=== PATIENT | male | born 1945 | race Two or more races ===

== ENCOUNTER 2016-06-13 15:01 | Inpatient (IN) | payer OTHER, MEDICAID ==
[2016-06-13] MEDS ORDERED: LIDO/EPI 1% **Not for Epidural 20 ML MDV IF ONE (18:00)
[2016-06-13] MEDS ORDERED: LIDO/EPI 1% **for epidural** 30 ML SDV IF ONE (18:00)
[2016-06-13] MEDS ORDERED: ACETAMINOPHEN 325 MG TAB PO PRN (18:14)
[2016-06-13] MEDS ORDERED: DIAZEPAM 5 MG TAB PO PRN (18:25)
[2016-06-13 20:12] LABS: ALANINE AMINOTRANSFERASE 35 IU/L (21-72); ALBUMIN 3.3 g/dL (3.5-5.0); ALKALINE PHOSPHATASE 72 IU/L (38-126); ANION GAP 7 mEq/L (8-16); ASPARTATE AMINOTRANSFERASE 36 IU/L (17-59); CALCIUM 9.1 mg/dL (8.5-10.4); CARBON DIOXIDE 21 mEq/l (22-31); CHLORIDE 111 mEq/L (97-110); CREATININE 1.2 mg/dL (0.7-1.3); GLOMERULAR FILTRATION RATE 60; GLUCOSE 99 mg/dL (70-100); POTASSIUM 3.5 mEq/L (3.5-5.2); SODIUM 139 mEq/L (134-144)
[2016-06-13] MEDS ORDERED: PNEUMOC 13-VAL CONJ-DIP CRM/PF 0.5 ML SYR IM ONE (20:38)
[2016-06-13] MEDS: FAMOTIDINE 20 MG TAB PO SCH (20:41)
[2016-06-14] MEDS ORDERED: DIAZEPAM 10 MG/2 ML SYR ONE (07:34)
[2016-06-14] MEDS: DIAZEPAM 10 MG/2 ML SYR IVP SCH ×5 (07:37→22:00)
[2016-06-14] MEDS: DEXMEDETOMIDINE HCL 400 MCG in NS 100 ML IV SCH (08:29)
[2016-06-14] MEDS ORDERED: NS 1,000 ML IV SCH (08:30)
[2016-06-14] MEDS ORDERED: HYDROCODONE/APAP 5/325 TAB PO PRN (08:30)
--- NOTE | 2016-06-14 08:43 | GHP ---
[f rep st] HISTORY AND PHYSICAL DATE OF ADMISSION: 06/13/2016 REASON FOR ADMISSION: Severe spinal cord stenosis with bilateral upper extremity weakness. HOSPITAL COURSE AND HISTORY OF MAJOR MEDICAL FINDINGS: The patient is a 70-year -old gentleman who presented to Dr. Reeves's outpatient clinic yesterday with complaints of bilateral feet and leg pain, back pain, and progressive weakness in his arms. He has perpherial vascular surgery in December 2015. Following that procedure, he developed pain in his right leg despite the surgery. He complained of continued pain into his right leg. He underwent ultrasound, which was found to have some continued stenosis, and was scheduled for another stent into that area in the upcoming future. Then in May of 2016, he started to have some back pain, but it was not a huge issue. He had pain going to his bilateral feet and his legs below his knees. He has been using a four- wheel walker since May of 2016, but used walking sticks for years prior to that time. He has had progressive weakness in his hands and his arms, is no longer able to feed himself, and that has been going on since April of 2016. He has been having neck pain, which has been stable for years. He has a history of rheumatoid arthritis, for which he takes daily pain medication for. The patient underwent a cervical MRI at [facility] on 06/11/2016, which demonstrated markedly anterior wedging of the C3 vertebral body with endplate irregularity and disc space narrowing at the C2-3 level, as well as the C5-6 level due to degenerative changes. 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 There is moderate central canal stenosis at C1 and C2-3 with cord signal changes. There is also evidence of mild encephalomalacia in the inferior left cerebellum. REVIEW OF SYSTEMS: Negative other than what is stated in the HPI. Please see for pertinent negatives, pertinent positives. PAST MEDICAL HISTORY: History of rheumatoid arthritis, history of peripheral vascular disease, history of chronic pain, history of hypercholesteremia. FAMILY HISTORY: His son is at his bedside helping him. He is alive and well without any significant past medical history. SOCIAL HISTORY: The patient is a former smoker. He quit 36 years ago. He does not use any alcohol. His and son are present in the exam room. ALLERGIES: No known drug allergies. HOME MEDICATIONS: Amitriptyline 20 mg 1 p.o. at bedtime. Atorvastatin 40 mg 1 p.o. daily. Plavix 75 mg 1 p.o. daily. Gabapentin 300 mg 1 p.o. every midday and every evening, with 600 mg q.a.m. [place] 5/325, 1-2 tabs q.4-6 hours p.r.n. pain. Leflunomide 20 mg 1 p.o. daily. Naproxen 500 mg 1 p.o. twice daily. Pantoprazole 40 mg 1 p.o. daily and prednisone 5 mg 1 p.o. daily at bedtime. PHYSICAL EXAM: VITALS: BP 159/69, heart rate is 71, he is 97% on room air, temp is 36.7. GENERAL: The patient is in no acute distress. He is alert and oriented. His son does translate for him. NEURO: He moves all extremities x4. In his bilateral upper extremities, in his deltoids, biceps, and triceps are 4-/5. His interossei are 2/5. He is 5/5 in his bilateral lower extremities , including his iliopsoas, quadriceps, plantar flexion, dorsiflexion and EHL. He has Jean's signs bilaterally. Absent patellar reflexes. DIAGNOSTIC REVIEW: The patient underwent MRI at [facility], which demonstrated basilar invagination of C2 into the foramen magnum with 1.5 cm severe cord compression and cord signal changes. There is severe spinal stenosis at the foramen magnum, down to C3. There is moderate stenosis from the occipital junction down to C7-T1 with advanced degenerative changes. At C2- 3 and C5-6 as well. ASSESSMENT/PLAN: The patient is a 70-year-old gentleman with a history of rheumatoid arthritis, who presented to the outpatient clinic with evidence of severe spinal canal stenosis, as well as basilar invagination, and cord compression with signal changes, who was admitted directly to [facility] Emergency Room for placement of tongs and tractions given his rapid progressive hand and leg weakness and myelopathy. This morning he was placed in tongs by Dr. Reeves and myself. Please see Dr. Reeves's procedure note for further details of this. The patient did tolerate this procedure well, and his exam was stable afterwards. He does have some residual pain in his thigh, but was denying any numbness or tingling in his hands post procedure. We will plan for the OR later possibly this weekend, depending on progress with reduction. Optimize pain management, morphine and Valium ordered. Precedex will be available as well for pain management. Consult medicine for medical clearance. Q.1 hour neuro checks ordered If the patient has any change in neurologic or motor exam, please notify Neurosurgery. /[id number]/MODL MTDD
--- NOTE | 2016-06-14 09:18 | CPEKG ---
Heart Rate: 110 RR Interval: 545 P-R Interval: 324 QRSD Interval: 78 QT Interval: 344 QTC Interval: 466 P Ivins: 0 QRS Ivins: 69 T Wave Ivins: -90 EKG Severity - ABNORMAL ECG - EKG Impression: SUPRAVENTRICULAR TACHYCARDIA (THERE WAS A "P" WAVE NOTED POST PVC, BUT THIS EKG Impression: WOULD BE A LENGTHY TN DURATION (324 ms)) EKG Impression: VENTRICULAR PREMATURE COMPLEX EKG Impression: LVH WITH SECONDARY REPOLARIZATION ABNORMALITY EKG Impression: ST DEPRESSION, CONSIDER ISCHEMIA, ANT-LAT LDS Electronically Signed By: Gustavo Lawson 15-Jun-2016 09:04:32
--- NOTE | 2016-06-14 09:23 | GCON ---
[f rep st] CONSULTATION DATE OF CONSULTATION: 06/14/2016 REASON FOR CONSULTATION: I was asked by Dr. Reeves to see the patient in regard to his medical prob lems, including rheumatoid arthritis and peripheral vascular disease. HISTORY OF PRESENT ILLNESS: This is a 70-year-old man who was admitted yesterday to the neurosurger y service for cervical stenosis. Apparently, he has had a few months of numbness in his bilateral h ands with decreased motor sensation. This was initially attributed to his rheumatoid arthritis. He proceeded to have an MRI, which showed severe cervical stenosis. He met with Dr. Reeves yesterday, who admitted him to the ICU for traction with plans for likely cervical fusion. In terms of his functional status, I do not think that he is able to attain 4 METS. He gets very sh ort of breath walking with a walker about 10-15 feet. He does not have coronary artery disease, though he does have peripheral vascular disease. He has b een on Plavix, but has been 2 days now without Plavix. He also has rheumatoid arthritis, which I presume led to his cervical issues. He takes leflunomide, as well as prednisone. PAST MEDICAL HISTORY: 1. Rheumatoid arthritis. 2. Peripheral vascular disease, status post what I understand to be a percutaneous stent placed in one of the arteries of his right leg. 3. History of a right TKA. MEDICATIONS: Please see medication reconciliation. ALLERGIES: None. FAMILY HISTORY: There is no heart disease in his family. SOCIAL HISTORY: He lives with his son. He quit smoking tobacco in 1980. He has never drank alcoho l. REVIEW OF SYSTEMS: A 10-point review of systems is conducted and is negative except per HPI. PHYSICAL EXAM: VITAL SIGNS: Blood pressure 159/69, heart rate 71, respiration rate 16, saturating 97% on room air, temperature is 36.7. GENERAL: The patient is a pleasant man who is lying flat on his back in traction, appears somewhat uncomfortable. HEENT: In traction. CARDIOVASCULAR: Some p remature beats. I think that his underlying rhythm is regular. He does not have any murmurs, rubs, or gallops. PULMONARY: From the anterior aspect shows him to be clear bilaterally. He is not in any respiratory distress. ABDOMEN: Soft, nontender, nondistended. SKIN: No rash. : He does have a Lawrence catheter in place. NEUROLOGIC: Alert and oriented x3. He is moving all extre mities. I did not perform a full neurologic exam. PSYCHIATRIC: Normal mood and affect. LABS: Basic metabolic panel shows him to have a potassium of 3.5, creatinine of 1.2, bicarb is 21. IMAGING: I reviewed his cervical spine x-ray. This shows basilar invagination with posterior sublu xation of the dens, in addition to other degenerative disease. IMPRESSION AND PLAN: This is a 70-year-old man with cervical spine impingement, currently in tracti on, awaiting surgery likely in a few days. 1. Cervical spine pathology: Defer to Neurosurgery on management. He is currently getting tractio n. He is quite uncomfortable with this. He does have multiple sedatives ordered, including Precede x. I think Precedex will be quite helpful for him, though this has yet to be started. I have yanelis nued his outpatient pain medications. 2. Perioperative evaluation: Does not have any history of heart disease, though he does have perip heral vascular disease with an intervention. I do not think he can attain 4 METS. It seems as real gh this surgery is going to be necessary no matter what though. I will get a preoperative EKG, as w ell as echocardiogram to help assess his cardiac function and manage fluids perioperatively. 3. Rheumatoid arthritis: He is currently on prednisone and leflunomide. We will continue those at present doses. Given his chronic steroid use, would give him stress dose steroids perioperatively. 4. Peripheral vascular disease: We will hold his Plavix in anticipation for cervical spinal surger y. Otherwise, difficult to assess whether or not he has symptoms. Thank you for involving Hospital Medicine in the care of the patient. We will continue to follow or [place]. /[id number]/MODL
[2016-06-14] MEDS: hydrALAZINE 20 MG/ML VIAL IVP PRN (10:13)
[2016-06-14] MEDS: GABAPENTIN 300 MG CAP PO SCH ×3 (11:03→20:31)
[2016-06-14] MEDS: SENNOSIDES/DOCUSATE SODIUM TAB PO SCH ×2 (11:03→20:32)
[2016-06-14] MEDS: ATORVASTATIN CALCIUM 40 MG TAB PO SCH (11:03)
[2016-06-14] MEDS: LEFLUNOMIDE 20 MG TAB PO SCH (11:04)
[2016-06-14] MEDS: PANTOPRAZOLE SODIUM 40 MG TAB PO SCH (11:04)
[2016-06-14] MEDS: ENOXAPARIN 40 MG/0.4 ML SYR SC SCH (11:04)
[2016-06-14] MEDS: FAMOTIDINE 20 MG TAB PO SCH ×2 (11:18→20:31)
[2016-06-14] MEDS: niCARdipine/NACL 200 ML IV SCH (13:11)
--- NOTE | 2016-06-14 13:27 | ECHO ---
[id number] + + [address] : : [place] [address] : : [phone] + + Adult Echocardiographic Report + ------+ :Name: ANNA COLEMANsuzie Date: 06/14/2016 10:14 AM : : Hospital Admission Number: [id number] Locatio n: 250: :: 1945 Gender: Male Height: 62 in : :Age: 70 yrs Race: [facility] Weight: 102 lb : :Reason For Study: Eval LV Fx, Pt is on roto-bed in traction : : BSA: 1.4 meters 2 : :History: Pre Op Clearance, 1st degree block : + ------+ MMode/2D Measurements \T\ Calculations IVSd: 0.84 cm LVIDd: 4.5 cm FS: 28.9 % MV Diam: 3.0 cm LVPWd: 1.1 cm LVIDs: 3.2 cm EDV(Teich): 93.1 ml ESV(Teich): 41.3 ml EF(Teich): 55.7 % Ao root diam: 2.8 cm LVOT diam: 2.0 cm ACS: 1.7 cm LVOT area: 3.1 cm2 Normal Measurement Values: + + :LVIDd (3.5-5.7cm) IVSd (0.6-1.1cm) LVPWd (0.6-1.1cm) Aortic Root (2.0-3.7cm)Left Atrium (1.5-4.0cm): :LV Vol(d) (76-115ml) LV Vol(s) (29-48ml) Ejec Fraction (50-65%)PV Yordan (0.6- 1.2m/s) TV Yordan (0.4-1.0m/s) : :MV E Yordan (0.8-1.0m/s)MV A Yordna (0.3-1.0m/s)LVOT Yordan (0.7-1.2m/s) Asc Ao Yordan ( 0.9-1.8m/s) : + + Doppler Measurements \T\ Calculations MV E max yoradn: MV V2 mean: Ao mean PG: AI max yordan: 122.4 cm/sec 71.1 cm/sec 5.0 mmHg 370.6 cm/sec MV mean P.5 mmHgAo V2 mean: AI max PG: MV V2 VTI: 17.8 cm 101.1 cm/sec 54.9 mmHg MV area (1 diam): Ao V2 VTI: 26.7 cm 7.1 cm2 ANDER(I,D): 1.6 cm2 MVA(VTI): 2.4 cm2 MV Flow area(1diam): 7.1 cm2 LV V1 max: MR max yordan: MR(RF 1 diam): SV(MV 1 diam): 82.4 cm/sec 476.3 cm/sec 19.1 % 125.7 ml LV V1 max PG: MR max P.4 mmHg SI(MV 1 diam): 2.7 mmHg LV V1 mean P.5 ml/m2 1.1 mmHg SV(LVOT): 42.2 ml LV V1 mean: 44.9 cm/sec LV V1 VTI: 13.4 cm PA V2 max: RF(MV,Ao)(1 diam): - 92.3 cm/sec 0.29 PA max P.4 mmHgRF(MV,LVOT)(1diam): 0.66 Left Ventricle The left ventricle is normal in size. There is normal left ventricular wall thickness. Left ventricular systolic function is low normal. Ejection Fraction = 55%. There is Doppler evidence for diastolic dysfunction. There is mid inferolateral hypokinesis. Right Ventricle The right ventricle is normal in size and function. Atria The left atrial size is normal. Right atrial size is normal. Mitral Valve There is no mitral valve stenosis. There is mild to moderate mitral regurgitation. Tricuspid Valve Normal tricuspid valve. There is trace tricuspid regurgitation. Right ventricular systolic pressure is normal. Aortic Valve The aortic valve is normal in structure and function. There is no aortic stenosis. Mild aortic regurgitation. Pulmonic Valve The pulmonic valve is normal in structure and function. There is no pulmonic valvular regurgitation. Great Vessels The aortic root is normal size. Pericardium/Pleural There is no pericardial effusion. Conclusion A complete two-dimensional transthoracic echocardiogram was performed (2D, M-mode, Doppler and color flow Doppler). Left ventricular systolic function is low normal. Ejection Fraction = 55%. There is Doppler evidence for diastolic dysfunction. There is mid inferolateral hypokinesis. The right ventricle is normal in size and function. The left atrial size is normal. There is mild to moderate mitral regurgitation. There is trace tricuspid regurgitation. Right ventricular systolic pressure is normal. The aortic valve is normal in structure and function. Mild aortic regurgitation. There is no pericardial effusion. Final Reading Physician: Juan C Card signed on 06/14/2016 01:26 PM Ordering Physician: Darshan Hernandez Performed By: Erick Dumont, TIMOTHYCS
--- NOTE | 2016-06-14 13:54 | GCON ---
[f rep st] CONSULTATION ARCHITECTURE PROFESSOR CONSULTATION The patient is a 70-year-old [place] gentleman with a past medical history including rheumatoid arth ritis, peripheral vascular disease and hypercholesterolemia. He was admitted under Dr. Reeves for n tyshawn pain. He has had problems with this for years. Recent MRI demonstrated anterior wedging of the C3 vertebrae with endplate irregularity, disk space narrowing at C2-C3 as well as C5-C6. He was ad mitted with severe spinal canal stenosis. He has been placed on cervical traction as well as rotati onal bed. Currently, he is on Precedex. He does not speak Belgian. All history is gleaned from [facility] medical record. PAST MEDICAL HISTORY: Significant for rheumatoid arthritis, peripheral vascular disease, chronic pa in, hypercholesterolemia. ALLERGIES: No known allergies to medications. SOCIAL HISTORY: Previous heavy smoker, none for 36 years. No significant alcohol use. He is retir ed. He has excellent family support. MEDICATIONS: At home include amitriptyline, atorvastatin, Plavix, gabapentin, [place], leflunomide, n aproxen, pantoprazole, prednisone. PHYSICAL EXAM: VITAL SIGNS: Blood pressure is 152/69, pulse is 90, respirations 16. He is afebril e. Oxygen saturation 100% on 2 L. GENERAL: He is a well-developed, elderly male who is resting co mfortably on Precedex drip and rotational bed and cervical traction. HEENT: Eyes are PADMINI, EOMI. Throat shows no erythema or tonsillar hypertrophy. NECK: Deferred. HEART: Regular rate and rhyth m with a 2/6 systolic murmur at the left sternal border without radiation. LUNGS: Diminished breat h sounds. Mild prolongation of expiratory phase but there is no wheeze. ABDOMEN: Soft, nontender. Bowel sounds present in all 4 quadrants. EXTREMITIES: No clubbing, cyanosis or edema. LABORATORIES: Sodium 139, potassium 3.5, chloride 111, CO2 21, BUN 31, creatinine 1.2, glucose is 9 9. IMPRESSION: 1. Chronic neck pain. 2. Severe spinal canal stenosis as well as basilar invagination and cord compression. 3. Rheumatoid arthritis. 4. Hypercholesterolemia. 5. Chronic pain. RECOMMENDATIONS: 1. Close cardiovascular monitoring. 2. Echocardiogram is currently pending. 3. Agree with cervical traction as well as rotational bed. 4. Continue Precedex as you were doing. 5. DVT and PE prophylaxis. 6. Stress ulcer prophylaxis. /[id number]/MODL
--- NOTE | 2016-06-14 16:17 | HOSPPROG ---
Hospitalist Progress Note Assessment/Plan: 70 yo M with hx of RA and severe cervical spinal stenosis with associated inability to ambulate # severe cervical spinal stensosi: with associated cord compression and now inability to ambulate, patient currently in cervical traction with plan for surgical intervention when better alignment obtained. # RA: has been severe, continued on leflunomide and prednisone # htn: not chronically on bp meds and bp elevatoin possibly related to pain, prn hydralazine for now, monitoring # diastolic heart failure: with relatively preserved EF at 55%, does not have e/ o decompensation, will be cautious with fluids perioperatively # IP status, high risk Objective: Vital Signs Temp Pulse Resp BP Pulse Ox 36.8 C 80 18 123/66 H 100 06/14/16 16:00 06/14/16 16:00 06/14/16 16:00 06/14/16 16:00 06/14/16 16:00 Laboratory Results 06/13/16 19:00 06/13/16 06/14/16 06/15/16 05:59 05:59 05:59 Intake Total 450 Balance 450 ICD10 Worksheet Patient Problems: Problems Problem Status Onset Spinal stenosis in cervical region Acute - ICD10 Problem Qualifiers (1) Spinal stenosis in cervical region
[2016-06-14] MEDS: predniSONE 5 MG TAB PO SCH (20:31)
[2016-06-14] MEDS: AMITRIPTYLINE HCL 10 MG TAB PO SCH (20:31)
[2016-06-15] MEDS: DIAZEPAM 10 MG/2 ML SYR IVP SCH ×6 (01:49→21:01)
[2016-06-15] MEDS: DEXMEDETOMIDINE HCL 400 MCG in NS 100 ML IV SCH ×2 (02:39→21:02)
[2016-06-15 04:32] LABS: ANION GAP 12 mEq/L (8-16); CALCIUM 8.4 mg/dL (8.5-10.4); CARBON DIOXIDE 15 mEq/l (22-31); CHLORIDE 113 mEq/L (97-110); CREATININE 1.2 mg/dL (0.7-1.3); GLOMERULAR FILTRATION RATE 60; GLUCOSE 57 mg/dL (70-100); POTASSIUM 4.5 mEq/L (3.5-5.2); SODIUM 140 mEq/L (134-144)
--- NOTE | 2016-06-15 07:56 | GPN ---
[f rep st] PROCEDURE NOTE DATE OF PROCEDURE: 06/14/2016 PREOP DIAGNOSES: 1. 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 2. Cervical stenosis 3. Rapid progressive myelopathy. PROCEDURE: Cranial Mcdermott-Wells tongs placement for cervical traction. POSTOP DIAGNOSES: 1. 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 2. Cervical stenosis. 3. Rapid progressive myelopathy. COMPLICATIONS: None. ANESTHESIA: Local anesthetic with Marcaine with epinephrine and IV pain medications. CERTIFIED BENCH JEWELER TECHNICIAN: None. SPECIMENS: None. INDICATIONS: The patient is a 70-year-old gentleman, who has presented with rapid onset of progressive myelopathy and weakness. Imaging demonstrated severe basilar invagination with spinal cord compression. He presents now to the hospital for admission for cervical traction. This dictation is for placement of the cranial Mcdermott-Wells tongs. DESCRIPTION OF PROCEDURE: The patient was laid flat on the RotoRest bed. After consent and a time-out was completed, we marked out 2 small incisions just 1 fingerbreadth above the bilateral pinna. These areas were then prepped sterilely. The sites were then infiltrated with Marcaine with epinephrine to the level of the pericranium. We then placed 2 Mcdermott-Wells tongs pins bilaterally 1 fingerbreadth above the pinna to the appropriate depth using the spring loaded pin mechanism. The patient tolerated the procedure well. There were no complications. /[id number]/MODL MTDD
[2016-06-15] MEDS ORDERED: GABAPENTIN 300 MG CAP PO SCH (08:00)
[2016-06-15] MEDS: LEFLUNOMIDE 20 MG TAB PO SCH (08:42)
[2016-06-15] MEDS: GABAPENTIN 300 MG CAP PO SCH ×3 (08:42→21:01)
[2016-06-15] MEDS: SENNOSIDES/DOCUSATE SODIUM TAB PO SCH ×2 (08:42→21:01)
[2016-06-15] MEDS: FAMOTIDINE 20 MG TAB PO SCH ×2 (08:43→21:01)
[2016-06-15] MEDS: ATORVASTATIN CALCIUM 40 MG TAB PO SCH (08:43)
[2016-06-15] MEDS: PANTOPRAZOLE SODIUM 40 MG TAB PO SCH (08:43)
[2016-06-15] MEDS: ENOXAPARIN 40 MG/0.4 ML SYR SC SCH (08:45)
[2016-06-15] MEDS ORDERED: CHLORHEXIDINE GLUC HIBICLENS 118 ML BTL TP SCH (09:00)
[2016-06-15] MEDS: NS W/ 20 KCl/L 1,000 ML IV SCH ×2 (09:15→21:07)
--- NOTE | 2016-06-15 09:28 | PDINTPN ---
Burr Sander Progress Note Assessment/Plan: Assessment: * Chronic Neck pain * Spinal stenosis with cord compression * RA * Chronic pain * Sedation-adequate Plan: Continue traction with rotational bed Surgery in few days Subjective: Resting comfortably Objective: Vital Signs Temp Pulse Resp BP Pulse Ox 36.8 C 68 20 124/53 H 100 06/15/16 08:00 06/15/16 09:00 06/15/16 09:00 06/15/16 09:00 06/15/16 09:00 Laboratory Results 06/15/16 04:10 06/14/16 06/15/16 06/16/16 05:59 05:59 05:59 Intake Total 450 2685 Output Total 945 Balance 450 1740 Physical Exam - Physical Exam General Appearance: other (sedated), No alert EENT: PERRL/EOMI, normal ENT inspection, pharynx normal, TMs normal Neck: other (c-collar) Respiratory: chest non-tender, lungs clear, normal breath sounds Cardiac/Chest: normal peripheral pulses, regular rate, rhythm, systolic murmur Peripheral Pulses: 2+: carotid (R), carotid (L), femoral (R), femoral (L), dorsalis-pedis (R), dorsalis-pedis (L) Abdomen: normal bowel sounds, non-tender, soft Male Genitalia: deferred Rectal: deferred Skin: normal color, warm/dry Extremities: normal range of motion, non-tender, normal inspection, normal capillary refill ICD10 Worksheet Patient Problems: Problems Problem Status Onset Spinal stenosis in cervical region Acute
--- NOTE | 2016-06-15 10:15 | NEUSURGPN ---
<Ebony Barboza - Last Filed: 06/15/16 10:15> Catheter Insertion Date: 06/14/16 Neurosurgery Physical Exam - Vitals, I&O, Labs I and O 06/14/16 06/15/16 06/16/16 05:59 05:59 05:59 Intake Total 450 2685 Output Total 945 Balance 450 1740 Weight 46.6 kg Intake: Oral (ml) 450 950 IV Infused (ml) 1735 Dexmedetomidine HCl 400 110 mcg In Ns 100 ml @ Titrate IV CONT ANH Rx#: [id number] Ns 1,000 ml @ 20 mls/hr 1625 IV CONT ANH Rx#: [id number] Output: Urine (ml) 945 Catheter 945 Other: Intake Quantity Yes Sufficient Number of Voids Toilet 2 Number of Stools Catheter 1 Vital Signs Temp Pulse Resp BP Pulse Ox 36.8 C 60 21 H 131/59 H 100 06/15/16 08:00 06/15/16 08:00 06/15/16 08:00 06/15/16 08:00 06/15/16 08:00 Laboratory Results 06/15/16 04:10 ICD10 Worksheet Patient Problems: Problems Problem Status Onset Spinal stenosis in cervical region Acute <Los Reeves - Last Filed: 06/15/16 16:45> Assessment/Plan: neurosurgery attending note i met with the patient and his family after reviewing his new CT C spine. He has a fused O-C1-C2 segment with posterior fusion C2/3. There is no migration of the odontoid process, but there is improvement in his overall alignement from C2 and below. he continues to have stenosis, but his strength is slightly improved in his hands from a few days ago. I discussed the options with the family and reviewed the films with them and their friend who is a neurointensivist in [place]. explained anterior versus posterior options, as well as short versus long segment fusion/decompression. i also offered them transfer to the [facility] if they desired. the understand all options and would like to proceed with surgery as planned: sub-occipital craniectomy with C1 -C3 laminectomy and posterior fusion Occiput-C4 (versus T1 if bone quality is poor). consents have been signed and surgery is scheduled for 06/17 given his recent use of plavix. Neurosurgery Physical Exam - Vitals, I&O, Labs I and O 06/14/16 06/15/16 06/16/16 05:59 05:59 05:59 Intake Total 450 2685 360 Output Total 945 275 Balance 450 1740 85 Weight 46.6 kg Intake: Oral (ml) 450 950 360 IV Infused (ml) 1735 Dexmedetomidine HCl 400 110 mcg In Ns 100 ml @ Titrate IV CONT ANH Rx#: [id number] Ns 1,000 ml @ 20 mls/hr 1625 IV CONT ANH Rx#: [id number] Output: Urine (ml) 945 275 Catheter 945 275 Other: Intake Quantity Yes Sufficient Number of Voids Toilet 2 Number of Stools Catheter 1 Vital Signs Temp Pulse Resp BP Pulse Ox 36.3 C 65 18 158/58 H 100 06/15/16 15:00 06/15/16 16:00 06/15/16 16:00 06/15/16 16:00 06/15/16 16:00 Laboratory Results 06/15/16 04:10
--- NOTE | 2016-06-15 16:39 | HOSPPROG ---
Hospitalist Progress Note Assessment/Plan: 70 yo M with hx of RA and severe cervical spinal stenosis with associated inability to ambulate # severe cervical spinal stensosi: with associated cord compression and now inability to ambulate, patient currently in cervical traction with plan for surgical intervention when better alignment obtained. Repeat c spine xray and CT showing that c2/c3 in alignment in traction # RA: has been severe, continued on leflunomide and prednisone # htn: not chronically on bp meds and bp elevatoin possibly related to pain, prn hydralazine for now, monitoring # diastolic heart failure: with relatively preserved EF at 55%, does not have e/ o decompensation, will be cautious with fluids perioperatively # IP status, high risk Care plan reviewed with Dr. Fenton and multidisciplinary care team on rounds Subjective: no signficant overnight events, patient remains in traction Objective: Vital Signs Temp Pulse Resp BP Pulse Ox 36.3 C 65 18 158/58 H 100 06/15/16 15:00 06/15/16 16:00 06/15/16 16:00 06/15/16 16:00 06/15/16 16:00 Laboratory Results 06/15/16 04:10 06/14/16 06/15/16 06/16/16 05:59 05:59 05:59 Intake Total 450 2685 360 Output Total 945 275 Balance 450 1740 85 somnolent, in roto bed in traction anicteric c collar on rrr cta b to ant exam soft nt nd ICD10 Worksheet Patient Problems: Problems Problem Status Onset Spinal stenosis in cervical region Acute - ICD10 Problem Qualifiers (1) Spinal stenosis in cervical region
[2016-06-15] MEDS: hydrALAZINE 20 MG/ML VIAL IVP PRN (20:12)
[2016-06-15] MEDS: AMITRIPTYLINE HCL 10 MG TAB PO SCH (21:00)
[2016-06-15] MEDS: predniSONE 5 MG TAB PO SCH (21:01)
[2016-06-15] MEDS: TEARS/DEXTRAN 70/HYPROMELLOSE 15 ML OPHT.BTL EACHEYE PRN (21:13)
--- NOTE | 2016-06-15 23:33 | CPEKG ---
Heart Rate: 99 RR Interval: 606 P-R Interval: 208 QRSD Interval: 76 QT Interval: 348 QTC Interval: 447 P [place]: 79 QRS [place]: 46 T Wave [place]: 223 EKG Severity - ABNORMAL ECG - EKG Impression: SINUS RHYTHM EKG Impression: PROBABLE LVH WITH SECONDARY REPOL ABNRM EKG Impression: BORDERLINE INFERIOR Q WAVES EKG Impression: REPOL ABNRM, PROBABLE ISCHEMIA, ANT-LAT LEADS Electronically Signed By: Gustavo Lawson 17-Jun-2016 18:26:01
[2016-06-15 23:58] LABS: ANION GAP 10 mEq/L (8-16); CALCIUM 8.6 mg/dL (8.5-10.4); CARBON DIOXIDE 15 mEq/l (22-31); CHLORIDE 112 mEq/L (97-110); CREATININE 0.9 mg/dL (0.7-1.3); GLOMERULAR FILTRATION RATE > 60; GLUCOSE 124 mg/dL (70-100); POTASSIUM 5.7 mEq/L (3.5-5.2); SODIUM 137 mEq/L (134-144); SPECIMEN HEMOLYSIS 142
[2016-06-16] MEDS: NS 1,000 ML IV SCH ×2 (00:30→14:40)
[2016-06-16] MEDS: DIAZEPAM 10 MG/2 ML SYR IVP SCH ×6 (01:55→21:49)
[2016-06-16 04:45] LABS: HEMATOCRIT 40.2 % (40.0-51.0); HEMOGLOBIN 12.3 g/dL (13.7-17.5); MEAN CELL HEMOGLOBIN 26.2 pg (27.9-34.1); MEAN CELL HEMOGLOBIN CONCENTR. 30.6 g/dL (32.4-36.7); MEAN CELL VOLUME 85.7 fL (81.5-99.8); RED BLOOD CELL COUNT 4.69 10^6/uL (4.40-6.38); RED CELL DISTRIBUTION WIDTH 15.9 % (11.5-15.2)
[2016-06-16 05:13] LABS: ANION GAP 6 mEq/L (8-16); CALCIUM 7.4 mg/dL (8.5-10.4); CARBON DIOXIDE 17 mEq/l (22-31); CHLORIDE 116 mEq/L (97-110); CREATININE 0.8 mg/dL (0.7-1.3); GLOMERULAR FILTRATION RATE > 60; GLUCOSE 109 mg/dL (70-100); POTASSIUM 4.8 mEq/L (3.5-5.2); SODIUM 139 mEq/L (134-144); SPECIMEN HEMOLYSIS 126
[2016-06-16] MEDS: hydrALAZINE 20 MG/ML VIAL IVP PRN (07:33)
[2016-06-16] MEDS: niCARdipine/NACL 200 ML IV SCH ×3 (07:45→23:42)
[2016-06-16] MEDS: FAMOTIDINE 20 MG TAB PO SCH ×2 (08:22→20:15)
[2016-06-16] MEDS: PANTOPRAZOLE SODIUM 40 MG TAB PO SCH (08:22)
[2016-06-16] MEDS: LEFLUNOMIDE 20 MG TAB PO SCH (08:22)
[2016-06-16] MEDS: GABAPENTIN 300 MG CAP PO SCH ×3 (08:22→20:15)
[2016-06-16] MEDS: ATORVASTATIN CALCIUM 40 MG TAB PO SCH (08:22)
[2016-06-16] MEDS: SENNOSIDES/DOCUSATE SODIUM TAB PO SCH ×2 (08:23→20:14)
[2016-06-16] MEDS: ENOXAPARIN 40 MG/0.4 ML SYR SC SCH (08:23)
[2016-06-16] MEDS: TEARS/DEXTRAN 70/HYPROMELLOSE 15 ML OPHT.BTL EACHEYE PRN (08:24)
--- NOTE | 2016-06-16 09:35 | PDINTPN ---
Publicity Manager Progress Note Assessment/Plan: Assessment: * Chronic Neck pain * Spinal stenosis with cord compression * RA * Chronic pain * Sedation-adequate Plan: Continue traction with rotational bed Surgery soon Subjective: comfortable. Objective: Vital Signs Temp Pulse Resp BP Pulse Ox 36.3 C 96 28 H 158/66 H 97 06/16/16 08:32 06/16/16 08:32 06/16/16 08:32 06/16/16 08:32 06/16/16 08:32 Laboratory Results 06/16/16 04:20 06/16/16 04:20 06/15/16 06/16/16 06/17/16 05:59 05:59 05:59 Intake Total 2685 2830 Output Total 945 1775 Balance 1740 1055 Physical Exam - Physical Exam General Appearance: other (sedated), No alert EENT: PERRL/EOMI, normal ENT inspection Neck: other (c-collar) Respiratory: chest non-tender, lungs clear, normal breath sounds Cardiac/Chest: normal peripheral pulses, regular rate, rhythm Peripheral Pulses: 2+: carotid (R), carotid (L), femoral (R), femoral (L), dorsalis-pedis (R), dorsalis-pedis (L) Abdomen: normal bowel sounds, non-tender, soft Male Genitalia: deferred Rectal: deferred Skin: normal color, warm/dry ICD10 Worksheet Patient Problems: Problems Problem Status Onset Spinal stenosis in cervical region Acute
--- NOTE | 2016-06-16 09:40 | NEUSURGPN ---
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 Reeves Subjective: family at bedside, patient speaks no jordanian, son translates. Son is very positive. Pt appears tired, follows commands but does not speak very much. Objective: NAD, in traction bed and ccollar in good position follows commands no facial droop MAEx4, antigravity, ekg monitor tech strength 3/5 today but appears effort dependent. Catheter Insertion Date: 06/14/16 - Physician Discussed Patient with Dr.: Reeves Neurosurgery Physical Exam - Vitals, I&O, Labs I and O 06/15/16 06/16/16 06/17/16 05:59 05:59 05:59 Intake Total 2685 2830 Output Total 945 1775 Balance 1740 1055 Intake: Oral (ml) 950 860 IV Infused (ml) 1735 1970 Dexmedetomidine HCl 400 110 120 mcg In Ns 100 ml @ Titrate IV CONT ANH Rx#: [id number] NS W/ 20 KCl/L 1,000 ml @ 900 75 mls/hr IV CONT ANH Rx #:[id number] Ns 1,000 ml @ 20 mls/hr 1625 IV CONT ANH Rx#: [id number] Ns 1,000 ml @ 75 mls/hr 950 IV CONT ANH Rx#: [id number] Output: Urine (ml) 945 1775 Catheter 945 1775 Other: Intake Quantity Yes Sufficient Number of Stools Catheter 1 Vital Signs Temp Pulse Resp BP Pulse Ox 36.3 C 96 28 H 158/66 H 97 06/16/16 08:32 06/16/16 08:32 06/16/16 08:32 06/16/16 08:32 06/16/16 08:32 Laboratory Results 06/16/16 04:20 06/16/16 04:20 ICD10 Worksheet Patient Problems: Problems Problem Status Onset Spinal stenosis in cervical region Acute
[2016-06-16] MEDS ORDERED: ceFAZolin 2 GM/DEXTROSE 100 ML IV ONE (09:43)
[2016-06-16] MEDS ORDERED: BISACODYL 10 MG SUPP PR PRN (12:05)
--- NOTE | 2016-06-16 12:41 | HOSPPROG ---
Hospitalist Progress Note Assessment/Plan: 70 yo M with hx of RA and severe cervical spinal stenosis with associated inability to ambulate # severe cervical spinal stenosis: with associated cord compression and now inability to ambulate, patient currently in cervical traction with plan for surgical intervention when better alignment obtained. Repeat c spine xray and CT showing that c2/c3 in alignment in traction # htn: not chronically on bp meds but has had intermittent htn since admission, echo performed without any significant issues as next, also tachycardic in last 2 days. Likely at least in part driven by pain/anxiety. Continue prn hydralazine , pain/anxiety meds. Does have pulm infiltrates so pna also a possibility though no elevated wbc or clear pulm sxs so holding off on abx for now # pulmonary infiltrates: personally reviewed cxr--with diffuse micronodular pulm infiltrates presumably related to RA, LLL infiltrate atelectasis versus LLL PNA as well, would be at risk for aspiration certainly given traction/lying flat/sedating meds. Holding off on abx but would have low threshold to start tx for aspiration pna if any s/s infection occur. Pulmonary toilet very challenging given begin in traction/sedated etc. Minimizing sedation as able, IS , deep breath/cough as able. # RA: has been severe, continued on leflunomide and prednisone, has diffuse pulmonary infiltrates likely chronic and related to RA # diastolic heart failure: with relatively preserved EF at 55%, does not have e/ o decompensation, will be cautious with fluids perioperatively # IP status, high risk Care plan reviewed with Dr. Fenton and multidisciplinary care team on rounds. Further hx obtained from patients son present at bedside Subjective: no significant overnight events, patient remains quite somnolent, in traction, states his bilateral hands hurt Objective: Vital Signs Temp Pulse Resp BP Pulse Ox 36.4 C 102 H 24 H 151/56 H 96 06/16/16 12:00 06/16/16 12:18 06/16/16 12:18 06/16/16 12:18 06/16/16 12:18 Laboratory Results 06/16/16 04:20 06/16/16 04:20 06/15/16 06/16/16 06/17/16 05:59 05:59 05:59 Intake Total 2685 2830 Output Total 945 1775 Balance 1740 1055 somnolent, arousable, in roto bed in traction anicteric c collar on rrr cta b to ant exam, normal wob soft nt nd no cce warm dry well perfused somnolent but arousable, bue weakness - Time Spent With Patient Time Spent with Patient: greater than 35 minutes Time Spent with Patient: Greater than 35 minutes spent on this patients care, greater than 50% of time spent counseling, educating, and coordinating care regarding the above mentioned plan. ICD10 Worksheet Patient Problems: Problems Problem Status Onset Spinal stenosis in cervical region Acute - ICD10 Problem Qualifiers (1) Spinal stenosis in cervical region
[2016-06-16] MEDS: predniSONE 5 MG TAB PO SCH (20:14)
[2016-06-16] MEDS: AMITRIPTYLINE HCL 10 MG TAB PO SCH (20:15)
[2016-06-16] MEDS ORDERED: NS 500 ML IV ONE (22:41)
--- NOTE | 2016-06-16 22:48 | HOSPPROG ---
Hospitalist Progress Note Assessment/Plan: x cover note called to bedside to eval tachycardia and increased oxygen requirements chart reviewed 70 y/o male immunosuppressed secondary to RA with severe cervical spinal stenosis cxr done 06/15 reviewed showing possible LLL infiltrate a/p #acute resp failure with tachycardia suspect aspiration pneumonia eval for severe sepsis (I considered PE but think this is less likely given that he has been on Lovenox for prophylaxis) Will consider CTA chest if worsening, but don' t want to start anticoagulation given planned upcoming surgery -blood cultures -venous lactate -NS Bolus -Erta 1gm IV Objective: Vital Signs Temp Pulse Resp BP Pulse Ox 36.7 C 117 H 24 H 176/85 H 96 06/16/16 18:00 06/16/16 19:00 06/16/16 19:00 06/16/16 19:00 06/16/16 19:00 Laboratory Results 06/16/16 04:20 06/16/16 04:20 06/15/16 06/16/16 06/17/16 05:59 05:59 05:59 Intake Total 2685 2830 875 Output Total 945 1775 450 Balance 1740 1055 425 ICD10 Worksheet Patient Problems: Problems Problem Status Onset Spinal stenosis in cervical region Acute
[2016-06-16] MEDS: ERTAPENEM 1 GM in NS 100 ML IV SCH (23:57)
[2016-06-17 00:28] LABS: % IMMATURE GRANULYOCYTES 0.2 % (0.0-1.1); ABSOLUTE IMMATURE GRANULOCYTES 0.02 10^3/uL (0.00-0.10); ADD DIFF? NO; ADD MORPH? NO; ADD SCAN? NO; ATYPICAL LYMPHOCYTE FLAG 0 (0-99); FRAGMENT RBC FLAG 0 (0-99); HEMATOCRIT 42.2 % (40.0-51.0); HEMOGLOBIN 13.4 g/dL (13.7-17.5); LEFT SHIFT FLG 60 (0-99); LIPEMIA HEMOLYSIS FLAG 80 (0-99); MEAN CELL HEMOGLOBIN 26.6 pg (27.9-34.1); MEAN CELL HEMOGLOBIN CONCENTR. 31.8 g/dL (32.4-36.7); MEAN CELL VOLUME 83.7 fL (81.5-99.8); MEAN PLATELET VOLUME 11.4 fL (8.7-11.7); PLATELET CLUMPS FLAG 0 (0-99); PLATELET COUNT 169 10^3/uL (150-400); RED BLOOD CELL COUNT 5.04 10^6/uL (4.40-6.38)
[2016-06-17 00:56] LABS: INR 1.13 (0.83-1.16); PROTIME(PATIENT) 14.4 SEC (12.0-15.0)
[2016-06-17 00:57] LABS: APTT 33.1 SEC (23.0-38.0)
[2016-06-17 01:04] LABS: LACGHOST ORDER
[2016-06-17] MEDS: DIAZEPAM 10 MG/2 ML SYR IVP SCH ×4 (02:58→15:43)
[2016-06-17 04:52] LABS: ANION GAP 10 mEq/L (8-16); CALCIUM 7.6 mg/dL (8.5-10.4); CARBON DIOXIDE 15 mEq/l (22-31); CHLORIDE 114 mEq/L (97-110); GLOMERULAR FILTRATION RATE > 60; GLUCOSE 170 mg/dL (70-100); SODIUM 139 mEq/L (134-144)
[2016-06-17] MEDS: niCARdipine/NACL 200 ML IV SCH (05:04)
[2016-06-17 05:05] LABS: BASE EXCESS -7.4 mEq/L (-2.5-2.5); BICARBONATE 17 mEq/L (22-26); MEASURED OXYGEN SATURATION 92 % (92-95); PCO2 31 mmHg (34-38); PO2 72 mmHg (65-75); TCO2 18 mEq/L (23-27)
[2016-06-17] MEDS ORDERED: ceFAZolin 2 GM/DEXTROSE 100 ML IV ONE (06:00)
[2016-06-17] MEDS ORDERED: SKIN ADHESIVE (DERMABOND) 1 EACH TP ONE (07:13)
[2016-06-17] MEDS ORDERED: THROMBIN (BOVINE) 20,000 UNIT VIAL TP ONE (07:14)
[2016-06-17] MEDS ORDERED: BUPIVACAINE/EPI 0.25% 30 ML SDV ONE (07:14)
[2016-06-17] MEDS ORDERED: BACITRACIN 50,000 UNITS/10 ML SYR IRR ONE (07:14)
[2016-06-17] MEDS ORDERED: BUPIVACAINE 0.25% 30 ML SDV ONE (07:14)
[2016-06-17] MEDS ORDERED: CEFAZOLIN 2 GM/DEXTROSE/100 ML BAG IV ONE (07:24)
[2016-06-17] MEDS ORDERED: DEXAMETHASONE 4 MG/ML VIAL ONE (07:40)
[2016-06-17] MEDS ORDERED: ROCURONIUM 50 MG/5 ML VIAL ONE (07:40)
[2016-06-17] MEDS ORDERED: SUCCINYLCHOLINE CHLORIDE*ANESTHESIA ONLY*200 MG/10 ML SYR IVP ONE (07:40)
[2016-06-17] MEDS ORDERED: fentaNYL 100 MCG/2 ML INJ ONE ×3 (07:40→11:59)
[2016-06-17] MEDS ORDERED: ONDANSETRON 4 MG/2 ML VIAL ONE (07:40)
[2016-06-17] MEDS ORDERED: LIDOCAINE 2% 5 ML SDV ONE (07:41)
[2016-06-17] MEDS ORDERED: PROPOFOL/EMULSION 500 MG/50 ML BOTTLE IV ONE (07:41)
[2016-06-17] MEDS ORDERED: PHENYLEPHRINE 10 MG/ML SDV ONE (07:47)
[2016-06-17] MEDS ORDERED: ACETAMINOPHEN 325 MG TAB PO PRN (07:51)
[2016-06-17] MEDS ORDERED: ONDANSETRON DISINTEGRATING 4 MG TAB PO PRN (07:51)
[2016-06-17] MEDS ORDERED: POLYETHYLENE GLYCOL 3350 17 GM PKT PO PRN (07:51)
[2016-06-17] MEDS ORDERED: diphenhydrAMINE 25 MG CAP PO PRN (07:51)
[2016-06-17] MEDS ORDERED: LACTULOSE 20 GM/30 ML UDCUP PO PRN (07:51)
[2016-06-17] MEDS ORDERED: HYDROCODONE/APAP 10/325 TAB PO PRN (07:51)
[2016-06-17] MEDS ORDERED: ONDANSETRON 4 MG/2 ML VIAL IVP PRN (07:51)
[2016-06-17] MEDS ORDERED: MAGNESIUM HYDROXIDE 30 ML UDCUP PO PRN (07:51)
--- NOTE | 2016-06-17 07:51 | NEUSURGPN ---
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 Reeves this am and taken out of traction prior to going to the OR. Patient's son at bedside as well Subjective: family at bedside, patient speaks no Albanian, son translates. Per RN patient has a lot of secretions but other than that no events overnight. Objective: NAD, in traction bed and collar in good position follows commands no facial droop MAEx4, antigravity Launch Manager 3/5 DF/PF 3/5 Sensation intact Catheter Insertion Date: 06/14/16 - Physician Discussed Patient with Dr.: Reeves Patient Seen by : Leandro Neurosurgery Physical Exam - Vitals, I&O, Labs I and O 06/16/16 06/17/16 06/18/16 05:59 05:59 05:59 Intake Total 2830 2395 Output Total 1775 950 Balance 1055 1445 Intake: Oral (ml) 860 100 IV Infused (ml) 1970 2295 Dexmedetomidine HCl 400 120 30 mcg In Ns 100 ml @ Titrate IV CONT ANH Rx#: [id number] NS W/ 20 KCl/L 1,000 ml @ 900 75 mls/hr IV CONT ANH Rx #:[id number] Ns 1,000 ml @ 75 mls/hr 950 1725 IV CONT ANH Rx#: [id number] niCARdipine/NACL 200 ml @ 540 Titrate IV CONT ANH Rx#: [id number] Output: Urine (ml) 1775 950 Catheter 1775 950 Other: Number of Stools Catheter 1 Vital Signs Temp Pulse Resp BP Pulse Ox 36.3 C 104 H 27 H 140/76 H 93 06/17/16 05:00 06/17/16 07:00 06/17/16 07:00 06/17/16 07:00 06/17/16 07:00 Laboratory Results 06/17/16 00:00 06/17/16 04:12 ICD10 Worksheet Patient Problems: Problems Problem Status Onset Spinal stenosis in cervical region Acute <Los Reeves - Last Filed: 06/20/16 20:18> Assessment/Plan: NEUROSURGERY ATTENDING NOTE Family and patient understand the very seriousness of the surgery and possible outcomes, which could include paralysis, stroke, , pneumonia, etc. They are willing to proceed given his worsening overall condition. Neurosurgery Physical Exam - Vitals, I&O, Labs I and O 06/19/16 06/20/16 06/21/16 05:59 05:59 05:59 Intake Total 2093 1337.8 714.5 Output Total 1802 2405 510 Balance 291 -1067.2 204.5 Weight 52.3 kg Intake: Oral (ml) 0 IV Intake (ml) 1100 160 398 IV Infused (ml) 993 1177.8 66.5 Dexmedetomidine HCl 400 40 127.7 43 mcg In Ns 100 ml @ Titrate IV CONT ANH Rx#: [id number] Diltiazem 125 mg In D5w 61.8 23 125 ml @ Per Protocol IV CONT ANH Rx#:[id number] NS W/ 20 KCl/L 1,000 ml @ 889 928 75 mls/hr IV CONT ANH Rx #:[id number] Propofol/Emulsion 100 ml 32 40 @ Per Protocol IV CONT ANH Rx#:[id number] fentaNYL/NACL 100 ml @ 32 20.3 0.5 Per Protocol IV CONT ANH Rx#:[id number] Tube Feeding (ml) 50 Tube Flush (ml) 200 Output: Urine (ml) 1800 2405 510 Catheter 1800 2405 510 Wound Drainage (ml) 2 Back Fabien Mason 2 Other: Number of Stools Catheter 0 1 1 Microbiology 06/17/16 15:00 - Final Sputum, Induced/Suctioned Sputum Culture - Final Staphylococcus Aureus Vital Signs Temp Pulse Resp BP Pulse Ox 36.9 C 83 20 158/62 H 100 06/20/16 16:00 06/20/16 18:00 06/20/16 18:00 06/20/16 18:00 06/20/16 18:00 Laboratory Results 06/20/16 04:35 06/20/16 04:35
[2016-06-17] MEDS ORDERED: oxyCODONE IR 5 MG TAB PO PRN (08:00)
[2016-06-17] MEDS ORDERED: NS W/ 20 KCl/L 1,000 ML IV SCH (08:00)
--- NOTE | 2016-06-17 08:09 | POSTOPPROG ---
Post Op Note Date of Operation: 06/17/16 Surgeon: Los Reeves Supervisor Education: Christie Castro PA-C Anesthesia: GET(General Endotracheal) Pre-op Diagnosis: Cervical myelopathy, stenosis Post-op Diagnosis: same Procedure: Sub-occipital craniectomy with C1-C4 lami and PSF Occiput to T1 Inf/Abcess present in the surg proc area at time of surgery?: No Depth: Organ Space Drains: Fabien Mason SOAP Progress Note Assessment/Plan: S: Patient waking up in PACU. Stable. O: NAD, VSS Intubated PERRL,sluggish No droop Hard Cervical Collar in place,neck is soft Incision c/d/i-dressed ELLIE X 1 A/P: 70 yo male sp sub-occipital craniectomy with C1-[id number] and posterior fusion Occiput- T1 -Admit back to ICU- patient extubated but unable to tolerate and was re- intubated -Neuro checks -Postop MRI today -Postop xrays tomorrow -Hard Cervical collar at all times -Advance diet as tolerated -Optimize pain control -Follow medicine recs for BP control and medical issues -DCT: TEDs, SCDs, Lovenox ok to resume on POD #3 -Please call neurosurgery with any changes in neuro or motor exam 06/17/16 15:20 Objective: Vital Signs Temp Pulse Resp BP Pulse Ox 36.3 C 104 H 27 H 140/76 H 93 06/17/16 05:00 06/17/16 07:00 06/17/16 07:00 06/17/16 07:00 06/17/16 07:00 Laboratory Results 06/17/16 00:00 06/17/16 04:12 06/16/16 06/17/16 06/18/16 05:59 05:59 05:59 Intake Total 2830 2395 Output Total 1775 950 Balance 1055 1445 PT 14.4 SEC (12.0-15.0) 06/17/16 00:00 INR 1.13 (0.83-1.16) 06/17/16 00:00
[2016-06-17] MEDS ORDERED: HYDROCORTISONE 100 MG/2 ML VIAL ONE (09:54)
[2016-06-17] MEDS ORDERED: ALBUMIN 5% 250 ML BOTTLE IV ONE (10:50)
[2016-06-17] MEDS ORDERED: PROPOFOL 200 MG/20 ML VIAL ONE (12:08)
--- NOTE | 2016-06-17 13:03 | HOSPPROG ---
Hospitalist Progress Note Assessment/Plan: 70 yo M with hx of RA and severe cervical spinal stenosis with associated inability to ambulate # severe cervical spinal stenosis: with associated cord compression and progressive weakness leading to inability to ambulate, s/p cervical traction and now s/p complicated surgical intervention with posterolateral c4-t1 fusion, lami c1-c4, crani and spinal cord decompression and ORIF c2 fracture (see surgical note for more details, personally reviewed). Post operatively patient remains heavily sedated and unresponsive. Plan per nsg is to remove sedation and eval for responsiveness, then for post op MRI this evening. # aspiration pna: worsening respiratory status overnight last night in setting of pulmonary infiltrates related to RA and more prominent LLL infiltrate thought initially to be atelectasis. Started on invanz. Remains on vent s/p surgery as next # acute hypoxic resp failure: increased o2 needs overnight last night in setting of chronic ILD 2/2 RA, atelectasis from days in traction and aspiration pna as above. Now post op still on vent 2/2 BRUSH WASHER depression in the setting of very diminished responsiveness so far. As above, minimizing sedation, monitoring # htn: intermittently more elevated bp since arrival, prn hydralazine and has required cardene gtt. Presumably related primarily to pain and anxiety while in traction, post op bp has been stable so far # RA: has been severe, continued on leflunomide and prednisone, has diffuse pulmonary infiltrates 2/2 RA associated ILD # diastolic heart failure: with relatively preserved EF at 55%, does not have e/ o decompensation, will be cautious with fluids perioperatively # IP status, high risk Care plan reviewed with Dr. Fenton and multidisciplinary care team on rounds. Further hx obtained from patients son and daughter present at bedside Subjective: patient to OR this morning for complicated cervical fusion/lami/ spinal decompression, since coming back from OR he is sedated but not responsive to pain and still on vent Objective: Vital Signs Temp Pulse Resp BP Pulse Ox 36.3 C 104 H 27 H 140/76 H 93 06/17/16 05:00 06/17/16 07:00 06/17/16 07:00 06/17/16 07:00 06/17/16 07:00 Laboratory Results 06/17/16 00:00 06/17/16 04:12 06/16/16 06/17/16 06/18/16 05:59 05:59 05:59 Intake Total 2830 2395 Output Total 1775 950 Balance 1055 1445 PT 14.4 SEC (12.0-15.0) 06/17/16 00:00 INR 1.13 (0.83-1.16) 06/17/16 00:00 sedated intubated anicteric ett tachy distant no mrg dec at bases to ant exam soft nt nd no cce warm dry well perfused not responding to pain, evidence of atrophy bue ICD10 Worksheet Patient Problems: Problems Problem Status Onset Spinal stenosis in cervical region Acute - ICD10 Problem Qualifiers (1) Spinal stenosis in cervical region
[2016-06-17] MEDS ORDERED: METOPROLOL TARTRATE 5 MG/5 ML INJ ONE (13:38)
[2016-06-17] MEDS: ATORVASTATIN CALCIUM 40 MG TAB PO SCH (13:47)
[2016-06-17] MEDS: LEFLUNOMIDE 20 MG TAB PO SCH (13:48)
[2016-06-17] MEDS: GABAPENTIN 300 MG CAP PO SCH ×2 (13:48)
[2016-06-17] MEDS: ERTAPENEM 1 GM in NS 100 ML IV SCH (13:48)
[2016-06-17] MEDS: FAMOTIDINE 20 MG TAB PO SCH (13:48)
[2016-06-17] MEDS: SENNOSIDES/DOCUSATE SODIUM TAB PO SCH (13:49)
[2016-06-17] MEDS: PANTOPRAZOLE SODIUM 40 MG TAB PO SCH (13:49)
[2016-06-17] MEDS ORDERED: fentaNYL/NACL 100 ML IV SCH (14:00)
[2016-06-17] MEDS ORDERED: PROPOFOL/EMULSION 100 ML IV SCH (14:00)
--- NOTE | 2016-06-17 14:57 | PDINTPN ---
Substance Abuse Services Director Progress Note Assessment/Plan: Assessment/Plan: * Chronic Neck pain * Spinal stenosis with cord compression * S/P Suboccipital craniectomy with C1-C3 lami and PSF * Resp failure-stable on vent . Possible Upper airway swelling per anesth. -assess for extubation in am -consider tube occlusion test * LLL Pna-on invanz * RA * Chronic pain * Sedation-adequate on propofol and fentanyl * VTE proph-hold anticoag for now * Stress ulcer proph 35 min of critical care time spent with patient Case discussed with surgeon, RT and nursing Subjective: Sedated Objective: Vital Signs Temp Pulse Resp BP Pulse Ox 36.3 C 104 H 27 H 140/76 H 93 06/17/16 05:00 06/17/16 07:00 06/17/16 07:00 06/17/16 07:00 06/17/16 07:00 Laboratory Results 06/17/16 00:00 06/17/16 04:12 06/16/16 06/17/16 06/18/16 05:59 05:59 05:59 Intake Total 2830 2395 Output Total 1775 950 Balance 1055 1445 PT 14.4 SEC (12.0-15.0) 06/17/16 00:00 INR 1.13 (0.83-1.16) 06/17/16 00:00 Laboratory Results 06/17/16 00:00 06/17/16 04:12 06/17/16 04:50 Patient Temperature 37.0 DEGREES DEGREES pCO2 31 mmHg L mmHg (34 - 38) pO2 72 mmHg mmHg (65 - 75) Total CO2 18 mEq/L L mEq/L (23 - 27) ABG pH 7.35 (7.35 - 7.45) ABG O2 Saturation 92 % % (92 - 95) ABG Base Excess -7.4 mEq/L L mEq/L (-2.5 - 2.5) ABG Lactic Acid 1.9 mmol/L H mmol/L (0.5 - 1.6) Total O2 Concentration 6.0 LITERS LITERS - Time Spent With Patient Time Spent With Patient: 35 Physical Exam - Physical Exam General Appearance: other (sedated), No alert EENT: PERRL/EOMI, normal ENT inspection, ET tube Neck: other (c-collar) Respiratory: crackles (few), No respiratory distress, No wheezing, No prolonged expiration Cardiac/Chest: normal peripheral pulses, regular rate, rhythm, systolic murmur Abdomen: normal bowel sounds, non-tender, soft Male Genitalia: deferred Rectal: deferred Skin: normal color, warm/dry Neuro/Psych: other (sedated) ICD10 Worksheet Patient Problems: Problems Problem Status Onset Spinal stenosis in cervical region Acute
--- NOTE | 2016-06-17 15:26 | GOP ---
[f rep st] OPERATIVE REPORT DATE OF OPERATION: 06/17/2016 SURGEON: Los Reeves MD LOST AND FOUND CLERK: Christie Castro, PAC (first leveler). ANESTHESIA: General. PREOPERATIVE DIAGNOSIS: 1. 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 2. Rapid progressive myelopathy and paraparesis. 3. Rheumatoid Arthritis and chronic steroids use POSTOPERATIVE DIAGNOSIS: 1. 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 2. Rapid progressive myelopathy and paraparesis. 3. Rheumatoid Arthritis and chronic steroids use PROCEDURE PERFORMED: 1. Posterior arthrodesis with approach to the occiput C1, C2, C3, C4, C5, C6, C7, T1. 2. Posterolateral fusion with pedicle screw placement into the right C4, bilateral C5, C6, C7, and T1 levels from Sush.io system with right- sided lateral mass placement into C2, left pars pedicle screw placement into C2 , and occipital plate with 3 screws. 3. Decompressive laminectomy with bilateral mesial facetectomies, C1, C2, C3, C4. 4. Suboccipital craniectomy with spinal cord decompression. 5. Posterolateral fusion bilaterally from occiput C1, C2, C3, C4, C5, C6, C7, T1. 6. Open reduction and internal fixation of C2 fracture. 7. Use of intraoperative 3D Stealth navigation. 8. Use of intraoperative fluoroscopy, less than 1 hour physician time. 9. Use of neuromonitoring. FINDINGS: per imaging SPECIMENS: None. ESTIMATED BLOOD LOSS: 250 mL. INDICATIONS: Mr. Figueroa is a 70-year-old gentleman with multiple medical comorbidities, including rheumatoid arthritis, for which he takes prednisone. The patient apparently had a previous cervical fracture for which he was treated with a cervical collar and was doing otherwise quite well, but noted rapid onset of myelopathy with weakness of the bilateral upper and lower extremities. Imaging demonstrated basilar invagination with an odontoid within the foramen magnum as well as C2 pars fractures bilaterally and severe stenosis occiput to C4 with moderate stenosis C5 through C7. After discussion of the risks, benefits, and alternatives, we decided to proceed forth with surgery as described above. The patient underwent cervical traction for a few days, however, a CT scan demonstrated that his occiput C1-C2 and C2-C3 levels were actually fused. At this point, we decided to reduce his C2-C3 stenosis. He presents now for surgical intervention. He and his family understand the very serious nature of the surgery and risks and wish to proceed. DESCRIPTION OF PROCEDURE: The patient was brought to the operating theater in a cervical collar. He underwent intubation with cervical spine precautions and placement of the appropriate lines by Anesthesia. Baseline neuromonitoring was obtained. He was then placed in the [place] headholder device and turned very carefully prone onto the standard table at which point his head was affixed to the table. Using lateral fluoroscopy, we then completed a reduction of his C2- C3 fracture as best we could and secured him to the table in that manner. Neuromonitoring was not changed at that point. At this point, the posterior occipital-cervical area was prepped and draped in the usual sterile surgical fashion. A time-out was completed per protocol, and the patient received antibiotics within 1 hour of incision. He also received a stress dose of steroids. We maintained his MAPS above 85 the entire case for spinal cord perfusion. The occipital cervical midline incision was infiltrated with Marcaine with epinephrine and taken down with the scalpel blade. Using the monopolar, the incision was then taken down the midline through the avascular plane, and we exposed the occiput C1, C2, C3, C4, C5, C6, C7, T1 levels. We carried the subperiosteal dissection out to the edges of the lateral masses bilaterally. He was noted to have a loose C2-C3 level, which was consistent with his bilateral pars defect. THe anatomy was very aberrant at the C1-C2-C3 levels as expected on his CT scans. At this point, using a combination of the bur tip on the drill bit, Leksell rongeur, and Kerrison punches, we completed a decompressive laminectomy at C1, C2, C3, C4, and passed this bone off the field. We then completed a suboccipital craniectomy, and passed this bone off the field. He had a tethering lesion within this area at the occipitocervical junction, which we then removed as best we could with pickups and a knife. There was still evidence of some indentation of the dura, however, no obvious bone fragments that were causing any further stenosis. At this point, we attached the 3D Stealth navigation clamp and completed 3D Stealth navigation spin with the O-arm. Using 3D Stealth navigation, we placed the sdv pilot/navigator/dds operator holes for the bilateral pedicle screws into T1, C7, C6, C5, and right- sided C4. We were not able to place a sdv pilot/navigator/dds operator hole in the left C4 or C3 or C1 secondary to the patient's abnormal anatomy and location of his vertebral arteries and nerves. At this point, I then placed a right-sided C2 lateral mass screw and a left-sided C2 pars pedicle screw after drilling the sdv pilot/navigator/dds operator holes. All holes were manually palpated with no evidence of any cortical breaches. We then placed 3.5 mm x 26 mm screw on the left at C2, 3.5 x 12 mm screw on the right at C2, a 3.5 x 20 mm screw on the right at C4, 3.5 x 24 mm screws bilaterally at C5, C6, and left C7, and a 3.5 x 20 mm screw on the right at C7 and bilaterally at T1. Another 3D [employer] Radioalth navigation spin demonstrated excellent placement of the hardware. At this point, we secured a small occipital plate from the [employer] system with two 8 mm bicortical screws and one 6 mm bicortical screw after drilling and tapping the holes. We then bent the rods and decorticated the bone bilaterally between the occiput and T1. We irrigated copiously with bacitracin irrigation. We placed the rods into the heads of screws bilaterally between the occiput and T1 and secured them down with cap screws which were then tightened according to the rag shredder's setting. We placed morselized autograft and allograft bilaterally between the occiput and T1 for the posterolateral fusion. AP and lateral x-rays demonstrated good placement of the hardware. A drain was left in the subfascial space, and 1 cross connector was then placed as well. The wound was then closed in multiple layers using Vicryl sutures to the deep layers and a running nylon stitch for the skin. The patient's wounds were dressed sterilely. He was flipped supine onto the transfer cart, and was still asleep at the time of this dictation. There were no complications and no noted changes on neuromonitoring throughout the procedure. COMPLICATIONS: None. /[id number]/MODL MTDD
[2016-06-17 15:53] LABS: BICARBONATE 18 mEq/L (22-26); MEASURED OXYGEN SATURATION 96 % (92-95); PCO2 38 mmHg (34-38); PO2 103 mmHg (65-75); TCO2 19 mEq/L (23-27)
[2016-06-17 15:56] LABS: END TIDAL CO2 32; P/F RATIO 172 RATIO; PATIENT RATE 12; PRESSURE SUPPORT 7; SIMV YES
[2016-06-17 15:57] LABS: O2 CONCENTRATIION 60 % (0-100)
[2016-06-17] MEDS ORDERED: methylPREDNISolone SOD SUCC 40 MG/ML VIAL IVP ONE (21:30)
[2016-06-17] MEDS: CHLORHEXIDINE GLUCONATE 15 ML UDL PO SCH (21:53)
[2016-06-17] MEDS: FAMOTIDINE 20 MG/NACL 50 ML IV SCH (21:53)
[2016-06-18 06:18] LABS: BICARBONATE 20 mEq/L (22-26); MEASURED OXYGEN SATURATION 97 % (92-95); PCO2 36 mmHg (34-38); PO2 111 mmHg (65-75); TCO2 21 mEq/L (23-27)
[2016-06-18 06:19] LABS: O2 CONCENTRATIION 40 % (0-100); P/F RATIO 278 RATIO; SIMV YES
[2016-06-18 06:20] LABS: PATIENT RATE 16; PIP 14; PRESSURE SUPPORT 7
--- NOTE | 2016-06-18 09:07 | NEUSURGPN ---
Assessment/Plan: A/P: 70 yo male sp sub-occipital craniectomy with C1-[id number] and posterior fusion Occiput- T1 POD1 -Admit back to ICU- patient extubated but unable to tolerate and was re- intubated. Extubate as tolerated. -Neuro checks -Postop MRI demonstrates postoperative changes with decompression of upper cervical cord, there is evidence of a prior cerebellar stroke noted. -Postop xrays once extubated -Hard Cervical collar at all times -Advance diet as tolerated -Optimize pain control -Follow medicine recs for BP control and medical issues -DCT: TEDs, SCDs, Lovenox ok to resume on POD #3 -Please call neurosurgery with any changes in neuro or motor exam Subjective: Unable to obtain Objective: NAD, Moves spontaneously. Incisional dressing c/d/i. Catheter Insertion Date: 06/14/16 - Physician Patient Seen by : Leandro Neurosurgery Physical Exam - Vitals, I&O, Labs I and O 06/17/16 06/18/16 06/19/16 05:59 05:59 05:59 Intake Total 2395 1108.8 Output Total 950 930 Balance 1445 178.8 Intake: Oral (ml) 100 IV Infused (ml) 2295 1108.8 Dexmedetomidine HCl 400 30 mcg In Ns 100 ml @ Titrate IV CONT ANH Rx#: [id number] Ns 1,000 ml @ 75 mls/hr 1725 1032 IV CONT ANH Rx#: [id number] Propofol/Emulsion 100 ml 47.9 @ Per Protocol IV CONT ANH Rx#:[id number] fentaNYL/NACL 100 ml @ 28.9 Per Protocol IV CONT ANH Rx#:[id number] niCARdipine/NACL 200 ml @ 540 Titrate IV CONT ANH Rx#: [id number] Output: Urine (ml) 950 900 Catheter 950 900 Wound Drainage (ml) 30 Back Fabien Mason 30 Other: Number of Stools Catheter 1 Microbiology 06/17/16 15:00 - Final Sputum, Induced/Suctioned Vital Signs Temp Pulse Resp BP Pulse Ox 36.6 C 113 H 14 140/58 H 100 06/18/16 08:00 06/18/16 09:00 06/18/16 09:00 06/18/16 09:00 06/18/16 09:00 Laboratory Results 06/17/16 00:00 06/17/16 04:12 ICD10 Worksheet Patient Problems: Problems Problem Status Onset Spinal stenosis in cervical region Acute
[2016-06-18] MEDS: ATORVASTATIN CALCIUM 40 MG TAB PO SCH (09:32)
[2016-06-18] MEDS: GABAPENTIN 300 MG CAP PO SCH ×2 (09:32)
[2016-06-18] MEDS: LEFLUNOMIDE 20 MG TAB PO SCH (09:33)
[2016-06-18] MEDS: CHLORHEXIDINE GLUCONATE 15 ML UDL PO SCH ×2 (09:37→22:57)
[2016-06-18] MEDS: FAMOTIDINE 20 MG/NACL 50 ML IV SCH ×2 (09:37→22:52)
[2016-06-18] MEDS: ERTAPENEM 1 GM in NS 100 ML IV SCH (09:37)
[2016-06-18] MEDS: METOPROLOL TARTRATE 5 MG/5 ML INJ IVP PRN ×2 (11:19→17:04)
--- NOTE | 2016-06-18 11:19 | CPEKG ---
Heart Rate: 138 RR Interval: 435 P-R Interval: 175 QRSD Interval: 74 QT Interval: 308 QTC Interval: 467 P [place]: 88 QRS [place]: 66 T Wave Rome: 255 EKG Severity - ABNORMAL ECG - EKG Impression: ATRIAL FIBRILLATION, V-RATE 0-0 EKG Impression: rapid Ventricular Response EKG Impression: NONSPECIFIC REPOL ABNORMALITY, DIFFUSE LEADS Electronically Signed By: Jackson Sanchez 18-Jun-2016 14:27:06
[2016-06-18] MEDS: SENNOSIDES/DOCUSATE SODIUM TAB PO SCH (12:31)
[2016-06-18] MEDS: DIAZEPAM 10 MG/2 ML SYR IVP PRN ×2 (13:32→19:58)
[2016-06-18] MEDS: HYDROCORTISONE 100 MG/2 ML VIAL IVP SCH ×2 (14:15→22:52)
--- NOTE | 2016-06-18 15:07 | PDINTPN ---
Service Writer Advisor Progress Note Assessment/Plan: Assessment/plan: 70 M with chronic TRA on chronic steroids admitted for cervical spine surgery with cord compression, left on vent after reported difficult intubation and significant edema requiring small ETT. He has been slow to wake, though support has been minimal. 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 He has also had issues with excess sedation. * s/p C1-4 laminectomy with PSF. Initially extubated but re-intubated. Weaning well on minimal support, but leak test today showed <50% return of TV (though some leaked audible). Given high risk for re-intubation with compromised neck, will hold on extubation today, but possible in AM. Cord decompressed and prior cerebellar stroke noted by neurosurgery. Moves upper extremities spontaneously, though not to command. * Altered mental status- likely related to medications. Holding most meds for now and use propofol overnight for sedation as needed, unless obvious pain requirement. try to hold narcotics. * PNA- LLL on Invanz at the moment and stable. * Respiratory failure with hypoxia 2/2 above; remains ventilator dependent * RA- on chronic steroids and BP high today. No need for stress dose steroids at this time * HTN- persistently high and not clearly responsive to pain meds. Trial low dose beta nicolas today. * Critical care time 45 minutes at bedside, discussing on rounds, and with RN, RT , and son Subjective: Somnolent. Not following commands Objective: Vital Signs Temp Pulse Resp BP Pulse Ox 37.4 C 125 H 24 H 146/106 H 98 06/18/16 13:00 06/18/16 14:00 06/18/16 14:00 06/18/16 14:00 06/18/16 14:00 Microbiology 06/17/16 15:00 - Final Sputum, Induced/Suctioned Laboratory Results 06/17/16 00:00 06/17/16 04:12 06/17/16 06/18/16 06/19/16 05:59 05:59 05:59 Intake Total 2395 1108.8 Output Total 950 930 Balance 1445 178.8 PT 14.4 SEC (12.0-15.0) 06/17/16 00:00 INR 1.13 (0.83-1.16) 06/17/16 00:00 Physical Exam - Physical Exam General Appearance: no apparent distress, obtunded EENT: PERRL/EOMI, other (hard C collar) Neck: limited range of motion Respiratory: lungs clear, normal breath sounds, other (on vent), No respiratory distress Cardiac/Chest: regular rate, rhythm, edema Abdomen: non-tender, soft, No distended Skin: normal color, warm/dry Neuro/Psych: other (somnolent on vent) ICD10 Worksheet Patient Problems: Problems Problem Status Onset Spinal stenosis in cervical region Acute
--- NOTE | 2016-06-18 19:20 | HOSPPROG ---
Hospitalist Progress Note Assessment/Plan: * Severe cervical stenosis with cord compression s/p C1-C4 laminectomy * Acute respiratory failure -remains on vent - possible wean/extubation soon * Metabolic encephalopathy * Tachycardia - looks like afib but when slow down more c/w sinus with PAC -add beta-nicolas * Aspiration PNA -Invanz * RA - chronic steroids -stress dose * RA associated ILD * Cerebellar CVA - "evolving" -restart Plavix when okay per neurosurgery -no definite evidence for afib -check lipids * PVD/stent Subjective: Intubated, mental status decreses dramatically after IV narcs Objective: Vital Signs Temp Pulse Resp BP Pulse Ox 37.2 C 88 14 159/89 H 99 06/18/16 17:00 06/18/16 18:00 06/18/16 18:00 06/18/16 18:00 06/18/16 18:00 Microbiology 06/17/16 15:00 - Final Sputum, Induced/Suctioned Laboratory Results 06/17/16 00:00 06/17/16 04:12 06/17/16 06/18/16 06/19/16 05:59 05:59 05:59 Intake Total 2395 1108.8 1119 Output Total 040 102 3753 Balance 1445 178.8 -183 PT 14.4 SEC (12.0-15.0) 06/17/16 00:00 INR 1.13 (0.83-1.16) 06/17/16 00:00 EKG viewed, my personal interpretation is: possible afib tele strips after 5mg IV metoprolol - sinus with PAC d[facility] "[facility]" cerebellar stroke - Physical Exam Constitutional: appears nourished, uncomfortable, No chronically ill appearing, No obese Cardiovascular: no murmur, rub, or gallop, irregularly irregular, tachycardia, edema Respiratory: no respiratory distress, no rales or rhonchi, clear to auscultation Gastrointestinal: normoactive bowel sounds, soft, non-tender abdomen, no palpable masses Skin: no rashes or abrasions, no fluctuance, no induration Neurologic: No AAOx3 Psychiatric: encephalopathic, anxious, agitated, No interacting appropriately ICD10 Worksheet Patient Problems: Problems Problem Status Onset Spinal stenosis in cervical region Acute
[2016-06-18] MEDS ORDERED: methylPREDNISolone SOD SUCC 40 MG/ML VIAL IVP ONE (21:30)
[2016-06-18] MEDS: DEXMEDETOMIDINE HCL 400 MCG in NS 100 ML IV SCH ×2 (22:30→22:53)
[2016-06-19 05:29] LABS: BASE EXCESS -3.6 mEq/L (-2.5-2.5); BICARBONATE 21 mEq/L (22-26); MEASURED OXYGEN SATURATION 98 % (92-95); PCO2 35 mmHg (34-38); PO2 129 mmHg (65-75); TCO2 22 mEq/L (23-27)
[2016-06-19 05:30] LABS: CPAP YES; END TIDAL CO2 28; O2 CONCENTRATIION 40 % (0-100); P/F RATIO 323 RATIO; PATIENT RATE 20; PRESSURE SUPPORT 10
[2016-06-19] MEDS: HYDROCORTISONE 100 MG/2 ML VIAL IVP SCH ×3 (05:40→23:43)
[2016-06-19 06:11] LABS: ANION GAP 9 mEq/L (8-16); CALCIUM 7.6 mg/dL (8.5-10.4); CARBON DIOXIDE 20 mEq/l (22-31); CHLORIDE 116 mEq/L (97-110); CHOLESTEROL 64 mg/dL (140-220); CHOLESTEROL/HDL RATIO 3.76 RATIO (1.00-4.97); GLOMERULAR FILTRATION RATE > 60; GLUCOSE 100 mg/dL (70-100); HIGH DENSITY LIPOPROTEIN 17 mg/dL (40-65); LDL/HDL RATIO 0.76 RATIO (1.00-3.64); LOW DENSITY LIPOPROTEIN 13 mg/dL (80-100); NON-HIGH DENSITY LIPOPROTEIN 47 mg/dL (90-129); POTASSIUM 4.2 mEq/L (3.5-5.2); SODIUM 145 mEq/L (134-144); TRIGLYCERIDE 172 mg/dL (40-150); VERY LOW DENSITY LIPOPROTEINS 34 mg/dL (8-25)
[2016-06-19 06:34] LABS: % IMMATURE GRANULYOCYTES 0.4 % (0.0-1.1); ABSOLUTE IMMATURE GRANULOCYTES 0.01 10^3/uL (0.00-0.10); ADD DIFF? NO; ADD MORPH? YES; ADD SCAN? NO; ATYPICAL LYMPHOCYTE FLAG 10 (0-99); FRAGMENT RBC FLAG 0 (0-99); HEMATOCRIT 21.2 % (40.0-51.0); LEFT SHIFT FLG 50 (0-99); LIPEMIA HEMOLYSIS FLAG 80 (0-99); MEAN CELL HEMOGLOBIN 26.5 pg (27.9-34.1); MEAN CELL HEMOGLOBIN CONCENTR. 32.1 g/dL (32.4-36.7); MEAN CELL VOLUME 82.5 fL (81.5-99.8); MEAN PLATELET VOLUME 10.9 fL (8.7-11.7); PLATELET CLUMPS FLAG 0 (0-99); PLATELET COUNT 74 10^3/uL (150-400); RED BLOOD CELL COUNT 2.57 10^6/uL (4.40-6.38); RED CELL DISTRIBUTION WIDTH 16.3 % (11.5-15.2)
[2016-06-19 06:37] LABS: HEMOGLOBIN 6.8 g/dL (13.7-17.5)
[2016-06-19 07:29] LABS: ELLIPTOCYTES 1+; PLATELET ESTIMATE DECREASED (ADEQ); POLYCHROMASIA 1+
--- NOTE | 2016-06-19 07:34 | NEUSURGPN ---
Assessment/Plan: A/P: 70 yo male sp sub-occipital craniectomy with C1-[id number] and posterior fusion Occiput- T1 POD2 -Admit back to ICU- patient extubated but unable to tolerate and was re- intubated. Extubate as tolerated. Likely today per notes. -Neuro checks -Postop MRI demonstrates postoperative changes with decompression of upper cervical cord, there is evidence of a prior cerebellar stroke noted. -Postop xrays once extubated -DC ELLIE drain -Hard Cervical collar at all times -Advance diet as tolerated once extubated -Optimize pain control - minimize narcotics -Follow medicine recs for BP control and medical issues -DCT: TEDs, SCDs, Lovenox ok to resume on POD #3, ASA to resume POD#7 -Please call neurosurgery with any changes in neuro or motor exam -Pt seen with Dr Reeves this AM Subjective: Intubated and sedated, no events overnight per RN. Family at bedside. Objective: Intubated and sedated C collar on MAEx4 - not to command ELLIE in place Dressing cdi Urinary Catheter in Place: Yes Urinary Catheter Indication: Other (Use Comment) (intubated and sedated) Catheter Insertion Date: 06/14/16 - Physician Discussed Patient with : Leandro Patient Seen by : Leandro Neurosurgery Physical Exam - Vitals, I&O, Labs I and O 06/18/16 06/19/16 06/20/16 05:59 05:59 05:59 Intake Total 1108.8 2093 Output Total 930 1802 Balance 178.8 291 Intake: IV Intake (ml) 1100 IV Infused (ml) 1108.8 993 Dexmedetomidine HCl 400 40 mcg In Ns 100 ml @ Titrate IV CONT ANH Rx#: [id number] NS W/ 20 KCl/L 1,000 ml @ 889 75 mls/hr IV CONT ANH Rx #:[id number] Ns 1,000 ml @ 75 mls/hr 1032 IV CONT ANH Rx#: [id number] Propofol/Emulsion 100 ml 47.9 32 @ Per Protocol IV CONT ANH Rx#:[id number] fentaNYL/NACL 100 ml @ 28.9 32 Per Protocol IV CONT ANH Rx#:[id number] Output: Urine (ml) 900 1800 Catheter 900 1800 Wound Drainage (ml) 30 2 Back Fabien Mason 30 2 Other: Number of Stools Catheter 0 Microbiology 06/17/16 15:00 - Final Sputum, Induced/Suctioned Vital Signs Temp Pulse Resp BP Pulse Ox 36.7 C 64 15 112/56 L 100 06/19/16 04:00 06/19/16 06:00 06/19/16 06:00 06/19/16 06:00 06/19/16 06:00 Laboratory Results 06/19/16 06:26 06/19/16 05:30 ICD10 Worksheet Patient Problems: Problems Problem Status Onset Spinal stenosis in cervical region Acute
[2016-06-19] MEDS: CHLORHEXIDINE GLUCONATE 15 ML UDL PO SCH ×2 (08:12→23:57)
[2016-06-19] MEDS: ERTAPENEM 1 GM in NS 100 ML IV SCH (08:13)
[2016-06-19] MEDS: FAMOTIDINE 20 MG/NACL 50 ML IV SCH ×2 (08:13→23:57)
[2016-06-19] MEDS: GABAPENTIN 300 MG CAP PO SCH ×3 (08:13→23:34)
[2016-06-19 08:15] LABS: HEMATOCRIT 27.9 % (40.0-51.0); HEMOGLOBIN 8.8 g/dL (13.7-17.5); MEAN CELL HEMOGLOBIN 26.3 pg (27.9-34.1); MEAN CELL HEMOGLOBIN CONCENTR. 31.5 g/dL (32.4-36.7); MEAN CELL VOLUME 83.5 fL (81.5-99.8); RED BLOOD CELL COUNT 3.34 10^6/uL (4.40-6.38); RED CELL DISTRIBUTION WIDTH 16.2 % (11.5-15.2)
[2016-06-19] MEDS: METOPROLOL TARTRATE 5 MG/5 ML INJ IVP PRN (09:14)
--- NOTE | 2016-06-19 09:42 | PDINTPN ---
Telephone Operator Progress Note Assessment/Plan: Assessment/plan: 70 M with chronic TRA on chronic steroids admitted for cervical spine surgery with cord compression, left on vent after reported difficult intubation and significant edema requiring small ETT. He has been slow to wake, though support has been minimal. 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 He has also had issues with excess sedation. * s/p C1-4 laminectomy with PSF. Initially extubated but re-intubated. Given high risk for re-intubation with compromised neck, extubation held 06/18. Looks much better today with excellent leak test. Planning extubation with glide scope nearby * Altered mental status- likely related to medications. Holding most meds for now and use propofol overnight for sedation as needed, unless obvious pain requirement. try to hold narcotics. Less sedated on Precedex * PNA- LLL on Invanz at the moment with decreased wbc today. * Respiratory failure with hypoxia 2/2 above; remains ventilator dependent and high risk, but should extubate. Can consider bipap if necessary post extubation. * RA- on chronic steroids and BP high today. Startewd on hydrocortisone overnight since unable to take po and no OG/NGT. hopefully will extubate and resume prednisone. No adverse events reported. * HTN- persistently high and not clearly responsive to pain meds. Improved with metoprolol. * Afib- on yesterday's EKG- rate dropped to 60's with normal BP and appears to be in NSR now. Continue with beta-nicolas as tolerated. * Critical care time 35 minutes at bedside, discussing on rounds, and with RN, RT , and son 06/19/16 09:34 Subjective: much more awake today and follows simple commands for his son at bedside Objective: Vital Signs Temp Pulse Resp BP Pulse Ox 36.7 C 92 16 172/80 H 100 06/19/16 08:00 06/19/16 09:14 06/19/16 09:00 06/19/16 09:14 06/19/16 09:00 Microbiology 06/17/16 15:00 - Final Sputum, Induced/Suctioned Laboratory Results 06/19/16 08:00 06/19/16 05:30 06/18/16 06/19/16 06/20/16 05:59 05:59 05:59 Intake Total 1108.8 2093 Output Total 930 1802 Balance 178.8 291 PT 14.4 SEC (12.0-15.0) 06/17/16 00:00 INR 1.13 (0.83-1.16) 06/17/16 00:00 Physical Exam - Physical Exam General Appearance: other (awake, eyes open and follows simple commands for son) EENT: PERRL/EOMI, other (hard C-collar in place) Neck: limited range of motion Respiratory: lungs clear, normal breath sounds, No respiratory distress Cardiac/Chest: normal peripheral pulses, regular rate, rhythm, No edema Abdomen: normal bowel sounds, non-tender, soft Skin: normal color, warm/dry Lymphatic: no adenopathy Extremities: swelling (left>right wrist), No pedal edema Neuro/Psych: no motor/sensory deficits, alert ICD10 Worksheet Patient Problems: Problems Problem Status Onset Spinal stenosis in cervical region Acute
[2016-06-19] MEDS: hydrALAZINE 20 MG/ML VIAL IVP PRN (10:14)
[2016-06-19] MEDS: DIAZEPAM 10 MG/2 ML SYR IVP PRN (10:49)
[2016-06-19] MEDS ORDERED: LABETALOL HCL 50 MG/10 ML SYR IVP PRN (10:57)
[2016-06-19] MEDS: ATORVASTATIN CALCIUM 40 MG TAB PO SCH (12:11)
[2016-06-19] MEDS: SENNOSIDES/DOCUSATE SODIUM TAB PO SCH ×2 (12:11→23:34)
[2016-06-19] MEDS: fentaNYL 100 MCG/2 ML INJ IVP PRN ×2 (12:34→19:20)
[2016-06-19] MEDS: LEFLUNOMIDE 20 MG TAB PO SCH (13:28)
[2016-06-19] MEDS ORDERED: ENALAPRILAT DIHYDRATE 1.25 MG/ML VIAL IVP PRN (14:32)
[2016-06-19] MEDS: ENOXAPARIN 40 MG/0.4 ML SYR SC SCH (14:54)
[2016-06-19] MEDS: DILTIAZEM 125 MG in D5W 125 ML IV SCH (16:02)
--- NOTE | 2016-06-19 18:45 | HOSPPROG ---
Hospitalist Progress Note Assessment/Plan: * Severe cervical stenosis with cord compression s/p C1-C4 laminectomy * Acute respiratory failure -extubated this am * Metabolic encephalopathy -severe - suspect medication induced -will check MRI brain given cerebellar stroke evident in cerebellum * PAF - now NSR -continue beta-nicolas -consider anti-coagulation when more stable * Aspiration PNA -Invanz * RA - chronic steroids -stress dose * RA associated ILD * Cerebellar CVA -restart Plavix when okay per neurosurgery -consider change to warfarin given probable afib * PVD/stent -Plavix/statin * Uncontrolled HTN -check MRI rule out CVA -IV labetalol Subjective: Not following commands, very somnolent. Objective: Vital Signs Temp Pulse Resp BP Pulse Ox 37.1 C 92 18 150/61 H 99 06/19/16 16:00 06/19/16 17:00 06/19/16 17:00 06/19/16 17:00 06/19/16 17:00 Microbiology 06/17/16 15:00 - Final Sputum, Induced/Suctioned Sputum Culture - Final Staphylococcus Aureus Laboratory Results 06/19/16 08:00 06/19/16 05:30 06/18/16 06/19/16 06/20/16 05:59 05:59 05:59 Intake Total 1108.8 2093 1036 Output Total 930 1802 730 Balance 178.8 291 306 PT 14.4 SEC (12.0-15.0) 06/17/16 00:00 INR 1.13 (0.83-1.16) 06/17/16 00:00 d/w Dr. Sexton ICU rounds - severe HTN management discussed tele reviewed - NSR - Physical Exam Constitutional: no apparent distress, appears nourished, not in pain Cardiovascular: regular rate and rhythym, no murmur, rub, or gallop Respiratory: no respiratory distress, no rales or rhonchi, clear to auscultation Gastrointestinal: normoactive bowel sounds, soft, non-tender abdomen, no palpable masses Skin: no rashes or abrasions, no fluctuance, no induration Neurologic: No AAOx3 Psychiatric: encephalopathic, flat affect, poor insight, poor judgement, poor memory, No interacting appropriately, No agitated ICD10 Worksheet Patient Problems: Problems Problem Status Onset Spinal stenosis in cervical region Acute
[2016-06-19] MEDS ORDERED: FUROSEMIDE 40 MG/4 ML VIAL IVP ONE (20:14)
[2016-06-19] MEDS ORDERED: FUROSEMIDE 40 MG/4 ML VIAL ONE (20:14)
[2016-06-19] MEDS ORDERED: ETOMIDATE 20 MG/10 ML VIAL IV ONE (21:00)
[2016-06-19] MEDS ORDERED: MIDAZOLAM 2 MG/2 ML VIAL IVP ONE (21:00)
[2016-06-19] MEDS ORDERED: fentanYL/NACL/100 ML BAG IV ONE (21:14)
--- NOTE | 2016-06-19 21:22 | PDINTPN ---
Aggregate Conveyor Operator Progress Note Assessment/Plan: Assessment/plan: 70 M with chronic TRA on chronic steroids admitted for cervical spine surgery with cord compression, left on vent after reported difficult intubation and significant edema requiring small ETT. He has been slow to wake, though support has been minimal. 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 He has also had issues with excess sedation. * Respiratory failure with hypoxia 2/2 above. He was extubated postop but required re-intubation due to edema. Today he weaned well and had an excellent leak test so was extubated about 0900 without difficulty. He remained on 2 lpm NC until after his MRI (no changes there) but developed incfreasing O2 requirements and work of breathing. Aggressive NT suctioning was unsuccessful by RT and oral suctioning appeared ineffective at reducing his WOB. I aggressively suctioned with a Yankauer and cleared copious amounts of secretions with improvement in his saturation, but he continued to have a RR > 30 so was re-intubated on the first attempt with a 7.5 ETT using a glidescope. workforce staffing advisor assisted with stabilization of his neck during intubation and no flexion was applied. There was posterior pharyngeal edema, but not excessively. I suspect he will require vent support for the next day or two while we work out an appropriate level of pain control without excess sedation so he can clear secretions. He also was treated with lasix 40 mg to circumvent any pulmonary edema that may have been contributing. Bipap was considered, but ruled out since his MS was marginal and his ability to protect his airway remained compromised. * * s/p C1-4 laminectomy with PSF. Stable from this perspective. * Altered mental status- likely related to medications. Will continue with precedex and fentanyl prn. Consider trying zyprexa and/or haldol for agitation if necessary. * PNA- LLL on Invanz at the moment with decreased wbc earlier today. * RA- on chronic steroids and BP high today. Started on hydrocortisone overnight 06/18-06/19, since unable to take po and no OG/NGT. * HTN- persistently high and not clearly responsive to pain meds. Improved with labetolol but unable to maintain. Started dilt drip for BP and afib/rate control. * Afib- on yesterday's EKG- rate dropped to 60's with normal BP and appears to be in NSR now. As above. * Critical care time 45 minutes at bedside, discussed with family at bedside. Remains critically ill. 06/19/16 09:34 06/19/16 21:14 Subjective: CTSP 2/2 respiiratory distress and increasing O2 requirements, increased WOB Objective: Vital Signs Temp Pulse Resp BP Pulse Ox 37.1 C 88 25 H 148/65 H 95 06/19/16 16:00 06/19/16 19:00 06/19/16 19:00 06/19/16 19:00 06/19/16 19:00 Microbiology 06/17/16 15:00 - Final Sputum, Induced/Suctioned Sputum Culture - Final Staphylococcus Aureus Laboratory Results 06/19/16 08:00 06/19/16 05:30 06/18/16 06/19/16 06/20/16 05:59 05:59 05:59 Intake Total 1108.8 2093 1036 Output Total 930 1802 730 Balance 178.8 291 306 PT 14.4 SEC (12.0-15.0) 06/17/16 00:00 INR 1.13 (0.83-1.16) 06/17/16 00:00 Physical Exam - Physical Exam General Appearance: moderate distress, obtunded EENT: PERRL/EOMI Neck: other (C-collar) Respiratory: accessory muscle use, rhonchi (mild but diffuse), retractions Cardiac/Chest: regular rate, rhythm, edema Abdomen: non-tender, soft, No distended Skin: normal color, warm/dry Extremities: normal range of motion Neuro/Psych: cognition abnormalities ICD10 Worksheet Patient Problems: Problems Problem Status Onset Spinal stenosis in cervical region Acute
[2016-06-19] MEDS ORDERED: ETOMIDATE 40 MG/20 ML INJ ONE (21:31)
[2016-06-19] MEDS: predniSONE 5 MG TAB PO SCH (23:34)
[2016-06-19] MEDS: AMITRIPTYLINE HCL 10 MG TAB PO SCH (23:34)
[2016-06-19] MEDS: METHOCARBAMOL 500 MG in NS 50 ML IV SCH (23:42)
[2016-06-19] MEDS ORDERED: FAMOTIDINE 20 MG/NACL/50 ML BAG IV ONE (23:55)
[2016-06-20 04:45] LABS: % IMMATURE GRANULYOCYTES 0.6 % (0.0-1.1); ABSOLUTE IMMATURE GRANULOCYTES 0.03 10^3/uL (0.00-0.10); ADD DIFF? NO; ADD MORPH? NO; ADD SCAN? NO; ATYPICAL LYMPHOCYTE FLAG 0 (0-99); FRAGMENT RBC FLAG 20 (0-99); HEMATOCRIT 23.3 % (40.0-51.0); HEMOGLOBIN 7.5 g/dL (13.7-17.5); LEFT SHIFT FLG 10 (0-99); LIPEMIA HEMOLYSIS FLAG 80 (0-99); MEAN CELL HEMOGLOBIN 26.3 pg (27.9-34.1); MEAN CELL HEMOGLOBIN CONCENTR. 32.2 g/dL (32.4-36.7); MEAN CELL VOLUME 81.8 fL (81.5-99.8); MEAN PLATELET VOLUME 11.3 fL (8.7-11.7); PLATELET CLUMPS FLAG 0 (0-99); PLATELET COUNT 129 10^3/uL (150-400); RED BLOOD CELL COUNT 2.85 10^6/uL (4.40-6.38); RED CELL DISTRIBUTION WIDTH 16.3 % (11.5-15.2)
[2016-06-20 05:00] LABS: ANION GAP 8 mEq/L (8-16); CALCIUM 8.1 mg/dL (8.5-10.4); CARBON DIOXIDE 23 mEq/l (22-31); CHLORIDE 115 mEq/L (97-110); CREATININE 1.2 mg/dL (0.7-1.3); GLOMERULAR FILTRATION RATE 60; GLUCOSE 122 mg/dL (70-100); POTASSIUM 3.6 mEq/L (3.5-5.2); SODIUM 146 mEq/L (134-144)
[2016-06-20] MEDS: HYDROCORTISONE 100 MG/2 ML VIAL IVP SCH ×2 (06:39→14:26)
[2016-06-20] MEDS: METHOCARBAMOL 500 MG in NS 50 ML IV SCH ×2 (06:41→14:13)
[2016-06-20] MEDS: SENNOSIDES/DOCUSATE SODIUM TAB PO SCH (08:10)
[2016-06-20] MEDS: LEFLUNOMIDE 20 MG TAB PO SCH (08:10)
[2016-06-20] MEDS: ATORVASTATIN CALCIUM 40 MG TAB PO SCH (08:10)
[2016-06-20] MEDS: GABAPENTIN 300 MG CAP PO SCH (08:10)
--- NOTE | 2016-06-20 08:11 | NEUSURGPN ---
<Lilo Zamora - Last Filed: 06/20/16 08:11> Date of Surgery: 06/18/16 Post Op Day: 2 Assessment/Plan: A/P: 70 yo male sp sub-occipital craniectomy with C1-[id number] and posterior fusion Occiput- T1 POD2 -re-intubated yesterday afternoon, will defer to critical care -ok to remove collar while intubated -Neuro checks -Postop MRI C-spine demonstrates postoperative changes with decompression of upper cervical cord, there is evidence of a prior cerebellar stroke noted. -MRI brain- small cortical cerebellar infarct of uncertain age -Postop xrays completed, hardware looks good -Optimize pain control - minimize narcotics -DCT: TEDs, SCDs, Lovenox ok to resume on POD #3, ASA to resume POD#7 -Please call neurosurgery with any changes in neuro or motor exam Subjective: Intubated. No overnight issues per RN. Objective: No spontaneous eye opening Not following commands Moving bilateral UE spontaneously Incision c/d/i Catheter Insertion Date: 06/14/16 - Physician Discussed Patient with : Leandro Neurosurgery Physical Exam - Vitals, I&O, Labs I and O 06/19/16 06/20/16 06/21/16 05:59 05:59 05:59 Intake Total 2093 1337.8 Output Total 1802 2405 Balance 291 -1067.2 Weight 52.3 kg Intake: Oral (ml) 0 IV Intake (ml) 1100 160 IV Infused (ml) 993 1177.8 Dexmedetomidine HCl 400 40 127.7 mcg In Ns 100 ml @ Titrate IV CONT ANH Rx#: [id number] Diltiazem 125 mg In D5w 61.8 125 ml @ Per Protocol IV CONT ANH Rx#:[id number] NS W/ 20 KCl/L 1,000 ml @ 889 928 75 mls/hr IV CONT ANH Rx #:[id number] Propofol/Emulsion 100 ml 32 40 @ Per Protocol IV CONT ANH Rx#:[id number] fentaNYL/NACL 100 ml @ 32 20.3 Per Protocol IV CONT ANH Rx#:[id number] Output: Urine (ml) 1800 2405 Catheter 1800 2405 Wound Drainage (ml) 2 Back Fabien Mason 2 Other: Number of Stools Catheter 0 1 Microbiology 06/17/16 15:00 - Final Sputum, Induced/Suctioned Sputum Culture - Final Staphylococcus Aureus Vital Signs Temp Pulse Resp BP Pulse Ox 36.7 C 50 L 16 116/50 L 100 06/19/16 20:00 06/20/16 08:00 06/20/16 08:00 06/20/16 07:00 06/20/16 08:00 Laboratory Results 06/20/16 04:35 06/20/16 04:35 ICD10 Worksheet Patient Problems: Problems Problem Status Onset Spinal stenosis in cervical region Acute <Los Reeves - Last Filed: 06/20/16 14:28> - Physician Patient Seen by : Leandro (I saw the patient and met with his family. Waiting for patient to be extubated again. Discussed plan with nursing for no more pain mediations or sedation once he is extubated as he is very sensitive to anything. Will defer to critical care and appreciate their management of the patient.) Neurosurgery Physical Exam - Vitals, I&O, Labs I and O 06/19/16 06/20/16 06/21/16 05:59 05:59 05:59 Intake Total 2093 1337.8 Output Total 1802 2405 Balance 291 -1067.2 Weight 52.3 kg Intake: Oral (ml) 0 IV Intake (ml) 1100 160 IV Infused (ml) 993 1177.8 Dexmedetomidine HCl 400 40 127.7 mcg In Ns 100 ml @ Titrate IV CONT ANH Rx#: [id number] Diltiazem 125 mg In D5w 61.8 125 ml @ Per Protocol IV CONT ANH Rx#:[id number] NS W/ 20 KCl/L 1,000 ml @ 889 928 75 mls/hr IV CONT ANH Rx #:[id number] Propofol/Emulsion 100 ml 32 40 @ Per Protocol IV CONT ANH Rx#:[id number] fentaNYL/NACL 100 ml @ 32 20.3 Per Protocol IV CONT ANH Rx#:[id number] Output: Urine (ml) 1800 2405 Catheter 1800 2405 Wound Drainage (ml) 2 Back Fabien Mason 2 Other: Number of Stools Catheter 0 1 Microbiology 06/17/16 15:00 - Final Sputum, Induced/Suctioned Sputum Culture - Final Staphylococcus Aureus Vital Signs Temp Pulse Resp BP Pulse Ox 36.8 C 96 18 155/80 H 100 06/20/16 12:00 06/20/16 13:00 06/20/16 13:00 06/20/16 13:00 06/20/16 13:00 Laboratory Results 06/20/16 04:35 06/20/16 04:35
[2016-06-20] MEDS: CHLORHEXIDINE GLUCONATE 15 ML UDL PO SCH ×2 (08:46→20:30)
[2016-06-20] MEDS: ERTAPENEM 1 GM in NS 100 ML IV SCH (08:47)
[2016-06-20] MEDS: ENOXAPARIN 40 MG/0.4 ML SYR SC SCH (08:47)
[2016-06-20] MEDS ORDERED: FAMOTIDINE 20 MG/NACL 50 ML IV SCH (09:00)
[2016-06-20 09:04] LABS: BASE EXCESS -1.8 mEq/L (-2.5-2.5); BICARBONATE 22 mEq/L (22-26); MEASURED OXYGEN SATURATION 98 % (92-95); PCO2 36 mmHg (34-38); PO2 123 mmHg (65-75); TCO2 23 mEq/L (23-27)
[2016-06-20 09:06] LABS: END TIDAL CO2 28; O2 CONCENTRATIION 40 % (0-100); P/F RATIO 308 RATIO
[2016-06-20] MEDS ORDERED: DIAZEPAM 5 MG TAB TUBE PRN (09:35)
[2016-06-20] MEDS ORDERED: diphenhydrAMINE 12.5 MG/5 ML UDCUP TUBE PRN (09:36)
[2016-06-20] MEDS ORDERED: LACTULOSE 20 GM/30 ML UDCUP TUBE PRN (09:44)
[2016-06-20] MEDS ORDERED: MAGNESIUM HYDROXIDE 30 ML UDCUP TUBE PRN (09:45)
[2016-06-20] MEDS ORDERED: ONDANSETRON DISINTEGRATING 4 MG TAB TUBE PRN (09:50)
[2016-06-20] MEDS ORDERED: GABAPENTIN 250 MG/5 ML 30 ML BOTTLE TUBE SCH ×2 (10:00→12:00)
[2016-06-20] MEDS: SENNOSIDES 17.6 MG/10 ML UDL TUBE SCH ×2 (10:35→20:34)
[2016-06-20] MEDS: GABAPENTIN 250 MG/5 ML 30 ML BOTTLE TUBE SCH ×4 (12:49→20:30)
[2016-06-20] MEDS: DEXMEDETOMIDINE HCL 400 MCG in NS 100 ML IV SCH (12:55)
--- NOTE | 2016-06-20 13:21 | PDINTPN ---
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 He has been slow to wake, though support has been minimal. 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 He has also had issues with excess sedation. * Respiratory failure with hypoxia 2/2 above. He was extubated postop but required re-intubation due to edema. Extubated in AM 06/19 but required re- intubation about 1999. Today, his son reported loud chronic snoring with excess daytime somnolence, consistent with JUAN JOSE, which may have contributed to his repeat intubations. I suspect he will require vent support for the next day or two while we work out an appropriate level of pain control without excess sedation so he can clear secretions. If his awareness can be elevated, he could be a bipap candidate once re-extubated. His PNA has not been a major contributor now. * * s/p C1-4 laminectomy with PSF. Stable from this perspective. C-collar off while on vent. * Altered mental status- likely related to medications. Will aggressively titrate back on all sedation for now. * PNA- LLL . Remains stable and will continue Invanz for now. * RA- on chronic steroids and BP high today. Started on hydrocortisone overnight 06/18-06/19, since unable to take po * HTN- much better on dilt drip. Keep this for now, but mayneed to start po calcium channel nicolas once extubated. * Afib- Remains in NSR on dilt drip * Critical care time 30 minutes at bedside, in addition to discussing with family , RN, RT, rounding team Subjective: Re-intubated evening of 06/19 2/2 poor mental status, work of breathing, and increased oxygen requirement. Objective: Vital Signs Temp Pulse Resp BP Pulse Ox 36.8 C 96 18 155/80 H 100 06/20/16 12:00 06/20/16 13:00 06/20/16 13:00 06/20/16 13:00 06/20/16 13:00 Microbiology 06/17/16 15:00 - Final Sputum, Induced/Suctioned Sputum Culture - Final Staphylococcus Aureus Laboratory Results 06/20/16 04:35 06/20/16 04:35 06/19/16 06/20/16 06/21/16 05:59 05:59 05:59 Intake Total 2093 1337.8 Output Total 1338 2405 Balance 291 -1067.2 PT 14.4 SEC (12.0-15.0) 06/17/16 00:00 INR 1.13 (0.83-1.16) 06/17/16 00:00 Physical Exam - Physical Exam General Appearance: no apparent distress, other (calm on vent) EENT: PERRL/EOMI Neck: other (C-collar off) Respiratory: lungs clear, normal breath sounds, No respiratory distress, No accessory muscle use, No rales, No rhonchi Cardiac/Chest: normal peripheral pulses, regular rate, rhythm, No edema Abdomen: normal bowel sounds, non-tender, soft, No distended Skin: normal color, warm/dry Lymphatic: no adenopathy Extremities: normal inspection, No pedal edema Neuro/Psych: other (sedated on vent) ICD10 Worksheet Patient Problems: Problems Problem Status Onset Spinal stenosis in cervical region Acute
--- NOTE | 2016-06-20 14:43 | HOSPPROG ---
Hospitalist Progress Note Assessment/Plan: * Severe cervical stenosis with cord compression s/p C1-C4 laminectomy * Acute respiratory failure -re-intubated twice - poor mental status is cause (over-sedation) * Metabolic encephalopathy -severe - suspect medication induced * PAF - now NSR -diltiazem drip -consider anti-coagulation when more stable and okay with neurosurgery * Aspiration PNA -Invanz day #5 * RA - chronic steroids -prednisone * RA associated ILD * Cerebellar CVA -restart Plavix when okay per neurosurgery -consider change to warfarin given probable afib -unclear age of stroke by MRI - but reportedly "evolving" -will initiate stroke protocol including neurology consult -consider CTA head/neck * PVD/stent -Plavix/statin * Uncontrolled HTN -improved Subjective: Re-intubated last night Objective: Vital Signs Temp Pulse Resp BP Pulse Ox 36.8 C 61 17 118/44 L 100 06/20/16 12:00 06/20/16 14:00 06/20/16 14:00 06/20/16 14:00 06/20/16 14:00 Microbiology 06/17/16 15:00 - Final Sputum, Induced/Suctioned Sputum Culture - Final Staphylococcus Aureus Laboratory Results 06/20/16 04:35 06/20/16 04:35 06/19/16 06/20/16 06/21/16 05:59 05:59 05:59 Intake Total 2093 1337.8 Output Total 1802 2405 Balance 291 -1067.2 PT 14.4 SEC (12.0-15.0) 06/17/16 00:00 INR 1.13 (0.83-1.16) 06/17/16 00:00 d/w Dr. Sexton ICU rounds - need to hold sedation as much as possible CXR: hazy basilar infiltrate - Physical Exam Constitutional: no apparent distress, appears nourished, not in pain Cardiovascular: regular rate and rhythym, no murmur, rub, or gallop Respiratory: no respiratory distress, no rales or rhonchi, clear to auscultation Gastrointestinal: normoactive bowel sounds, soft, non-tender abdomen, no palpable masses Skin: no rashes or abrasions, no fluctuance, no induration Neurologic: No AAOx3 Psychiatric: encephalopathic, flat affect, poor insight, poor judgement, poor memory, other (a little more awake today, eyes open but minimally responsive), No agitated ICD10 Worksheet Patient Problems: Problems Problem Status Onset Spinal stenosis in cervical region Acute
[2016-06-20] MEDS ORDERED: 1/2 NS 1,000 ML IV SCH (15:00)
[2016-06-20] MEDS ORDERED: IOPAMIDOL (ISOVUE 370) 100 ML BTL IV ONE (16:36)
--- NOTE | 2016-06-20 17:36 | GCON ---
[f rep st] CONSULTATION NEUROLOGY CONSULT DATE OF CONSULTATION: 06/20/2016 REFERRING PHYSICIAN: Dr. Segundo CHIEF COMPLAINT: Question left cerebellar stroke. HISTORY OF PRESENT ILLNESS: The patient is a very pleasant 70-year-old gentleman who was admitted o n 14 of June by Neurosurgery for severe spinal cord cervical stenosis and bilateral upper extremi ty weakness and numbness for surgery. He had a preoperative medical evaluation including echocardio gram on 06/14/16 which revealed a normal left atria size, ejection fraction of 55%. There was no se ptal defect noted. No intracardiac thrombus noted. Initial ECG showed some supraventricular tachyc ardia with P waves. He had a subsequent EKG on the which showed sinus rhythm. Finally on the , he did have what again look like an SVT and the ECG showed a question of atrial fibrillation. I did talk to his hospitalist here, Dr. Segundo, who felt this may not have been entirely accurate, t hat there likely was P-waves and this was more of a supraventricular tachycardia. In any case, he h as not had any other definitive runs of atrial fibrillation in the past in terms of his past medical history or in the hospital in terms of his telemetry. The patient is very sensitive to medicines and he was given copious amounts of pain medicine apparen tly prior to his surgery and then went under general anesthesia and has been slow to recover postope ratively. In this setting, he had an MRI brain which is reporting a T2 hyperintensity in the left c erebellar hemisphere which is fairly small without any significant mass effect, etc. The diffusion- weighted images are completely absent in this area due to metal artifact from his recent surgery. T herefore the age is indeterminate of the T2 imaging, i.e., it is unclear if this is a chronic infarc t versus acute or subacute. There are certainly no symptoms to correlate with these findings to sug gest an acute infarct. REVIEW OF SYSTEMS: A 10-point review of systems with his family, was only pertinent to the HPI. PAST MEDICAL HISTORY: Per the History of Present Illness. FAMILY HISTORY: Per the History of Present Illness. SOCIAL HISTORY: Per the History of Present Illness. MEDICATIONS: Per the History of Present Illness. ALLERGIES: Per the History of Present Illness. PHYSICAL EXAMINATION: VITAL SIGNS: Blood pressure 118/44, heart rate 87, O2 sat 99%. Patient is a febrile at 36.7. GENERAL: The patient was drowsy and encephalopathic, not following commands. Mov ing all 4 extremities equally. No myoclonus or subclinical seizure activity in my presence. IMPRESSION/PLAN: 1. Recent cervical spine surgery. 2. Query left cerebellar infarct. Total floor time was 70 minutes today; over 50% in direct counseling with the patient and primarily with his son and [id number], and coordination with care with other providers of the medical tea m including Hospital Medicine and nursing. The patient's left cerebellar T2 hyperintensity may represent an old chronic infarct. A more recent subacute infarct is certainly not entirely ruled out. There are no symptoms to definitively sugges t an acute or subacute event. In terms of mechanism, his preoperative echocardiogram does not show any abnormalities to strongly i mplicate a cardioembolic source. After reviewing his ECG findings with Dr. Segundo, it does not appea r that the patient has any definitive underlying atrial fibrillation. We certainly will continue mo nitoring on ECG telemetry to screen for any paroxysmal atrial fibrillation. If he does have any par oxysmal atrial fibrillation, then the recommendation would be oral anticoagulation when cleared by N eurosurgery. Outside of this, I recommend a CT angiography with contrast of the head and neck to evaluate his ves sels to exclude any significant thrombus or dissection. If these studies are unremarkable, then the treatment recommended would be anti-platelet therapy when cleared by Neurosurgery, which I understa nd would be postoperative day 7. I will follow up on the above. Thank you for this consultation. /[id number]/MODL
--- NOTE | 2016-06-20 19:14 | PDCONSULT ---
Offset Press Operator Note: TEST / RADIOLOGY NOTE: I was called by Dr. 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 He reported no visible intraluminal clot or thrombus in the vertebral arteries. He reported no dissection. He reported no visible surgical hardware making direct contact with the vertebral arteries. Essentially, there was no clear cause for the atypical finding. We also reviewed the MRI brain recently done - which on the visible DWI images showed no acute infarct. I called the patient's neurosurgeon, Dr. Reeves, immediately after this call at 6:46 pm and discussed the above findings. Dr. Reeves reviewed the procedure and intraoperative findings with me. Essentially, that there was no evidence of vascular compromise intraoperatively ; and, most importantly, that the vertebral artery findings very well maybe chronic from his subluxation (secondary to his rheumatoid arthritis) (see preop MRI) - and that he has compensated with good collateral flow through the [place]. The patient certainly did not have features of [id number] when I saw him earlier today - he was moving all four extremities briskly. The plan we agreed upon would be for Dr. Reeves to review the films, (and if available) his colleague Dr. Delgado (vascular neurosurgery), and call me back if they have any other recommendations. I offered to help in anyway, including collaborating with [facility] ([phone]), if indicated.
--- NOTE | 2016-06-20 19:44 | NEUROPROG ---
Assessment: Addendum: I received a follow-up call from Dr Reeves at 7:26 pm 06/20/16. He and Dr. Delgado were able to review all CT-angiography images and both agree that vertebral artery findings are likely chronic. They felt no indication for transfemoral angiography now. These impressions along with patient's clinical status (delirium + briskly moving all 4 extremities) is consistent with this impression. Thus, I agree, continue supportive care, minimize sedating medications and start anti-platelet therapy as soon as cleared by neurosurgery. Objective: Vital Signs Temp Pulse Resp BP Pulse Ox 36.9 C 83 20 158/62 H 100 06/20/16 16:00 06/20/16 18:00 06/20/16 18:00 06/20/16 18:00 06/20/16 18:00 Microbiology 06/17/16 15:00 - Final Sputum, Induced/Suctioned Sputum Culture - Final Staphylococcus Aureus Laboratory Results 06/20/16 04:35 06/20/16 04:35 06/19/16 06/20/16 06/21/16 05:59 05:59 05:59 Intake Total 2093 1337.8 714.5 Output Total 1802 2405 510 Balance 291 -1067.2 204.5 PT 14.4 SEC (12.0-15.0) 06/17/16 00:00 INR 1.13 (0.83-1.16) 06/17/16 00:00 Allergies/Adverse Reactions: No Allergies Allergy (Verified 06/13/16 17:56)
[2016-06-20] MEDS: FAMOTIDINE 20 MG TAB TUBE SCH (20:29)
[2016-06-20] MEDS: AMITRIPTYLINE HCL 10 MG TAB TUBE SCH (20:29)
[2016-06-20] MEDS: predniSONE 5 MG TAB TUBE SCH (20:29)
[2016-06-21 03:28] LABS: % IMMATURE GRANULYOCYTES 0.6 % (0.0-1.1); ABSOLUTE IMMATURE GRANULOCYTES 0.03 10^3/uL (0.00-0.10); ADD DIFF? NO; ADD MORPH? NO; ADD SCAN? NO; ATYPICAL LYMPHOCYTE FLAG 0 (0-99); FRAGMENT RBC FLAG 0 (0-99); HEMATOCRIT 23.9 % (40.0-51.0); HEMOGLOBIN 7.6 g/dL (13.7-17.5); LEFT SHIFT FLG 0 (0-99); LIPEMIA HEMOLYSIS FLAG 80 (0-99); MEAN CELL HEMOGLOBIN 26.5 pg (27.9-34.1); MEAN CELL HEMOGLOBIN CONCENTR. 31.8 g/dL (32.4-36.7); MEAN CELL VOLUME 83.3 fL (81.5-99.8); MEAN PLATELET VOLUME 10.7 fL (8.7-11.7); PLATELET CLUMPS FLAG 0 (0-99); PLATELET COUNT 153 10^3/uL (150-400); RED BLOOD CELL COUNT 2.87 10^6/uL (4.40-6.38); RED CELL DISTRIBUTION WIDTH 15.9 % (11.5-15.2)
[2016-06-21 03:53] LABS: ANION GAP 8 mEq/L (8-16); CALCIUM 8.3 mg/dL (8.5-10.4); CARBON DIOXIDE 26 mEq/l (22-31); CHLORIDE 115 mEq/L (97-110); CREATININE 1.1 mg/dL (0.7-1.3); GLOMERULAR FILTRATION RATE > 60; GLUCOSE 228 mg/dL (70-100); SODIUM 149 mEq/L (134-144)
[2016-06-21] MEDS ORDERED: MAGNESIUM SULF 1 GM/DEXTROSE 100 ML IV ONE (04:15)
[2016-06-21] MEDS: POTASSIUM Cl (KCl) 100 ML IV SCH ×4 (04:24→06:35)
[2016-06-21] MEDS: SENNOSIDES 17.6 MG/10 ML UDL TUBE SCH ×2 (07:24→21:16)
--- NOTE | 2016-06-21 07:29 | NEUSURGPN ---
Assessment/Plan: A/P: 70 yo male sp sub-occipital craniectomy with C1-[id number] and posterior fusion Occiput- T1 POD4 -Intubated-extubated as tolerated, will defer to critical care -No collar need today, will start soft collar tomorrow -Neuro checks -Postop MRI C-spine demonstrates postoperative changes with decompression of upper cervical cord, there is evidence of a prior cerebellar stroke noted. CT with occluded bilateral vertebral arteries, but with evidence of collateral posterior flow. Okay to start ASA today per neurology. Appreciate there consultation and recommendations -MRI brain- small cortical cerebellar infarct of uncertain age -Postop xrays completed, hardware looks good -Optimize pain control - minimize narcotics -DCT: TEDs, SCDs, Lovenox -Please call neurosurgery with any changes in neuro or motor exam Subjective: Intubated Objective: NAD alert, follows simple commands bilaterally. Incision c/d/i Catheter Insertion Date: 06/14/16 - Physician Patient Seen by : Leandro Neurosurgery Physical Exam - Vitals, I&O, Labs I and O 06/20/16 06/21/16 06/22/16 05:59 05:59 05:59 Intake Total 1337.8 1519.5 Output Total 2405 1210 Balance -1067.2 309.5 Weight 52.3 kg Intake: Oral (ml) 0 IV Intake (ml) 160 636 IV Infused (ml) 1177.8 139.5 Dexmedetomidine HCl 400 127.7 77 mcg In Ns 100 ml @ Titrate IV CONT ANH Rx#: [id number] Diltiazem 125 mg In D5w 61.8 62 125 ml @ Per Protocol IV CONT ANH Rx#:[id number] NS W/ 20 KCl/L 1,000 ml @ 928 75 mls/hr IV CONT ANH Rx #:[id number] Propofol/Emulsion 100 ml 40 @ Per Protocol IV CONT ANH Rx#:[id number] fentaNYL/NACL 100 ml @ 20.3 0.5 Per Protocol IV CONT ANH Rx#:[id number] Tube Feeding (ml) 344 Tube Flush (ml) 400 Output: Urine (ml) 2405 1210 Catheter 2405 1210 Other: Number of Stools Catheter 1 1 Vital Signs Temp Pulse Resp BP Pulse Ox 37.0 C 93 24 H 140/58 H 100 06/21/16 04:00 06/21/16 07:00 06/21/16 07:00 06/21/16 07:00 06/21/16 07:00 Laboratory Results 06/21/16 03:15 06/21/16 03:15 ICD10 Worksheet Patient Problems: Problems Problem Status Onset Spinal stenosis in cervical region Acute
[2016-06-21] MEDS: ERTAPENEM 1 GM in NS 100 ML IV SCH (08:15)
[2016-06-21] MEDS: ENOXAPARIN 40 MG/0.4 ML SYR SC SCH (08:15)
[2016-06-21] MEDS: CHLORHEXIDINE GLUCONATE 15 ML UDL PO SCH ×2 (08:15→21:15)
[2016-06-21] MEDS ORDERED: PROTOCOL POTASSIUM 1 DOSE MISC PRN (08:23)
[2016-06-21] MEDS ORDERED: ASPIRIN EC 81 MG TAB PO SCH (09:00)
[2016-06-21] MEDS: FAMOTIDINE 20 MG TAB TUBE SCH ×2 (09:11→21:15)
[2016-06-21] MEDS: LEFLUNOMIDE 20 MG TAB TUBE SCH (09:11)
[2016-06-21] MEDS: ATORVASTATIN CALCIUM 40 MG TAB TUBE SCH (09:11)
[2016-06-21] MEDS: ASPIRIN 81 MG CHEWABLE TAB TUBE SCH (09:21)
[2016-06-21] MEDS: GABAPENTIN 250 MG/5 ML 30 ML BOTTLE TUBE SCH ×3 (09:37→21:15)
--- NOTE | 2016-06-21 11:11 | PDINTPN ---
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 He has been slow to wake, though support has been minimal. 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 He has also had issues with excess sedation. * Respiratory failure with hypoxia 2/2 above. Remains ventilator dependent. He was extubated postop but required re-intubation due to edema. Extubated in AM but required re-intubation about 1999. After holding all meds, his awareness is substantially improved and he is following simple commands for family. Tpiece wean today and likely extubation. May use nasal bipap prn post- extubation. * s/p C1-4 laminectomy with PSF. Stable from this perspective. C-collar off while on vent. * Altered mental status- likely related to medications. Will aggressively titrate back on all sedation for now. * PNA- LLL . Remains stable and will continue Invanz for now. WBC remains normal * RA- on chronic steroids. Started on hydrocortisone overnight 06/18-06/19, since unable to take po * HTN- controlled with dilt drip, and will likely require oral meds once appropriate. * Afib- Remains in NSR on dilt drip. This may have been episodic * Critical care time 30 minutes at bedside, in addition to discussing with family , RN, RT, rounding team 06/21/16 11:09 Subjective: No events overnight; more awake today Objective: Vital Signs Temp Pulse Resp BP Pulse Ox 37.1 C 101 H 30 H 168/51 H 99 06/21/16 08:00 06/21/16 11:00 06/21/16 11:00 06/21/16 11:00 06/21/16 11:00 Laboratory Results 06/21/16 03:15 06/21/16 03:15 06/20/16 06/21/16 06/22/16 05:59 05:59 05:59 Intake Total 1337.8 1519.5 Output Total 2405 1210 Balance -1067.2 309.5 PT 14.4 SEC (12.0-15.0) 06/17/16 00:00 INR 1.13 (0.83-1.16) 06/17/16 00:00 Physical Exam - Physical Exam General Appearance: alert, no apparent distress EENT: PERRL/EOMI Neck: normal inspection Respiratory: lungs clear, normal breath sounds, No respiratory distress, No rales, No rhonchi Cardiac/Chest: normal peripheral pulses, regular rate, rhythm, edema (trace) Abdomen: non-tender, soft, No distended Skin: normal color, warm/dry, No cyanosis Lymphatic: no adenopathy Extremities: non-tender, No pedal edema Neuro/Psych: other (more alert and grossly non focal) ICD10 Worksheet Patient Problems: Problems Problem Status Onset Spinal stenosis in cervical region Acute
--- NOTE | 2016-06-21 13:43 | HOSPPROG ---
Hospitalist Progress Note Assessment/Plan: * Severe cervical stenosis with cord compression s/p C1-C4 laminectomy * Acute respiratory failure -re-intubated twice - poor mental status is cause (over-sedation) * Metabolic encephalopathy -severe - suspect medication induced * Aspiration PNA -Invanz day #6 * RA - chronic steroids -prednisone * RA associated ILD * Cerebellar CVA - ? 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 Sexton ICU rounds - weaning well tele reviewed - NSR, no afib CTA neck - bilateral vertebral artery occlusion - Physical Exam Constitutional: no apparent distress, appears nourished, not in pain Eyes: PERRL Cardiovascular: regular rate and rhythym, no murmur, rub, or gallop Respiratory: no respiratory distress, no rales or rhonchi, clear to auscultation Gastrointestinal: normoactive bowel sounds, soft, non-tender abdomen, no palpable masses Skin: no rashes or abrasions, no fluctuance, no induration Neurologic: No AAOx3 Psychiatric: encephalopathic, other (awakens, still somnolent but better), No agitated ICD10 Worksheet Patient Problems: Problems Problem Status Onset Spinal stenosis in cervical region Acute
[2016-06-21 15:00] LABS: BASE EXCESS 2.6 mEq/L (-2.5-2.5); BICARBONATE 27 mEq/L (22-26); MEASURED OXYGEN SATURATION 71 % (92-95); PCO2 41 mmHg (34-38); PO2 42 mmHg (65-75); TCO2 28 mEq/L (23-27)
[2016-06-21 15:03] LABS: BIPAP YES; EXP PRESSURE 5; INSP PRESSURE 15; O2 CONCENTRATIION 100 % (0-100); P/F RATIO 42 RATIO
--- NOTE | 2016-06-21 15:35 | NEUROPROG ---
Assessment: 35 total minutes floor time; over 50% in counseling the patient and family regarding imaging results and coordination of care. Please see last nights multiple notes for details. Essentially, CTA of the head and neck show was likely chronic occlusion of bilateral vertebral arteries at the ostia with reconstitution distally with normal intracranial circulation from anterior circulation from good collaterals. the patient has improved overnight and today with decreased sedation. He is moving all 4 extremities and follows commands. His MRI findings did not show any definitive acute abnormalities on diffusion-weighted imaging. The T2 signal in his left cerebellum is unclear whether it is chronic versus more recent. Going forward, he can start anti-platelet therapy when cleared by Neurosurgery. No further recommendations. We will continue to follow as needed. Subjective: Improved overnight Objective: Vital Signs Temp Pulse Resp BP Pulse Ox 37.0 C 91 24 H 178/99 H 100 06/21/16 12:00 06/21/16 15:00 06/21/16 15:00 06/21/16 15:00 06/21/16 15:00 Laboratory Results 06/21/16 03:15 06/21/16 03:15 06/20/16 06/21/16 06/22/16 05:59 05:59 05:59 Intake Total 1337.8 1519.5 Output Total 2405 1210 Balance -1067.2 309.5 PT 14.4 SEC (12.0-15.0) 06/17/16 00:00 INR 1.13 (0.83-1.16) 06/17/16 00:00 patient is awake moving all 4 extremities to command Allergies/Adverse Reactions: No Allergies Allergy (Verified 06/13/16 17:56)
[2016-06-21 18:25] LABS: POTASSIUM 3.3 mEq/L (3.5-5.2)
[2016-06-21] MEDS: POTASSIUM Cl (KCl) 50 ML IV SCH ×3 (19:30→20:13)
[2016-06-21] MEDS: DILTIAZEM 125 MG in D5W 125 ML IV SCH (20:13)
[2016-06-21] MEDS: AMITRIPTYLINE HCL 10 MG TAB TUBE SCH (21:15)
[2016-06-21] MEDS: predniSONE 5 MG TAB TUBE SCH (21:16)
[2016-06-22 04:33] LABS: BASE EXCESS 2.1 mEq/L (-2.5-2.5); BICARBONATE 25 mEq/L (22-26); MEASURED OXYGEN SATURATION 93 % (92-95); PCO2 36 mmHg (34-38); PO2 70 mmHg (65-75); TCO2 27 mEq/L (23-27)
[2016-06-22 04:36] LABS: BIPAP YES
[2016-06-22 04:37] LABS: EXP PRESSURE 5; INSP PRESSURE 15; O2 CONCENTRATIION 40 % (0-100); P/F RATIO 175 RATIO
[2016-06-22 05:21] LABS: % IMMATURE GRANULYOCYTES 1.5 % (0.0-1.1); ABSOLUTE IMMATURE GRANULOCYTES 0.12 10^3/uL (0.00-0.10); ABSOLUTE NRBC COUNT 0.02 10^3/uL (0-0.01); ADD DIFF? NO; ADD MORPH? NO; ADD SCAN? NO; ATYPICAL LYMPHOCYTE FLAG 0 (0-99); FRAGMENT RBC FLAG 0 (0-99); HEMATOCRIT 24.1 % (40.0-51.0); HEMOGLOBIN 7.6 g/dL (13.7-17.5); LEFT SHIFT FLG 10 (0-99); LIPEMIA HEMOLYSIS FLAG 80 (0-99); MEAN CELL HEMOGLOBIN 26.8 pg (27.9-34.1); MEAN CELL HEMOGLOBIN CONCENTR. 31.5 g/dL (32.4-36.7); MEAN CELL VOLUME 84.9 fL (81.5-99.8); MEAN PLATELET VOLUME 10.3 fL (8.7-11.7); NRBC-AUTO% 0.2 % (0.0-0.2); PLATELET CLUMPS FLAG 10 (0-99); PLATELET COUNT 172 10^3/uL (150-400); RED BLOOD CELL COUNT 2.84 10^6/uL (4.40-6.38); RED CELL DISTRIBUTION WIDTH 16.2 % (11.5-15.2)
[2016-06-22 05:38] LABS: ANION GAP 6 mEq/L (8-16); CALCIUM 8.4 mg/dL (8.5-10.4); CARBON DIOXIDE 26 mEq/l (22-31); CHLORIDE 117 mEq/L (97-110); GLOMERULAR FILTRATION RATE > 60; GLUCOSE 81 mg/dL (70-100); POTASSIUM 3.6 mEq/L (3.5-5.2); SODIUM 149 mEq/L (134-144)
[2016-06-22] MEDS: CHLORHEXIDINE GLUCONATE 15 ML UDL PO SCH (06:58)
[2016-06-22] MEDS: GABAPENTIN 250 MG/5 ML 30 ML BOTTLE TUBE SCH ×3 (06:59→21:12)
--- NOTE | 2016-06-22 07:54 | NEUSURGPN ---
Assessment/Plan: A/P: 70 yo male sp sub-occipital craniectomy with C1-[id number] and posterior fusion Occiput- T1 POD5 -Extubated on BIPAP- will defer to critical care -Soft collar today -Neuro checks -Postop MRI C-spine demonstrates postoperative changes with decompression of upper cervical cord, there is evidence of a prior cerebellar stroke noted. CT with occluded bilateral vertebral arteries, but with evidence of collateral posterior flow. Okay to start ASA today. Switch to plavix once more stable. Appreciate neurology consultation and recommendations -MRI brain- small cortical cerebellar infarct of uncertain age -Postop xrays completed, hardware looks good -Optimize pain control - minimize narcotics. Tylenol. -PT/OT/DESK EDITOR -DCT: TEDs, SCDs, Lovenox -Please call neurosurgery with any changes in neuro or motor exam -D/w Dr Reeves Subjective: Pt on BIPAP. Family at bedside. Family states he is in pain. Objective: Awake and alert Following commands BIPAP on VSS MAEx4 L handgrip 4-/5, did not squeeze on R Wiggles toes bilaterally Incision dressed cdi Urinary Catheter in Place: Yes Urinary Catheter Indication: Surgical Requirement Catheter Insertion Date: 06/14/16 - Physician Discussed Patient with Dr.: Reeves Neurosurgery Physical Exam - Vitals, I&O, Labs I and O 06/21/16 06/22/16 06/23/16 05:59 05:59 05:59 Intake Total 1519.5 1270 Output Total 1210 1290 Balance 309.5 -20 Intake: IV Intake (ml) 636 778 IV Infused (ml) 139.5 132 Dexmedetomidine HCl 400 77 mcg In Ns 100 ml @ Titrate IV CONT ANH Rx#: [id number] Diltiazem 125 mg In D5w 62 132 125 ml @ Per Protocol IV CONT ANH Rx#:[id number] fentaNYL/NACL 100 ml @ 0.5 Per Protocol IV CONT ANH Rx#:[id number] Tube Feeding (ml) 344 160 Tube Flush (ml) 400 200 Output: Urine (ml) 1210 1290 Catheter 1210 1290 Other: Number of Stools Catheter 1 Microbiology 06/16/16 23:50 Blood Culture - Final Blood 06/16/16 23:59 Blood Culture - Final Blood Vital Signs Temp Pulse Resp BP Pulse Ox 37.1 C 86 22 H 156/84 H 94 06/22/16 00:00 06/22/16 06:00 06/22/16 06:00 06/22/16 06:00 06/22/16 06:00 Laboratory Results 06/22/16 05:00 06/22/16 05:00 ICD10 Worksheet Patient Problems: Problems Problem Status Onset Spinal stenosis in cervical region Acute
[2016-06-22] MEDS: ENOXAPARIN 40 MG/0.4 ML SYR SC SCH (08:01)
[2016-06-22] MEDS: POTASSIUM Cl (KCl) 50 ML IV SCH ×3 (08:01→09:34)
[2016-06-22] MEDS: FAMOTIDINE 20 MG TAB TUBE SCH ×2 (08:04→21:11)
[2016-06-22] MEDS: SENNOSIDES 17.6 MG/10 ML UDL TUBE SCH ×2 (08:05→20:48)
[2016-06-22] MEDS: ERTAPENEM 1 GM in NS 100 ML IV SCH (09:34)
--- NOTE | 2016-06-22 13:13 | PDINTPN ---
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 He has been slow to wake, though support has been minimal. 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 He has also had issues with excess sedation. * Respiratory failure with hypoxia 2/2 above. Successful extubation 06/21. Stable off bipap this ma. Would continue with qhs bipap and prn. * s/p C1-4 laminectomy with PSF. Stable from this perspective. Now on soft C- collar * Altered mental status- likely related to medications. 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 Follows commands. * PNA- LLL . Remains stable on Invanz for now. Continue for course of 10 days total. * RA- on chronic steroids. Started on hydrocortisone overnight 06/18-06/19, then changed to PT while intubated. Now failing swallow eval so will resume Solumedrol. * HTN- controlled with dilt drip, but still not able to take PO * Afib- Remains in NSR on dilt drip. This may have been episodic * Critical care time 35 minutes at bedside, in addition to discussing with family , RN, RT, rounding team 06/21/16 11:09 06/22/16 13:13 Subjective: Extubated 06/21, but needed bipap overnight. Much better this AM and advanced to 6 lpm NC Objective: Vital Signs Temp Pulse Resp BP Pulse Ox 36.7 C 94 30 H 160/69 H 94 06/22/16 08:00 06/22/16 12:00 06/22/16 12:00 06/22/16 12:00 06/22/16 12:00 Microbiology 06/16/16 23:50 Blood Culture - Final Blood 06/16/16 23:59 Blood Culture - Final Blood Laboratory Results 06/22/16 05:00 06/22/16 05:00 06/21/16 06/22/16 06/23/16 05:59 05:59 05:59 Intake Total 1519.5 1270 Output Total 1210 1290 Balance 309.5 -20 PT 14.4 SEC (12.0-15.0) 06/17/16 00:00 INR 1.13 (0.83-1.16) 06/17/16 00:00 Physical Exam - Physical Exam General Appearance: alert, no apparent distress EENT: PERRL/EOMI Neck: non-tender Respiratory: lungs clear, normal breath sounds, No respiratory distress, No rales Cardiac/Chest: normal peripheral pulses, regular rate, rhythm, No edema Abdomen: non-tender, soft, No distended Skin: normal color, warm/dry, No cyanosis Lymphatic: no adenopathy Extremities: No pedal edema Neuro/Psych: normal mood/affect ICD10 Worksheet Patient Problems: Problems Problem Status Onset Spinal stenosis in cervical region Acute
[2016-06-22] MEDS: ASPIRIN 81 MG CHEWABLE TAB TUBE SCH ×2 (13:15→16:20)
[2016-06-22] MEDS: ATORVASTATIN CALCIUM 40 MG TAB TUBE SCH (13:15)
[2016-06-22] MEDS: LEFLUNOMIDE 20 MG TAB TUBE SCH ×2 (13:16→21:11)
[2016-06-22] MEDS: DILTIAZEM 125 MG in D5W 125 ML IV SCH (14:02)
[2016-06-22] MEDS ORDERED: ETOMIDATE 40 MG/20 ML INJ IV ONE (15:40)
[2016-06-22] MEDS ORDERED: MIDAZOLAM 2 MG/2 ML VIAL IVP ONE (15:40)
--- NOTE | 2016-06-22 15:50 | HOSPPROG ---
Hospitalist Progress Note Assessment/Plan: * Severe cervical stenosis with cord compression s/p C1-C4 laminectomy * Acute respiratory failure -re-intubated three times - oversedation, mucus plug * Metabolic encephalopathy -severe - suspect medication induced * Aspiration PNA -Invanz day #7 - DC soon * RA - chronic steroids -prednisone * RA associated ILD * Cerebellar CVA - ? 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 * PVD/stent -Plavix/statin * Uncontrolled HTN -diltiazem gtt - eventual change to oral agent * Hypernatremia - free H2O down NGT Subjective: Extubated, starting to wake up Objective: Vital Signs Temp Pulse Resp BP Pulse Ox 36.7 C 89 26 H 167/79 H 95 06/22/16 08:00 06/22/16 14:00 06/22/16 14:00 06/22/16 14:00 06/22/16 14:00 Microbiology 06/16/16 23:50 Blood Culture - Final Blood 06/16/16 23:59 Blood Culture - Final Blood Laboratory Results 06/22/16 05:00 06/22/16 05:00 06/21/16 06/22/16 06/23/16 05:59 05:59 05:59 Intake Total 1519.5 1270 Output Total 1210 1290 Balance 309.5 -20 PT 14.4 SEC (12.0-15.0) 06/17/16 00:00 INR 1.13 (0.83-1.16) 06/17/16 00:00 AXR viewed - complete collapse right lung d/w Dr Sexton ICU rounds - improving as of this am - Physical Exam Constitutional: no apparent distress, appears nourished, not in pain Cardiovascular: regular rate and rhythym, no murmur, rub, or gallop Respiratory: no respiratory distress, no rales or rhonchi, clear to auscultation Gastrointestinal: normoactive bowel sounds, soft, non-tender abdomen, no palpable masses Skin: no rashes or abrasions, no fluctuance, no induration Neurologic: No AAOx3, No weakness, No facial droop Psychiatric: encephalopathic, flat affect, poor insight, poor judgement, poor memory, No interacting appropriately, No agitated ICD10 Worksheet Patient Problems: Problems Problem Status Onset Spinal stenosis in cervical region Acute
[2016-06-22] MEDS ORDERED: DILTIAZEM 125 MG in D5W 125 ML IV SCH (16:00)
[2016-06-22] MEDS ORDERED: DILTIAZEM 30 MG TAB PO SCH (18:00)
[2016-06-22] MEDS: methylPREDNISolone SOD SUCC 40 MG/ML VIAL IVP SCH (18:01)
[2016-06-22 18:39] LABS: POTASSIUM 4.1 mEq/L (3.5-5.2)
[2016-06-22] MEDS: DEXMEDETOMIDINE HCL 400 MCG in NS 100 ML IV SCH (19:13)
--- NOTE | 2016-06-22 19:44 | GPN ---
[f rep st] PROCEDURE NOTE PROCEDURE: Emergent intubation. INDICATION: Worsening hypoxemia and complete white out on chest x-ray. DESCRIPTION OF PROCEDURE: Conscious sedation was achieved using a total of 1 mg IV Versed and 20 mg IV etomidate. The patient tolerated these well. A 7.5 endotracheal tube was placed on the 1st att empt using a GlideScope without difficulty. There was no excess edema, as noted on previous intubat ion attempts, and there were no obvious complications. A postprocedure chest x-ray showed the ET tu be to be in satisfactory position. /[id number]/MODL
--- NOTE | 2016-06-22 19:44 | GPN ---
[f rep st] PROCEDURE NOTE DATE OF PROCEDURE: 06/22/2016 PROCEDURE: Bronchoscopy. CONSENT: Consent was waived due to the emergent nature of the procedure, although it was discussed with the son at the bedside. INDICATION: Respiratory failure and recent re-intubation, with complete white out on his chest x-ra y. ANESTHESIA: Conscious sedation was achieved using a milligram of Versed and etomidate that had been given to his recently placed endotracheal tube. TECHNIQUE: The bronchoscope was advanced through the recently placed endotracheal tube, which revea led copious white thick secretions at the right mainstem bronchus. These were easily washed and lav aged out down to the right lower lobe sub segments. There were copious amounts of secretions down t o that level. There was no hemoptysis, no mass, no obvious aspiration that occurred. Examination o n the left side revealed no significant pathology. Overall, the patient tolerated the procedure yovani wheat /[id number]/MODL
[2016-06-22] MEDS: AMITRIPTYLINE HCL 10 MG TAB TUBE SCH (21:11)
[2016-06-22] MEDS: HYDROCODONE/APAP 10/325 TAB TUBE PRN (21:19)
[2016-06-22 21:26] LABS: BASE EXCESS 1.5 mEq/L (-2.5-2.5); BICARBONATE 24 mEq/L (22-26); MEASURED OXYGEN SATURATION 95 % (92-95); PCO2 34 mmHg (34-38); PO2 85 mmHg (65-75); TCO2 26 mEq/L (23-27)
[2016-06-22 21:27] LABS: ASSIST CONTROL YES; END TIDAL CO2 24; P/F RATIO 213 RATIO; TOTAL RATE 22
[2016-06-22 21:28] LABS: O2 CONCENTRATIION 40 % (0-100)
[2016-06-23 04:33] LABS: BASE EXCESS 2.3 mEq/L (-2.5-2.5); BICARBONATE 25 mEq/L (22-26); MEASURED OXYGEN SATURATION 97 % (92-95); PCO2 32 mmHg (34-38); PO2 106 mmHg (65-75); TCO2 26 mEq/L (23-27)
[2016-06-23 04:44] LABS: ASSIST CONTROL YES; END TIDAL CO2 24; O2 CONCENTRATIION 40 % (0-100); P/F RATIO 265 RATIO; TOTAL RATE 22
[2016-06-23 05:15] LABS: % IMMATURE GRANULYOCYTES 0.9 % (0.0-1.1); ABSOLUTE IMMATURE GRANULOCYTES 0.05 10^3/uL (0.00-0.10); ADD DIFF? NO; ADD MORPH? YES; ADD SCAN? NO; ATYPICAL LYMPHOCYTE FLAG 10 (0-99); FRAGMENT RBC FLAG 0 (0-99); HEMATOCRIT 22.1 % (40.0-51.0); LEFT SHIFT FLG 10 (0-99); LIPEMIA HEMOLYSIS FLAG 80 (0-99); MEAN CELL HEMOGLOBIN 26.4 pg (27.9-34.1); MEAN CELL HEMOGLOBIN CONCENTR. 30.8 g/dL (32.4-36.7); MEAN CELL VOLUME 85.7 fL (81.5-99.8); MEAN PLATELET VOLUME 10.4 fL (8.7-11.7); PLATELET CLUMPS FLAG 10 (0-99); PLATELET COUNT 141 10^3/uL (150-400); RED BLOOD CELL COUNT 2.58 10^6/uL (4.40-6.38); RED CELL DISTRIBUTION WIDTH 16.6 % (11.5-15.2)
[2016-06-23 05:40] LABS: HEMOGLOBIN 6.8 g/dL (13.7-17.5)
[2016-06-23 05:44] LABS: ANION GAP 7 mEq/L (8-16); CALCIUM 8.2 mg/dL (8.5-10.4); CARBON DIOXIDE 25 mEq/l (22-31); CHLORIDE 115 mEq/L (97-110); GLOMERULAR FILTRATION RATE > 60; GLUCOSE 179 mg/dL (70-100); MAGNESIUM 2.3 mg/dL (1.6-2.3); POTASSIUM 4.4 mEq/L (3.5-5.2); SODIUM 147 mEq/L (134-144)
[2016-06-23 07:20] LABS: HYPOCHROMIA 1+; MICROCYTES 1+; PLATELET ESTIMATE ADEQUATE (ADEQ); POLYCHROMASIA 1+
[2016-06-23 07:21] LABS: ELLIPTOCYTES 1+; KERATOCYTES 1+
--- NOTE | 2016-06-23 08:15 | NEUSURGPN ---
Assessment/Plan: A/P: 70 yo male sp sub-occipital craniectomy with C1-S2chhbdduckxl and posterior fusion Occiput- T1 POD6 -Intubated d/t pulmonary issues, will defer to Critical on extubation -Soft collar once extubated -Neuro checks -Postop MRI C-spine demonstrates postoperative changes with decompression of upper cervical cord, there is evidence of a prior cerebellar stroke noted. CT with occluded bilateral vertebral arteries, but with evidence of collateral posterior flow. On ASA Switch to plavix once more stable. Appreciate neurology consultation and recommendations -MRI brain- small cortical cerebellar infarct of uncertain age -Postop xrays completed, hardware looks good -Optimize pain control -Okay for light Precedex at this time Tylenol. 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 MAEx4. Not following commands for me this morning on exam. Incision c/d/i Catheter Insertion Date: 06/14/16 - Physician Discussed Patient with : Le[facility] Neurosurgery Physical Exam - Vitals, I&O, Labs I and O 06/22/16 06/23/16 06/24/16 05:59 05:59 05:59 Intake Total 1270 1472 Output Total 1290 1560 Balance -20 -88 Weight 56.7 kg Intake: IV Intake (ml) 778 705 IV Infused (ml) 132 212 Dexmedetomidine HCl 400 30 mcg In Ns 100 ml @ Per Protocol IV CONT ANH Rx#: [id number] Diltiazem 125 mg In D5w 132 182 125 ml @ Per Protocol IV CONT ANH Rx#:[id number] Tube Feeding (ml) 160 320 Tube Flush (ml) 200 235 Output: Urine (ml) 1290 1560 Catheter 1290 1560 Other: Number of Stools Catheter 2 Microbiology 06/16/16 23:50 Blood Culture - Final Blood 06/16/16 23:59 Blood Culture - Final Blood Vital Signs Temp Pulse Resp BP Pulse Ox 37.2 C 94 20 109/58 L 99 06/23/16 04:00 06/23/16 06:00 06/23/16 06:00 06/23/16 06:00 06/23/16 06:00 Laboratory Results 06/23/16 05:10 06/23/16 05:10 ICD10 Worksheet Patient Problems: Problems Problem Status Onset Spinal stenosis in cervical region Acute
[2016-06-23] MEDS: LEFLUNOMIDE 20 MG TAB TUBE SCH (08:25)
[2016-06-23] MEDS: ATORVASTATIN CALCIUM 40 MG TAB TUBE SCH (08:25)
[2016-06-23] MEDS: ENOXAPARIN 40 MG/0.4 ML SYR SC SCH (08:25)
[2016-06-23] MEDS: FAMOTIDINE 20 MG TAB TUBE SCH ×2 (08:25→21:19)
[2016-06-23] MEDS: ASPIRIN 81 MG CHEWABLE TAB TUBE SCH (08:25)
[2016-06-23] MEDS: methylPREDNISolone SOD SUCC 40 MG/ML VIAL IVP SCH (08:26)
[2016-06-23] MEDS: SENNOSIDES 17.6 MG/10 ML UDL TUBE SCH ×2 (08:26→21:22)
[2016-06-23] MEDS: ERTAPENEM 1 GM in NS 100 ML IV SCH (08:27)
[2016-06-23] MEDS: GABAPENTIN 250 MG/5 ML 30 ML BOTTLE TUBE SCH ×3 (08:28→21:22)
[2016-06-23] MEDS ORDERED: D5W IV SCH (09:00)
[2016-06-23] MEDS ORDERED: METHYLPREDNISOLONE SOD SUCC IV SCH (09:00)
[2016-06-23] MEDS ORDERED: PROPOFOL/EMULSION 500 MG/50 ML BOTTLE IV ONE (13:56)
--- NOTE | 2016-06-23 15:19 | POSTOPPROG ---
Post Op Note Date of Operation: 06/23/16 Surgeon: Manish Monroy Molding Associate: Dr Robert Sexton Anesthesiologist: none Anesthesia: GET(General Endotracheal), IV Sedation Pre-op Diagnosis: Respiratory failure Post-op Diagnosis: same Procedure: percutaneous tracheotomy placement/Broncoscopy Findings: 4-5 cm above deo Inf/Abcess present in the surg proc area at time of surgery?: No Complications: none Specimen(s): none
[2016-06-23] MEDS ORDERED: fentaNYL 100 MCG/2 ML INJ IVP ONE (15:30)
[2016-06-23] MEDS ORDERED: ROCURONIUM 100 MG/10 ML VIAL IVP ONE (15:30)
[2016-06-23] MEDS: DEXMEDETOMIDINE HCL 400 MCG in NS 100 ML IV SCH (15:37)
--- NOTE | 2016-06-23 15:45 | HOSPPROG ---
Hospitalist Progress Note Assessment/Plan: Assessment: 70-year-old male presents with acute cerebellar CVA and stenosis with cord compression complicated by aspiration pneumonia acute pulmonary insufficiency Plan: 1. Severe cervical stenosis with cord compression s/p C1-C4 laminectomy - appreciate ongoing NSGY consultation 2. Acute pulmonary insufficiency. Evidenced by failure to wean from vent, likely multifactoral including aspiration pneumonia, suspected JUAN JOSE, airway edema , and mucus plugging - d/w Dr. Sexton, s/p suctioning and trach placement today 3. Acute toxic encephalopathy. Evidenced by global brain dysfunction characterized as somnolence and poor responsiveness, acute change from baseline , likely 2/2 combination of sedating Rx and infxn - now that he has trach, can lighten sedation 4. Aspiration PNA. Evidenced by RLL air space disease (personally interpreted) - s/p 8 days invanz, DC today 5. Chronic RA. Cont chronic steroids - cont prednisone 6. Cerebellar CVA. Acute vs. subacute - started on low dose ASA, consider change to home Plavix when okay with neurosurg - no definitive evidence for afib 7. 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 PVD. S/p stent, cont plavix/statin 9. Uncontrolled HTN. Cont on dilt 10. Atrial fibrillation. Paroxysmal, RVR, cont on dilt gtt and transition to TF if tolerates 11. Acute Hypernatremia. 2/2 free water deficit, cont TF water 12. Acute metabolic acidosis. 2/2 lactic acid in setting of above, resolved Diet. TF PPx. High risk, SCDs Code. Full Dispo. ADD uncertain pending stabilization of above Subjective: Counseled the family regarding patient's individual medical issues as well as his anticipated improvement in level of functioning an interaction status post trach placement Objective: Vital Signs Temp Pulse Resp BP Pulse Ox 36.3 C 69 17 136/54 H 97 06/23/16 12:00 06/23/16 15:34 06/23/16 15:34 06/23/16 15:34 06/23/16 15:34 Laboratory Results 06/23/16 05:10 06/23/16 05:10 06/22/16 06/23/16 06/24/16 05:59 05:59 05:59 Intake Total 1270 1472 Output Total 1290 1560 Balance -20 -88 PT 14.4 SEC (12.0-15.0) 06/17/16 00:00 INR 1.13 (0.83-1.16) 06/17/16 00:00 - Time Spent With Patient Time Spent with Patient: greater than 35 minutes Time Spent with Patient: Greater than 35 minutes spent on this patients care, greater than 50% of time spent counseling, educating, and coordinating care regarding the above mentioned plan. - Physical Exam Constitutional: not in pain, chronically ill appearing, obese, No uncomfortable Eyes: other (10 point pupils comma fix) Cardiovascular: No irregularly irregular, No tachycardia Respiratory: inspiratory crackles, No expiratory wheeze, No bronchial breath sounds Gastrointestinal: normoactive bowel sounds, soft, non-tender abdomen, no palpable masses Psychiatric: other (Not responding to verbal stimuli) ICD10 Worksheet Patient Problems: Problems Problem Status Onset Spinal stenosis in cervical region Acute
--- NOTE | 2016-06-23 15:47 | GOP ---
[f rep st] OPERATIVE REPORT DATE OF OPERATION: SURGEON: Manish Monroy MD DINKEY OPERATOR: Oli Sexton MD, who performed bronchoscopy during the procedure. He may dictate proc edures separately. ANESTHESIA: The patient was already intubated endotracheally intubated. IV sedation was added to t hat. PREOPERATIVE DIAGNOSIS: Respiratory failure. POSTOPERATIVE DIAGNOSIS: Respiratory failure. PROCEDURE PERFORMED: Percutaneous tracheostomy. FINDINGS: SPECIMENS: None. ESTIMATED BLOOD LOSS: Less than 10 mL. INDICATIONS: This is a 70-year-old gentleman who presented for neurosurgical procedure with cervica l fusion and decompression. The patient had postoperative failure to extubate; he failed 3 times an d now is here for a tracheotomy. DESCRIPTION OF PROCEDURE: The patient was placed supine on his ICU bed. After adequate sedation, a time-out procedure was performed. His neck was prepped with chlorhexidine and draped sterilely. L ocal anesthetic was infused in skin and subcutaneous tissues of the neck. Since he is unable to ext end his neck, an incision is made transversely, deepened with blunt dissection, and a spinal needle was then used to gain access to the trachea at the midline. This was done under bronchoscopic evalu ation, and the endotracheal tube was pulled back from above while placing a wire. Dilation of the t ract was done with a Blue Rhino kit, and an 8-Setswana double-lumen Shiley tracheotomy tube was then p laced. It was secured inferiorly with 3-0 Prolene suture with 2 sutures. Bronchoscopy was used to ensure it is in appropriate position. COMPLICATIONS: There are no complications. POSTOPERATIVE CHECKS: Chest x-ray is pending. /[id number]/MODL
--- NOTE | 2016-06-23 16:03 | PDINTPN ---
Quality Control Engineering Technician Progress Note Assessment/Plan: Assessment/plan: 70 M with chronic RA on chronic steroids admitted for cervical spine surgery with cord compression, and failed extubation in OR thought to be a result of edema. He has been slow to wake, though support has been minimal. 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 He has also had issues with excess sedation. * Respiratory failure with hypoxia 2/2 above. After the OR he remained stable for several days in the ICU, and was extubated but lasted only a few hours so was subsequently re-intubated. After holding all sedating medications he appeared ready for extubation again and was much more interactive and alert, though required Bipap. However, after about 24 hours his O2 requirement increased and his CXR revealed complete white-out on the right. He was re- intubated and had bronchoscopy with significant improvement in his film. As a result, he underwent percutaneous tracheostomy today with Dr. Monroy and myself. My expectation is he will likely be liberated from the vent in the next 24-48 hours but will have easier access for pulmonary toilet or ventilation if necessary. * s/p C1-4 laminectomy with PSF. Stable from this perspective. Now on soft C- collar, working with PT/OT * Altered mental status- likely related to medications. * PNA- LLL . Remains stable on Invanz for now. Continue for course of 10 days total. * RA- on chronic steroids. Started on hydrocortisone overnight 06/18-06/19, then changed to PT while intubated. Now failing swallow eval so will resume Solumedrol until he can transition to PO. * HTN- controlled with dilt drip, but still not able to take PO * Afib- Remains in NSR on dilt drip. This may have been episodic, but may be PAF. Holding full anticoag until OK with neurosurgery * Critical care time 35 minutes at bedside, in addition to discussing with family , RN, RT, rounding team. Procedures separate 06/21/16 11:09 06/22/16 13:13 06/23/16 15:54 Subjective: Stable on vent overnight. BP soft this am so dilt held. Rn reports 3 soft brown stools Objective: Vital Signs Temp Pulse Resp BP Pulse Ox 36.3 C 69 17 136/54 H 97 03/25/17 12:00 06/23/16 15:34 06/23/16 15:34 06/23/16 15:34 06/23/16 15:34 Laboratory Results 06/23/16 05:10 06/23/16 05:10 06/22/16 06/23/16 06/24/16 05:59 05:59 05:59 Intake Total 1270 1472 Output Total 1290 1560 Balance -20 -88 PT 14.4 SEC (12.0-15.0) 06/17/16 00:00 INR 1.13 (0.83-1.16) 06/17/16 00:00 Physical Exam - Physical Exam General Appearance: no apparent distress EENT: PERRL/EOMI Neck: supple Respiratory: lungs clear, normal breath sounds, No respiratory distress, No rales Cardiac/Chest: normal peripheral pulses, regular rate, rhythm, No edema Abdomen: non-tender, soft, No distended Skin: normal color, warm/dry Lymphatic: no adenopathy Extremities: No pedal edema Neuro/Psych: other (sedated on vent) ICD10 Worksheet Patient Problems: Problems Problem Status Onset Spinal stenosis in cervical region Acute
[2016-06-23] MEDS ORDERED: PROPOFOL/EMULSION 50 ML IV ONE (16:30)
--- NOTE | 2016-06-23 16:42 | GPN ---
[f rep st] PROCEDURE NOTE DATE OF PROCEDURE: 06/23/2016 PROCEDURE: Bronchoscopy. INDICATION: Bronchoscopic guidance for percutaneous tracheostomy performed by Dr. Monroy. The consent was obtained from the patient's son prior to the administration of anesthesia. The risk s and benefits of the procedure, both from a bronchoscopy, as well as percutaneous tracheostomy were explained in detail, and they all agreed to proceed. Sedation was achieved using a total of 50 mcg of fentanyl, a propofol drip and 50 mg of rocuronium. Patient tolerated these without complications. DESCRIPTION OF PROCEDURE: A bronchoscope was advanced through the existing endotracheal tube to pro vide direct visualization of the percutaneous tracheostomy. Procedure went well. We had good visua lization following the placement of the tracheostomy tube. There were minimal bloody secretions wit hin the airway itself. Otherwise appeared to be stable, and there were no complications. A chest x -ray is pending. /[id number]/MODL
[2016-06-23 18:12] LABS: HEMATOCRIT 31.5 % (40.0-51.0); HEMOGLOBIN 10.3 g/dL (13.7-17.5)
[2016-06-23] MEDS: AMITRIPTYLINE HCL 10 MG TAB TUBE SCH (21:19)
[2016-06-24 05:26] LABS: % IMMATURE GRANULYOCYTES 0.9 % (0.0-1.1); ABSOLUTE IMMATURE GRANULOCYTES 0.06 10^3/uL (0.00-0.10); ABSOLUTE NRBC COUNT 0.02 10^3/uL (0-0.01); ADD DIFF? NO; ADD MORPH? NO; ADD SCAN? NO; ATYPICAL LYMPHOCYTE FLAG 0 (0-99); FRAGMENT RBC FLAG 0 (0-99); HEMATOCRIT 31.6 % (40.0-51.0); HEMOGLOBIN 10.3 g/dL (13.7-17.5); LEFT SHIFT FLG 0 (0-99); LIPEMIA HEMOLYSIS FLAG 80 (0-99); MEAN CELL HEMOGLOBIN 27.5 pg (27.9-34.1); MEAN CELL HEMOGLOBIN CONCENTR. 32.6 g/dL (32.4-36.7); MEAN CELL VOLUME 84.5 fL (81.5-99.8); MEAN PLATELET VOLUME 10.7 fL (8.7-11.7); NRBC-AUTO% 0.3 % (0.0-0.2); PLATELET CLUMPS FLAG 10 (0-99); PLATELET COUNT 149 10^3/uL (150-400); RED BLOOD CELL COUNT 3.74 10^6/uL (4.40-6.38); RED CELL DISTRIBUTION WIDTH 15.9 % (11.5-15.2)
[2016-06-24 05:34] LABS: ANION GAP 5 mEq/L (8-16); CALCIUM 7.9 mg/dL (8.5-10.4); CARBON DIOXIDE 24 mEq/l (22-31); CHLORIDE 116 mEq/L (97-110); CREATININE 0.9 mg/dL (0.7-1.3); GLOMERULAR FILTRATION RATE > 60; GLUCOSE 185 mg/dL (70-100); POTASSIUM 4.3 mEq/L (3.5-5.2); SODIUM 145 mEq/L (134-144)
[2016-06-24] MEDS: DEXMEDETOMIDINE HCL 400 MCG in NS 100 ML IV SCH (05:58)
[2016-06-24] MEDS: GABAPENTIN 250 MG/5 ML 30 ML BOTTLE TUBE SCH ×3 (07:35→20:13)
--- NOTE | 2016-06-24 08:23 | NEUSURGPN ---
Assessment/Plan: A/P: 70 yo male sp sub-occipital craniectomy with C1-Q2iajajutilfd and posterior fusion Occiput- T1 POD7 -Trache yesterday -Soft collar once tolerated with trache -Neuro checks -Postop MRI C-spine demonstrates postoperative changes with decompression of upper cervical cord, there is evidence of a prior cerebellar stroke noted. CT with occluded bilateral vertebral arteries, but with evidence of collateral posterior flow. On ASA Switch to plavix once more stable. Appreciate neurology consultation and recommendations -MRI brain- small cortical cerebellar infarct of uncertain age -Postop xrays completed, hardware looks good -Optimize pain control -Wean IV medications as tolerated -PT/OT/STRESS ANALYST -DVT: TEDs, SCDs, Lovenox - Anemia: received 2 unit PRBC yesterday, improved -Please call neurosurgery with any changes in neuro or motor exam Subjective: Unable to obtain Objective: NAD Awake and alert. MAEx4, dressing c/d/i Catheter Insertion Date: 06/14/16 - Physician Discussed Patient with : Leandro Neurosurgery Physical Exam - Vitals, I&O, Labs I and O 06/23/16 06/24/16 06/25/16 05:59 05:59 05:59 Intake Total 1472 2682.8 Output Total 1560 1100 Balance -88 1582.8 Weight 56.7 kg Intake: IV Intake (ml) 705 1134 IV Infused (ml) 212 83.8 Dexmedetomidine HCl 400 30 73.4 mcg In Ns 100 ml @ Per Protocol IV CONT ANH Rx#: [id number] Diltiazem 125 mg In D5w 182 1.4 125 ml @ Per Protocol IV CONT ANH Rx#:[id number] Propofol/Emulsion 50 ml @ 9 Per Protocol IV ONCALL ONE Rx#:[id number] Tube Feeding (ml) 320 565 Tube Flush (ml) 235 250 Packed Red Blood Cells ( 650 ml) Output: Urine (ml) 1560 900 Catheter 1560 900 Liquid Stool (ml) 200 Catheter 200 Other: Number of Stools Catheter 2 Vital Signs Temp Pulse Resp BP Pulse Ox 36.4 C 69 17 142/61 H 99 06/24/16 04:00 06/24/16 06:00 06/24/16 06:00 06/24/16 06:00 06/24/16 06:00 Laboratory Results 06/24/16 05:10 06/24/16 05:10 ICD10 Worksheet Patient Problems: Problems Problem Status Onset Spinal stenosis in cervical region Acute
[2016-06-24] MEDS: methylPREDNISolone SOD SUCC 40 MG/ML VIAL IVP SCH (09:25)
[2016-06-24] MEDS: ASPIRIN 81 MG CHEWABLE TAB TUBE SCH (09:25)
[2016-06-24] MEDS: ENOXAPARIN 40 MG/0.4 ML SYR SC SCH (09:25)
[2016-06-24] MEDS: FAMOTIDINE 20 MG TAB TUBE SCH ×2 (09:25→20:13)
[2016-06-24] MEDS: LEFLUNOMIDE 20 MG TAB TUBE SCH (09:25)
[2016-06-24] MEDS: SENNOSIDES 17.6 MG/10 ML UDL TUBE SCH ×2 (09:26→20:13)
[2016-06-24] MEDS: ATORVASTATIN CALCIUM 40 MG TAB TUBE SCH (09:26)
[2016-06-24] MEDS: HYDROCODONE/APAP 10/325 TAB TUBE PRN ×2 (09:59→13:19)
[2016-06-24] MEDS ORDERED: D50W 25 GM/50 ML SYR IVP PRN (10:35)
[2016-06-24] MEDS ORDERED: ALTEPLASE 2 MG VIAL IVP PRN (12:25)
[2016-06-24] MEDS: DILTIAZEM 30 MG TAB TUBE SCH ×3 (12:35→23:03)
[2016-06-24] MEDS: INSULIN REGULAR HUMAN 100 UNIT/ML SC SCH ×3 (12:36→20:12)
--- NOTE | 2016-06-24 14:32 | HOSPPROG ---
Hospitalist Progress Note Assessment/Plan: Assessment: 70-year-old male presents with acute cerebellar CVA and stenosis with cord compression complicated by aspiration pneumonia acute pulmonary insufficiency Plan: 1. Severe cervical stenosis with cord compression s/p C1-C4 laminectomy - appreciate ongoing NSGY consultation 2. Acute pulmonary insufficiency. Evidenced by failure to wean from vent, likely multifactoral including aspiration pneumonia, suspected JUAN JOSE, airway edema , and mucus plugging - d/w Dr. Sexton, trach placement successful, PMV when PRINTED CIRCUIT BOARD REWORKER able 3. Acute toxic encephalopathy. Evidenced by global brain dysfunction characterized as somnolence and poor responsiveness, acute change from baseline , likely 2/2 combination of sedating Rx and infxn - off sedation 4. Aspiration PNA. Evidenced by RLL air space disease - s/p 8 days invanz 5. Chronic RA. Cont chronic steroids - cont prednisone home dose via Tube, placed on ISS 6. Cerebellar CVA. Acute vs. subacute - started on low dose ASA, consider change to home Plavix when okay with neurosurg 7. 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 PVD. S/p stent, cont plavix/statin 9. Uncontrolled HTN. Cont on dilt 10. Atrial fibrillation. Paroxysmal, RVR, adjust to tube dilt 30mg q6 11. Acute Hypernatremia. 2/2 free water deficit, cont TF water 12. Acute metabolic acidosis. 2/2 lactic acid in setting of above, resolved Diet. TF PPx. High risk, SCDs Code. Full Dispo. ADD uncertain pending stabilization of above Subjective: Patient is attempting to speak Objective: Vital Signs Temp Pulse Resp BP Pulse Ox 36.7 C 96 21 H 150/64 H 96 06/24/16 08:00 06/24/16 12:35 06/24/16 12:00 06/24/16 12:35 06/24/16 12:00 Laboratory Results 06/24/16 05:10 06/24/16 05:10 06/23/16 06/24/16 06/25/16 05:59 05:59 05:59 Intake Total 1472 2682.8 11 Output Total 1560 1100 Balance -88 1582.8 11 PT 14.4 SEC (12.0-15.0) 06/17/16 00:00 INR 1.13 (0.83-1.16) 06/17/16 00:00 - Physical Exam Constitutional: no apparent distress, not in pain, chronically ill appearing, obese Eyes: PERRL, anicteric sclera, EOMI Cardiovascular: No systolic murmur, No irregularly irregular, No tachycardia, No edema Respiratory: No expiratory wheeze, No inspiratory crackles, No bronchial breath sounds, No respiratory distress Gastrointestinal: normoactive bowel sounds, soft, non-tender abdomen, no palpable masses Neurologic: other (Follows commands, bilateral good hand pourer strength) Psychiatric: anxious ICD10 Worksheet Patient Problems: Problems Problem Status Onset Spinal stenosis in cervical region Acute
--- NOTE | 2016-06-24 15:50 | PDINTPN ---
Business Strategy Manager Progress Note Assessment/Plan: Assessment/plan: 70 M with chronic RA on chronic steroids admitted for cervical spine surgery with cord compression, and failed extubation in OR thought to be a result of edema. He has been slow to wake, though support has been minimal. 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 He has also had issues with excess sedation. * Respiratory failure with hypoxia 2/2 above. After the OR he remained stable for several days in the ICU, and was extubated but lasted only a few hours so was subsequently re-intubated. After holding all sedating medications he appeared ready for extubation again and was much more interactive and alert, though required Bipap. However, after about 24 hours his O2 requirement increased and his CXR revealed complete white-out on the right. He was re- intubated and had bronchoscopy with significant improvement in his film. As a result, he underwent percutaneous tracheostomy 06/23. Proceed with trach collar as tolerated and PMV prn. * s/p C1-4 laminectomy with cord compresion and treated with PSF. Stable from this perspective. Now on soft C-collar, working with PT/OT * Altered mental status- likely related to medications. * PNA- LLL . Remains stable on Invanz for now. * RA- on chronic steroids. agree with maintaining home dose * HTN- controlled with dilt drip, but still not able to take PO * Afib- Remains in NSR on dilt drip. This may have been episodic, but may be PAF. Holding full anticoag until OK with neurosurgery * Subjective: S/P tracheostomy 06/23. Tolerating cpap 5/5 this am. Objective: Vital Signs Temp Pulse Resp BP Pulse Ox 36.7 C 114 H 23 H 171/82 H 96 06/24/16 08:00 06/24/16 14:00 06/24/16 14:00 06/24/16 14:00 06/24/16 14:00 Laboratory Results 06/24/16 05:10 06/24/16 05:10 06/23/16 06/24/16 06/25/16 05:59 05:59 05:59 Intake Total 1472 2682.8 11 Output Total 1560 1100 Balance -88 1582.8 11 PT 14.4 SEC (12.0-15.0) 06/17/16 00:00 INR 1.13 (0.83-1.16) 06/17/16 00:00 Physical Exam - Physical Exam General Appearance: alert, no apparent distress EENT: PERRL/EOMI Neck: supple Respiratory: lungs clear, normal breath sounds, No rales, No rhonchi Cardiac/Chest: normal peripheral pulses, regular rate, rhythm, No edema Abdomen: normal bowel sounds, non-tender, soft, No distended Skin: normal color, warm/dry Lymphatic: no adenopathy Extremities: No pedal edema Neuro/Psych: no motor/sensory deficits, normal mood/affect ICD10 Worksheet Patient Problems: Problems Problem Status Onset Spinal stenosis in cervical region Acute
[2016-06-24] MEDS: AMITRIPTYLINE HCL 10 MG TAB TUBE SCH (20:12)
[2016-06-24] MEDS: predniSONE 5 MG TAB TUBE SCH (20:13)
[2016-06-24] MEDS: oxyCODONE IR 5 MG TAB TUBE PRN (23:02)
[2016-06-25 03:58] LABS: % IMMATURE GRANULYOCYTES 1.3 % (0.0-1.1); ADD DIFF? NO; ADD MORPH? NO; ADD SCAN? NO; ATYPICAL LYMPHOCYTE FLAG 0 (0-99); FRAGMENT RBC FLAG 0 (0-99); HEMATOCRIT 30.7 % (40.0-51.0); HEMOGLOBIN 9.9 g/dL (13.7-17.5); LEFT SHIFT FLG 10 (0-99); LIPEMIA HEMOLYSIS FLAG 80 (0-99); MEAN CELL HEMOGLOBIN 27.9 pg (27.9-34.1); MEAN CELL HEMOGLOBIN CONCENTR. 32.2 g/dL (32.4-36.7); MEAN CELL VOLUME 86.5 fL (81.5-99.8); MEAN PLATELET VOLUME 10.7 fL (8.7-11.7); PLATELET CLUMPS FLAG 10 (0-99); PLATELET COUNT 157 10^3/uL (150-400); RED BLOOD CELL COUNT 3.55 10^6/uL (4.40-6.38); RED CELL DISTRIBUTION WIDTH 16.4 % (11.5-15.2)
[2016-06-25 04:10] LABS: ANION GAP 3 mEq/L (8-16); CARBON DIOXIDE 28 mEq/l (22-31); CHLORIDE 115 mEq/L (97-110); CREATININE 0.9 mg/dL (0.7-1.3); GLOMERULAR FILTRATION RATE > 60; GLUCOSE 153 mg/dL (70-100); POTASSIUM 4.4 mEq/L (3.5-5.2); SODIUM 146 mEq/L (134-144)
[2016-06-25] MEDS: oxyCODONE IR 5 MG TAB TUBE PRN ×2 (05:09→20:02)
[2016-06-25] MEDS: DILTIAZEM 30 MG TAB TUBE SCH ×4 (05:10→23:31)
--- NOTE | 2016-06-25 06:48 | NEUSURGPN ---
Date of Surgery: 06/17/16 Post Op Day: 8 Assessment/Plan: Assessment: 70 yo male sp sub-occipital craniectomy with C1-C4 laminectomy and posterior fusion Occiput-T1 POD #8 Plan -Trach in place -Soft collar once tolerated with trach -continue neuro checks -Postop MRI C-spine demonstrates postoperative changes with decompression of upper cervical cord, there is evidence of a prior cerebellar stroke noted. CT with occluded bilateral vertebral arteries, but with evidence of collateral posterior flow. On ASA Switch to Plavix once more stable. Appreciate neurology consultation and recommendations -MRI brain- small cortical cerebellar infarct of uncertain age -Postop xrays completed, hardware looks good -optimize pain control -Wean IV medications as tolerated -PT/OT/CHICKEN HANGER-CPM -DVT: TEDs, SCDs, Lovenox -anemia: received 2 unit PRBC 2 days ago-H/H 12/29 today -placement still pending approval regarding pulmonary status -Please call neurosurgery with any changes in neuro or motor exam Subjective: No new complaints or concerns. No new events per RN. Objective: NAD Awake and alert. 4+/5 to bilat bi/tri/front office secretary 3/5 to WE/ELF/WF dressing c/d/i incision CDI-no s/s of infection Neuro Check Frequency: per routine Urinary Catheter in Place: Yes Urinary Catheter Indication: Other (Use Comment) (on vent) Catheter Insertion Date: 06/14/16 - Physician Discussed Patient with : Leandro Neurosurgery Physical Exam - Vitals, I&O, Labs I and O 06/24/16 06/25/16 06/26/16 05:59 05:59 05:59 Intake Total 2682.8 1054 Output Total 1100 1800 Balance 1582.8 -746 Intake: IV Intake (ml) 1134 IV Infused (ml) 83.8 11 Dexmedetomidine HCl 400 73.4 11 mcg In Ns 100 ml @ Per Protocol IV CONT ANH Rx#: [id number] Diltiazem 125 mg In D5w 1.4 125 ml @ Per Protocol IV CONT ANH Rx#:[id number] Propofol/Emulsion 50 ml @ 9 Per Protocol IV ONCALL ONE Rx#:[id number] Tube Feeding (ml) 565 743 Tube Flush (ml) 250 300 Packed Red Blood Cells ( 650 ml) Output: Urine (ml) 900 1800 Catheter 900 1800 Liquid Stool (ml) 200 Catheter 200 Other: Output Comment Catheter 3 cups Number of Stools Catheter 1 Vital Signs Temp Pulse Resp BP Pulse Ox 36.9 C 77 14 133/57 H 97 06/25/16 00:00 06/25/16 06:00 06/25/16 06:00 06/25/16 06:00 06/25/16 06:00 Laboratory Results 06/25/16 03:40 06/25/16 03:40 ICD10 Worksheet Patient Problems: Problems Problem Status Onset Spinal stenosis in cervical region Acute
[2016-06-25] MEDS: FAMOTIDINE 20 MG TAB TUBE SCH ×2 (08:13→20:02)
[2016-06-25] MEDS: HYDROCODONE/APAP 10/325 TAB TUBE PRN ×2 (08:13→14:49)
[2016-06-25] MEDS: ENOXAPARIN 40 MG/0.4 ML SYR SC SCH (08:14)
[2016-06-25] MEDS: GABAPENTIN 250 MG/5 ML 30 ML BOTTLE TUBE SCH ×3 (08:14→20:03)
[2016-06-25] MEDS: ASPIRIN 81 MG CHEWABLE TAB TUBE SCH (08:14)
[2016-06-25] MEDS: ATORVASTATIN CALCIUM 40 MG TAB TUBE SCH (08:14)
[2016-06-25] MEDS: LEFLUNOMIDE 20 MG TAB TUBE SCH (08:14)
[2016-06-25] MEDS: INSULIN REGULAR HUMAN 100 UNIT/ML SC SCH ×4 (08:49→20:03)
[2016-06-25] MEDS: SENNOSIDES 17.6 MG/10 ML UDL TUBE SCH ×2 (12:01→20:03)
--- NOTE | 2016-06-25 13:20 | PDINTPN ---
Pull Worker Progress Note Assessment/Plan: Assessment: 70 M with chronic RA on chronic steroids admitted for cervical spine surgery with cord compression, and failed extubation in OR thought to be a result of edema. He has been slow to wake, though support has been minimal. 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 He has also had issues with excess sedation. * Respiratory failure with hypoxia 2/2 above. After the OR he remained stable for several days in the ICU, and was extubated but lasted only a few hours so was subsequently re-intubated. After holding all sedating medications he appeared ready for extubation again and was much more interactive and alert, though required Bipap. However, after about 24 hours his O2 requirement increased and his CXR revealed complete white-out on the right. He was re- intubated and had bronchoscopy with significant improvement in his film. As a result, he underwent percutaneous tracheostomy 06/23. PTolerating trach collar all day today. * s/p C1-4 laminectomy with cord compresion and treated with PSF. Stable from this perspective. Now on soft C-collar, working with PT/OT, strength improving. * Altered mental status- likely related to medications. * PNA- LLL . Remains stable on Invanz for now. * RA- on chronic steroids. agree with maintaining home dose * HTN- Mostly normotensive, occasional high readings on diltiazem PRN. * Afib- Remains in NSR on dilt drip. This may have been episodic, but may be PAF. Holding full anticoag until OK with neurosurgery * Hypernatremia: Slightly higher today. Plan: Start PMSV trials today. Increase activity. Follow BP on diltiazem PRN. May need to increase dose. 06/25/16 13:37 Subjective: Pain controlled, quite weak but able to sit in chair. Denies dyspnea. Objective: Vital Signs Temp Pulse Resp BP Pulse Ox 36.8 C 87 14 167/58 H 97 06/25/16 08:00 06/25/16 12:18 06/25/16 12:00 06/25/16 12:18 06/25/16 12:00 Laboratory Results 06/25/16 03:40 06/25/16 03:40 06/24/16 06/25/16 06/26/16 05:59 05:59 05:59 Intake Total 2682.8 1054 Output Total 1100 1800 Balance 1582.8 -746 PT 14.4 SEC (12.0-15.0) 06/17/16 00:00 INR 1.13 (0.83-1.16) 06/17/16 00:00 Physical Exam - Physical Exam General Appearance: alert, no apparent distress EENT: normal ENT inspection Neck: normal inspection, other (C-Collar. Trach site OK.) Respiratory: lungs clear, normal breath sounds Cardiac/Chest: regular rate, rhythm, No edema Abdomen: normal bowel sounds, non-tender, soft Skin: normal color, warm/dry Extremities: normal inspection Neuro/Psych: alert, normal mood/affect, oriented x 3, motor weakness ICD10 Worksheet Patient Problems: Problems Problem Status Onset Spinal stenosis in cervical region Acute
--- NOTE | 2016-06-25 15:43 | HOSPPROG ---
Hospitalist Progress Note Assessment/Plan: Assessment: 70-year-old male presents with acute cerebellar CVA and stenosis with cord compression complicated by aspiration pneumonia acute pulmonary insufficiency Plan: 1. Severe cervical stenosis with cord compression s/p C1-C4 laminectomy - appreciate ongoing NSGY mgmt - collar height d/w OT and Charissa Melchor to fit lower collar if possible 2. Acute pulmonary insufficiency. Evidenced by failure to wean from vent, likely multifactoral including aspiration pneumonia, suspected JUAN JOSE, airway edema , and mucus plugging - trach placement successful, PMV ordered 3. Acute toxic encephalopathy. Evidenced by global brain dysfunction characterized as somnolence and poor responsiveness, acute change from baseline , likely 2/2 combination of sedating Rx and infxn - off sedation, interacting appropriately 4. Aspiration PNA. Evidenced by RLL air space disease - s/p 8 days invanz 5. Chronic RA. Cont chronic steroids - cont prednisone home dose via Tube, placed on ISS 6. Cerebellar CVA. Acute vs. subacute - d/w NSGY, reinitiated home dosage of plavix, remain on single agent therapy given recent surgery, may consider dual therapy in outpt setting w/ neuro f/u 7. 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 PVD. S/p stent, cont plavix/statin 9. Uncontrolled HTN. Cont on dilt PO 10. Atrial fibrillation. Paroxysmal, RVR, adjusted to tube dilt 30mg q6 11. Acute Hypernatremia. 2/2 free water deficit, cont TF water 12. Acute metabolic acidosis. 2/2 lactic acid in setting of above, resolved Diet. TF PPx. High risk, SCDs Code. Full Dispo. ADD to LTAC 06/26 vs. 06/27, pending stabilization of above Subjective: Patient with ongoing weakness in his bilateral legs, ongoing apraxia his bilateral hands, son would like to discuss overall prognosis with Neurosurgery Objective: Vital Signs Temp Pulse Resp BP Pulse Ox 36.8 C 90 22 H 123/59 H 94 06/25/16 14:00 06/25/16 14:00 06/25/16 14:00 06/25/16 14:00 06/25/16 14:00 Laboratory Results 06/25/16 03:40 06/25/16 03:40 06/24/16 06/25/16 06/26/16 05:59 05:59 05:59 Intake Total 2682.8 1054 Output Total 1100 1800 Balance 1582.8 -746 PT 14.4 SEC (12.0-15.0) 06/17/16 00:00 INR 1.13 (0.83-1.16) 06/17/16 00:00 - Time Spent With Patient Time Spent with Patient: greater than 35 minutes Time Spent with Patient: Greater than 35 minutes spent on this patients care, greater than 50% of time spent counseling, educating, and coordinating care regarding the above mentioned plan. - Physical Exam Constitutional: no apparent distress, not in pain, chronically ill appearing, No uncomfortable Ears, Nose, Mouth, Throat: other (Trach) Cardiovascular: other (Distant heart sounds), No systolic murmur, No irregularly irregular, No tachycardia, No edema Respiratory: no respiratory distress, no rales or rhonchi, clear to auscultation Gastrointestinal: normoactive bowel sounds, soft, non-tender abdomen, no palpable masses Neurologic: other (Mcpherson see a bilateral hands, motor strength 5/5 mailroom personnel, motor strength 3/5 bilateral lower extremities) Psychiatric: other (Responds well to questioning, follows commands, understands Kurdish) ICD10 Worksheet Patient Problems: Problems Problem Status Onset Spinal stenosis in cervical region Acute
[2016-06-25] MEDS: AMITRIPTYLINE HCL 10 MG TAB TUBE SCH (20:03)
[2016-06-25] MEDS: predniSONE 5 MG TAB TUBE SCH (20:03)
[2016-06-26 04:50] LABS: % IMMATURE GRANULYOCYTES 0.7 % (0.0-1.1); ABSOLUTE IMMATURE GRANULOCYTES 0.06 10^3/uL (0.00-0.10); ADD DIFF? NO; ADD MORPH? NO; ADD SCAN? NO; ATYPICAL LYMPHOCYTE FLAG 0 (0-99); FRAGMENT RBC FLAG 0 (0-99); HEMATOCRIT 31.4 % (40.0-51.0); LEFT SHIFT FLG 20 (0-99); LIPEMIA HEMOLYSIS FLAG 80 (0-99); MEAN CELL HEMOGLOBIN 27.6 pg (27.9-34.1); MEAN CELL HEMOGLOBIN CONCENTR. 31.8 g/dL (32.4-36.7); MEAN CELL VOLUME 86.7 fL (81.5-99.8); MEAN PLATELET VOLUME 10.7 fL (8.7-11.7); PLATELET CLUMPS FLAG 0 (0-99); PLATELET COUNT 157 10^3/uL (150-400); RED BLOOD CELL COUNT 3.62 10^6/uL (4.40-6.38); RED CELL DISTRIBUTION WIDTH 16.6 % (11.5-15.2)
[2016-06-26 04:56] LABS: POTASSIUM 4.3 mEq/L (3.5-5.2)
[2016-06-26 04:57] LABS: ANION GAP 6 mEq/L (8-16); CALCIUM 8.3 mg/dL (8.5-10.4); CARBON DIOXIDE 26 mEq/l (22-31); CHLORIDE 112 mEq/L (97-110); CREATININE 0.9 mg/dL (0.7-1.3); GLOMERULAR FILTRATION RATE > 60; GLUCOSE 112 mg/dL (70-100); SODIUM 144 mEq/L (134-144)
[2016-06-26] MEDS: DILTIAZEM 30 MG TAB TUBE SCH ×2 (05:20→21:22)
[2016-06-26] MEDS: GABAPENTIN 250 MG/5 ML 30 ML BOTTLE TUBE SCH ×2 (08:18→21:15)
[2016-06-26] MEDS: INSULIN REGULAR HUMAN 100 UNIT/ML SC SCH ×3 (08:18→22:02)
[2016-06-26] MEDS: FAMOTIDINE 20 MG TAB TUBE SCH ×2 (08:19→21:14)
[2016-06-26] MEDS: SENNOSIDES 17.6 MG/10 ML UDL TUBE SCH ×2 (08:19→21:13)
[2016-06-26] MEDS: LEFLUNOMIDE 20 MG TAB TUBE SCH (08:19)
[2016-06-26] MEDS: ENOXAPARIN 40 MG/0.4 ML SYR SC SCH (08:19)
[2016-06-26] MEDS: CLOPIDOGREL BISULFATE 75 MG TAB PO SCH (08:19)
[2016-06-26] MEDS: ATORVASTATIN CALCIUM 40 MG TAB TUBE SCH (08:19)
--- NOTE | 2016-06-26 10:04 | NEUSURGPN ---
Assessment/Plan: Assessment: 70 yo male sp sub-occipital craniectomy with C1-C4 laminectomy and posterior fusion Occiput-T1 POD #9 Plan - Arm and leg strength is improving -Trach in place -Hard collar to be worn when mobile/OOB with trach -continue neuro checks -Postop MRI C-spine demonstrates postoperative changes with decompression of upper cervical cord, there is evidence of a prior cerebellar stroke noted. CT with occluded bilateral vertebral arteries, but with evidence of collateral posterior flow. On Plavix. Appreciate neurology consultation and recommendations -Appreciate pulm/IM assistance in the management of this patient. -MRI brain- small cortical cerebellar infarct of uncertain age -Postop xrays completed, hardware looks good -optimize pain control -Wean IV medications as tolerated -PT/OT/DIRECTOR OF LITIGATION-CPM -DVT: TEDs, SCDs, Lovenox -anemia: received 2 unit PRBC 3 days ago-H/H 01/29 today -placement still pending approval regarding pulmonary status - likely will need LTAC. OK to transfer to floor once cleared by pulmonology/hospitalists -D/w Dr Reeves - he will call and speak to son tomorrow. D/w patient's son and he understands and is happy with plan. -Please call neurosurgery with any changes in neuro or motor exam Subjective: Pt resting in bed. Son at bedside. Patient non-verbal with trach. Son states he thinks his father is improving and is stronger. Objective: AAOx3 NAD VSS MAEx4 Trach in place Motor - 4/5 bilat handgrips, 4/5 biceps/triceps, wiggles toes, lifting legs off bed. Incision cdi sutures in place Urinary Catheter in Place: Yes Urinary Catheter Indication: Surgical Requirement Catheter Insertion Date: 06/14/16 - Physician Discussed Patient with Dr.: Reeves Neurosurgery Physical Exam - Vitals, I&O, Labs I and O 06/25/16 06/26/16 06/27/16 05:59 05:59 05:59 Intake Total 1054 1349 Output Total 1800 1100 Balance -746 249 Intake: Oral (ml) 0 IV Intake (ml) 0 IV Infused (ml) 11 Dexmedetomidine HCl 400 11 mcg In Ns 100 ml @ Per Protocol IV CONT ANH Rx#: [id number] Tube Feeding (ml) 743 924 Tube Flush (ml) 300 425 Output: Urine (ml) 1800 1100 Catheter 1800 1100 Other: Output Comment Catheter 3 cups Number of Stools Catheter 1 0 Vital Signs Temp Pulse Resp BP Pulse Ox 36.7 C 92 24 H 135/51 H 100 06/26/16 04:00 06/26/16 06:00 06/26/16 06:00 06/26/16 06:00 06/26/16 06:00 Laboratory Results 06/26/16 04:30 06/26/16 04:30 ICD10 Worksheet Patient Problems: Problems Problem Status Onset Spinal stenosis in cervical region Acute
--- NOTE | 2016-06-26 14:06 | PDINTPN ---
[employer] Fighter Progress Note Assessment/Plan: Assessment: 70 M with chronic RA on chronic steroids admitted for cervical spine surgery with cord compression, and failed extubation in OR thought to be a result of edema. He has been slow to wake, though support has been minimal. 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 He has also had issues with excess sedation. * Respiratory failure with hypoxia 2/2 above. After the OR he remained stable for several days in the ICU, and was extubated but lasted only a few hours so was subsequently re-intubated. After holding all sedating medications he appeared ready for extubation again and was much more interactive and alert, though required Bipap. However, after about 24 hours his O2 requirement increased and his CXR revealed complete white-out on the right. He was re- intubated and had bronchoscopy with significant improvement in his film. As a result, he underwent percutaneous tracheostomy 06/23. Tolerating trach collar, no ventilator for last 24 hours. Unable to tolerate finger occlusion due to breath stacking. * s/p C1-4 laminectomy with cord compression and treated with PSF. Stable from this perspective. Now on soft C-collar, working with PT/OT, strength improving. * Altered mental status- likely related to medications. Improved. * PNA- LLL. * RA- on chronic steroids. agree with maintaining home dose * HTN- Normotensive. * Afib- Remains in NSR on dilt drip. This may have been episodic, but may be PAF. Holding full anticoag until OK with neurosurgery * Hypernatremia: Slightly down today. Plan: Re-try PMSV trials today. Increase activity. Continue Invanz. Recheck CXR 06/26/16 14:10 06/26/16 14:13 06/26/16 14:13 Subjective: Strength a bit better. Pain still present but improved. Objective: Vital Signs Temp Pulse Resp BP Pulse Ox 36.7 C 92 24 H 135/51 H 100 06/26/16 04:00 06/26/16 06:00 06/26/16 06:00 06/26/16 06:00 06/26/16 06:00 Laboratory Results 06/26/16 04:30 06/26/16 04:30 06/25/16 06/26/16 06/27/16 05:59 05:59 05:59 Intake Total 1054 1349 Output Total 1800 1100 Balance -746 249 PT 14.4 SEC (12.0-15.0) 06/17/16 00:00 INR 1.13 (0.83-1.16) 06/17/16 00:00 Physical Exam - Physical Exam General Appearance: alert, no apparent distress EENT: normal ENT inspection Neck: other (C-collar. Trach site OK.), No normal inspection Respiratory: lungs clear, normal breath sounds Cardiac/Chest: regular rate, rhythm, No edema Abdomen: normal bowel sounds, non-tender, soft Skin: normal color, warm/dry Extremities: normal inspection Neuro/Psych: alert, normal mood/affect, oriented x 3 ICD10 Worksheet Patient Problems: Problems Problem Status Onset Spinal stenosis in cervical region Acute
--- NOTE | 2016-06-26 16:07 | HOSPPROG ---
Hospitalist Progress Note Assessment/Plan: Assessment: 70-year-old male presents with acute cerebellar CVA and stenosis with cord compression complicated by aspiration pneumonia acute pulmonary insufficiency Plan: 1. Severe cervical stenosis with cord compression s/p C1-C4 laminectomy - collar being addressed by NSGY 2. Acute pulmonary insufficiency. Evidenced by failure to wean from vent, likely multifactoral including aspiration pneumonia, suspected JUAN JOSE, airway edema , and mucus plugging - trach placement successful, PMV ordered, Dr. Upton adjusting vent settings 3. Acute toxic encephalopathy. Evidenced by global brain dysfunction characterized as somnolence and poor responsiveness, acute change from baseline , likely 2/2 combination of sedating Rx and infxn - off sedation, interacting appropriately 4. Aspiration PNA. S/p 8 days invanz, off 5. Chronic RA. Cont chronic steroids - cont prednisone home dose via Tube, placed on ISS 6. Cerebellar CVA. Acute vs. subacute - remain on single agent therapy (plavix) given recent surgery, may consider dual therapy in outpt setting w/ neuro f/u 7. 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 PVD. S/p stent, cont plavix/statin 9. Uncontrolled HTN. Cont on dilt PO 10. Atrial fibrillation. Paroxysmal, RVR,cont tube dilt 30mg q6 11. Acute Hypernatremia. 2/2 free water deficit, cont TF water 12. Acute metabolic acidosis. 2/2 lactic acid in setting of above, resolved Diet. TF PPx. High risk, SCDs Code. Full Dispo. ADD to LTAC 06/27, pending stabilization of above Subjective: patient is engaging well with therapy modalities Objective: Vital Signs Temp Pulse Resp BP Pulse Ox 36.7 C 92 24 H 135/51 H 100 06/26/16 04:00 06/26/16 06:00 06/26/16 06:00 06/26/16 06:00 06/26/16 06:00 Laboratory Results 06/26/16 04:30 06/26/16 04:30 06/25/16 06/26/16 06/27/16 05:59 05:59 05:59 Intake Total 1054 1349 Output Total 1800 1100 Balance -746 249 PT 14.4 SEC (12.0-15.0) 06/17/16 00:00 INR 1.13 (0.83-1.16) 06/17/16 00:00 - Physical Exam Constitutional: no apparent distress, appears nourished, not in pain, No uncomfortable Ears, Nose, Mouth, Throat: other ( trach in place) Cardiovascular: regular rate and rhythym, no murmur, rub, or gallop, No irregularly irregular, No edema Respiratory: no respiratory distress, no rales or rhonchi, clear to auscultation Gastrointestinal: normoactive bowel sounds, soft, non-tender abdomen, no palpable masses Neurologic: other ( 4/5 motor strength with his bilateral hands with slightly impaired grasping, 3/5 strength in his bilateral lower extremities) Psychiatric: not anxious, No agitated ICD10 Worksheet Patient Problems: Problems Problem Status Onset Spinal stenosis in cervical region Acute
[2016-06-26] MEDS: oxyCODONE IR 5 MG TAB TUBE PRN (21:13)
[2016-06-26] MEDS: AMITRIPTYLINE HCL 10 MG TAB TUBE SCH (21:14)
[2016-06-26] MEDS: predniSONE 5 MG TAB TUBE SCH (21:14)
[2016-06-27] MEDS: oxyCODONE IR 5 MG TAB TUBE PRN (04:19)
[2016-06-27] MEDS: DILTIAZEM 30 MG TAB TUBE SCH ×3 (04:19→07:36)
[2016-06-27 06:08] LABS: % IMMATURE GRANULYOCYTES 0.5 % (0.0-1.1); ABSOLUTE IMMATURE GRANULOCYTES 0.07 10^3/uL (0.00-0.10); ADD DIFF? NO; ADD MORPH? NO; ADD SCAN? NO; ATYPICAL LYMPHOCYTE FLAG 0 (0-99); FRAGMENT RBC FLAG 0 (0-99); HEMATOCRIT 38.6 % (40.0-51.0); HEMOGLOBIN 12.4 g/dL (13.7-17.5); LEFT SHIFT FLG 10 (0-99); LIPEMIA HEMOLYSIS FLAG 80 (0-99); MEAN CELL HEMOGLOBIN 27.9 pg (27.9-34.1); MEAN CELL HEMOGLOBIN CONCENTR. 32.1 g/dL (32.4-36.7); MEAN CELL VOLUME 86.9 fL (81.5-99.8); MEAN PLATELET VOLUME 10.7 fL (8.7-11.7); PLATELET CLUMPS FLAG 0 (0-99); PLATELET COUNT 190 10^3/uL (150-400); RED BLOOD CELL COUNT 4.44 10^6/uL (4.40-6.38); RED CELL DISTRIBUTION WIDTH 16.5 % (11.5-15.2)
[2016-06-27 06:39] LABS: ANION GAP 7 mEq/L (8-16); CALCIUM 8.6 mg/dL (8.5-10.4); CARBON DIOXIDE 27 mEq/l (22-31); CHLORIDE 109 mEq/L (97-110); GLOMERULAR FILTRATION RATE > 60; GLUCOSE 166 mg/dL (70-100); POTASSIUM 3.9 mEq/L (3.5-5.2); SODIUM 143 mEq/L (134-144)
[2016-06-27] MEDS: INSULIN REGULAR HUMAN 100 UNIT/ML SC SCH ×4 (07:35→18:10)
[2016-06-27] MEDS: GABAPENTIN 250 MG/5 ML 30 ML BOTTLE TUBE SCH ×4 (07:35→22:02)
--- NOTE | 2016-06-27 07:44 | NEUSURGPN ---
Date of Surgery: 06/18/16 Post Op Day: 9 Assessment/Plan: Assessment: 70 yo male sp sub-occipital craniectomy with C1-C4 laminectomy and posterior fusion Occiput-T1 Plan - Arm and leg strength is improving -Trach in place -Hard collar to be worn at all times, ok for short breaks while in bed -continue neuro checks -Postop MRI C-spine demonstrates postoperative changes with decompression of upper cervical cord, there is evidence of a prior cerebellar stroke noted. CT with occluded bilateral vertebral arteries, but with evidence of collateral posterior flow. On Plavix. Appreciate neurology consultation and recommendations -Appreciate pulm/IM assistance in the management of this patient. -MRI brain- small cortical cerebellar infarct of uncertain age -Postop xrays completed, hardware looks good -optimize pain control -limit narcotics when able -PT/OT/MEDICAL LIBRARY ASSISTANT-CPM -DVT: TEDs, SCDs, Lovenox -anemia: monitoring H&H, improved today -placement- likely will need LTAC. OK to transfer to floor once cleared by pulmonology/hospitalists -D/w Dr Reeves - he will call and speak to son tomorrow 06/28 -Please call neurosurgery with any changes in neuro or motor exam Subjective: No overnight issues. Pain controlled. Objective: AAOx3 NAD VSS MAEx4 Trach in place Motor - 4/5 bilat handgrips, 4/5 biceps/triceps, wiggles toes Incision cdi sutures in place Catheter Insertion Date: 06/14/16 - Physician Discussed Patient with Dr.: Reeves Neurosurgery Physical Exam - Vitals, I&O, Labs I and O 06/26/16 06/27/16 06/28/16 05:59 05:59 05:59 Intake Total 1349 1590 Output Total 1100 1400 Balance 249 190 Intake: Oral (ml) 0 IV Intake (ml) 0 Tube Feeding (ml) 924 1140 Tube Flush (ml) 425 450 Output: Urine (ml) 1100 1400 Catheter 1100 1100 Urinal 300 Other: Number of Stools Catheter 0 Urinal 0 Bladder Scan Volume (ml) Urinal 240 Vital Signs Temp Pulse Resp BP Pulse Ox 36.1 C 92 18 137/54 H 97 06/27/16 04:00 06/27/16 06:00 06/27/16 06:00 06/27/16 06:00 06/27/16 06:00 Laboratory Results 06/27/16 06:00 06/27/16 06:00 ICD10 Worksheet Patient Problems: Problems Problem Status Onset Spinal stenosis in cervical region Acute
[2016-06-27] MEDS: ENOXAPARIN 40 MG/0.4 ML SYR SC SCH (08:58)
[2016-06-27] MEDS: FAMOTIDINE 20 MG TAB TUBE SCH ×2 (08:58→22:02)
[2016-06-27] MEDS: LEFLUNOMIDE 20 MG TAB TUBE SCH (08:58)
[2016-06-27] MEDS: CLOPIDOGREL BISULFATE 75 MG TAB PO SCH (08:58)
[2016-06-27] MEDS: ATORVASTATIN CALCIUM 40 MG TAB TUBE SCH (08:58)
[2016-06-27] MEDS: SENNOSIDES 17.6 MG/10 ML UDL TUBE SCH ×2 (08:59→22:03)
[2016-06-27] MEDS ORDERED: DILTIAZEM 30 MG TAB TUBE SCH (09:37)
[2016-06-27] MEDS: oxyCODONE IR 5 MG TAB PO PRN ×2 (10:08→20:36)
--- NOTE | 2016-06-27 11:12 | PDINTPN ---
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 He has been slow to wake, though support has been minimal. 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 He has also had issues with excess sedation. * Respiratory failure with hypoxia 2/2 above. After the OR he remained stable for several days in the ICU, and was extubated but lasted only a few hours so was subsequently re-intubated. After holding all sedating medications he appeared ready for extubation again and was much more interactive and alert, though required Bipap. However, after about 24 hours his O2 requirement increased and his CXR revealed complete white-out on the right. He was re- intubated and had bronchoscopy with significant improvement in his film. As a result, he underwent percutaneous tracheostomy 06/23. Tolerating trach collar, no ventilator for last 48hours. Tolerated PMSV for just a few minutes. * s/p C1-4 laminectomy with cord compression and treated with PSF. Stable from this perspective. Now on soft C-collar, working with PT/OT, strength improving. * Altered mental status- likely related to medications. Improved. * PNA- LLL. * RA- on chronic steroids. agree with maintaining home dose * HTN- Normotensive. * Afib- Remains in NSR. * Hypernatremia: Normal today * Bowel Distension: Persists * Nutrition: On TF. ? some TF in ETT secretions? Plan: Will probably try to downsize trach today. Increase activity. Try lasix. Hold TF, try to advance FT post-pyloric. Reglan. Follow CXR 06/27/16 11:12 06/27/16 11:16 Subjective: Feels a bit stronger. Abdomen feels distended. Objective: Vital Signs Temp Pulse Resp BP Pulse Ox 36.8 C 106 H 23 H 144/49 H 97 06/27/16 08:00 06/27/16 10:00 06/27/16 10:00 06/27/16 10:00 06/27/16 10:00 Laboratory Results 06/27/16 06:00 06/27/16 06:00 06/26/16 06/27/16 06/28/16 05:59 05:59 05:59 Intake Total 1349 1590 Output Total 1100 1400 Balance 249 190 PT 14.4 SEC (12.0-15.0) 06/17/16 00:00 INR 1.13 (0.83-1.16) 06/17/16 00:00 CXR: RLL infiltrate/effusion. Images reviewed. Physical Exam - Physical Exam General Appearance: alert, no apparent distress EENT: normal ENT inspection Neck: normal inspection Respiratory: decreased breath sounds (right base), rhonchi (upper airway) Cardiac/Chest: regular rate, rhythm, No edema Abdomen: normal bowel sounds, non-tender Skin: normal color, warm/dry Extremities: normal inspection Neuro/Psych: alert, normal mood/affect, oriented x 3 ICD10 Worksheet Patient Problems: Problems Problem Status Onset Spinal stenosis in cervical region Acute
[2016-06-27] MEDS ORDERED: FUROSEMIDE 20 MG/2 ML VIAL IVP ONE (11:20)
[2016-06-27] MEDS: METOCLOPRAMIDE 10 MG/2 ML VIAL IVP SCH ×3 (12:09→23:58)
[2016-06-27 13:58] LABS: COLOR YELLOW; LEUKOCYTE ESTERASE,URINE NEGATIVE (NEGATIVE); NITRITE,URINE NEGATIVE (NEGATIVE)
[2016-06-27 14:16] LABS: BACTERIA TRACE /hpf (NONE SEEN)
--- NOTE | 2016-06-27 14:57 | HOSPPROG ---
Hospitalist Progress Note Assessment/Plan: INTERVAL SUMMARY & DAILY PROGRESS NOTE DATE OF ADMISSION:[birth year]69 INTERVAL DIAGNOSES 1. Severe cervical stenosis with cord compression 2. Acute pulmonary insufficiency 3. Acute toxic encephalopathy 4. aspiration pneumonia 5. acute pneumothorax 6. worsening leukocytosis 7. Chronic rheumatoid arthritis 8. cerebellar cerebrovascular accident 9. Bilateral vertebral artery occlusion 10. Chronic peripheral vascular disease 11. acute paroxysmal atrial fibrillation 12. acute hyponatremia 13. Acute metabolic acidosis 14. Acute ileus CONSULTATIONS neurosurgery is primary team, pulmonary Critical Care PROCEDURES / IMAGING C1-C4 laminectomy, intubation and bronchoscopy, tracheostomy CHIEF COMPLAINT acute on chronic weakness SUBJECTIVE patient has had a worsening cough, tube feed residuals HOSPITAL COURSE BY PROBLEM The patient presented through the neurosurgery clinic with acute on chronic worsening of paresthesias and paresis, secondary to cervical stenosis with cord compression, resulting in vertebral artery occlusion secondary to external pressure, with acute versus subacute cerebellar infarction. The patient underwent laminectomy and experienced postoperative pulmonary insufficiency, prolonged weaning from vent, aspiration pneumonia toxic encephalopathy. He has recovered quite well from these issues and tracheostomy was placed during this interval. Patient has been awake and working with therapy modalities. On the day of this summary, the patient's white blood cell count has been rising, his cough has been worsening, his tube feeds have had residuals. We decided to place a nasogastric small-bowel feeding tube in attempts to reduce his risk of aspirating, but we have incidentally found an ileus as well as right-sided pneumothorax. We will hold his tube feeds, monitor for resumption of normal bowel function before resuming feedings. Assessment: 70-year-old male presents with acute cerebellar CVA and stenosis with cord compression complicated by aspiration pneumonia acute pulmonary insufficiency, c/b ileus, pneumothorax Plan: 1. Severe cervical stenosis with cord compression s/p C1-C4 laminectomy - collar being addressed by NSGY, attempting to get better fit through Manager Risk, therapies involved 2. Acute pulmonary insufficiency. Evidenced by failure to wean from vent, likely multifactoral including aspiration pneumonia, suspected JUAN JOSE, airway edema , and mucus plugging - trach placement successful on 06/23, PMV ordered, planning for downsizing 1 week out from placement 3. Acute toxic encephalopathy. 2/2 combination of sedating Rx and infxn, resolved 4. Aspiration PNA. S/p 8 days invanz, off Abx, CXR today w/o focal infiltrate but sputum cx w/ obvious tube feeds - cont to monitor for signs of recurrent asp PNA (o2 requirements, RR, WBC, cough) - if we re-treat for asp PNA, will require HCAP Rx (Vanco/Zosyn) 5. Chronic RA. Cont chronic steroids - cont prednisone home dose via Tube, placed on ISS 6. Cerebellar CVA. Acute vs. subacute - remain on single agent therapy (plavix) given recent surgery, may consider dual therapy in outpt setting w/ neuro f/u 7. 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 PVD. S/p stent, cont plavix/statin, dorsalis pedis pulses dopplered today 9. Uncontrolled HTN. Cont on dilt PO 10. Atrial fibrillation. Paroxysmal, RVR, intermittently present on tele ( personally interpreted), increased dilt to 45mg tube q6 - holding on systemic anticoagulation given recent NSGY, should be reconsidered in outpt setting s/p cards f/u appt and possible linq recorder 11. Acute Hypernatremia. 2/2 free water deficit, check labs daily, give d5w if climbing 12. Acute metabolic acidosis. 2/2 lactic acid in setting of above, resolved 13. Pneumothorax. Acute, new problem, further w/u indicated. Noted today on abd x-ray, getting chest x-ray to measure extent - keep NPO in case chest tube needed 14. Ileus. Acute, present on x-ray, has been having small BMs w/ TF residuals - stop TF - NGT placed to distal stomach - depending on bowel movements over next 24hrs, consider scheduled reglan IV 15. Leukocytosis. Acute worsening, new problem, further w/u indicated. Unclear if 2/2 recurrent asp PNA - sent UA, neg - LE US w/o DVT - d/w Dr. Upton on rounds, rec we hold on ABx, monitor WBC Diet. NPO PPx. High risk, lovenox 40 Code. Full Dispo. ADD to LTAC unclear, pending stabilization of above, as well as Medicaid approval. Subjective: Patient with increased cough, left lower extremity pain Objective: Vital Signs Temp Pulse Resp BP Pulse Ox 36.9 C 118 H 30 H 143/45 H 95 06/27/16 12:00 06/27/16 14:00 06/27/16 14:00 06/27/16 14:00 06/27/16 14:00 Microbiology 06/27/16 11:15 - Final Sputum, Induced/Suctioned Laboratory Results 06/27/16 06:00 06/27/16 06:00 06/26/16 06/27/16 06/28/16 05:59 05:59 05:59 Intake Total 1349 1590 Output Total 1100 1400 Balance 249 190 PT 14.4 SEC (12.0-15.0) 06/17/16 00:00 INR 1.13 (0.83-1.16) 06/17/16 00:00 - Physical Exam Constitutional: chronically ill appearing, uncomfortable, No no apparent distress ( mild), No not in pain Cardiovascular: systolic murmur ( 1/6 systolic at the sternum), irregularly irregular, tachycardia, other ( faintly palpable dorsalis pedis on the left) Respiratory: inspiratory crackles ( bilateral bases), No reduced air movement, No expiratory wheeze, No bronchial breath sounds, No respiratory distress Gastrointestinal: tenderness ( mild in the left abdomen), No normoactive bowel sounds ( tinkling bowel sounds), No guarding, No distension Skin: other ( cool skin bilateral lower extremities distal to the knees, warm approximately) Psychiatric: not anxious, other ( following commands, responding to verbal stimuli, speaking in full Kurdish sentences), No agitated ICD10 Worksheet Patient Problems: Problems Problem Status Onset Spinal stenosis in cervical region Acute
[2016-06-27] MEDS ORDERED: DILTIAZEM TUBE SCH (15:00)
[2016-06-27] MEDS: DILTIAZEM 25 MG/5 ML VIAL IVP SCH ×2 (17:57→23:58)
--- NOTE | 2016-06-27 20:15 | HOSPPROG ---
Hospitalist Progress Note Assessment/Plan: Called for Fever -101.2 - new - review of chart guides towards treatment of HCAP - blood cultures now (none since 06/16) - margaret/mayo Objective: Vital Signs Temp Pulse Resp BP Pulse Ox 37.6 C 109 H 31 H 116/63 93 06/27/16 18:00 06/27/16 18:00 06/27/16 18:00 06/27/16 18:00 06/27/16 18:00 Microbiology 06/27/16 11:15 - Final Sputum, Induced/Suctioned Laboratory Results 06/27/16 06:00 06/27/16 06:00 06/26/16 06/27/16 06/28/16 05:59 05:59 05:59 Intake Total 1349 1590 260 Output Total 1100 1400 332 Balance 249 190 -72 PT 14.4 SEC (12.0-15.0) 06/17/16 00:00 INR 1.13 (0.83-1.16) 06/17/16 00:00 ICD10 Worksheet Patient Problems: Problems Problem Status Onset Spinal stenosis in cervical region Acute
[2016-06-27] MEDS: ACETAMINOPHEN 650 MG/20.3 ML UDCUP TUBE PRN (20:31)
[2016-06-27] MEDS: predniSONE 5 MG TAB TUBE SCH (20:32)
[2016-06-27] MEDS: AMITRIPTYLINE HCL 10 MG TAB TUBE SCH (22:02)
[2016-06-27] MEDS: VANCOMYCIN HCL/NORMAL SALINE 250 ML IV SCH (22:05)
[2016-06-27] MEDS: PIPERACILLIN/TAZO 3.375 GM/DEX 50 ML IV SCH (23:58)
[2016-06-28] MEDS: INSULIN REGULAR HUMAN 100 UNIT/ML SC SCH ×4 (01:16→18:26)
[2016-06-28 05:28] LABS: % IMMATURE GRANULYOCYTES 0.4 % (0.0-1.1); ABSOLUTE IMMATURE GRANULOCYTES 0.05 10^3/uL (0.00-0.10); ADD DIFF? NO; ADD MORPH? NO; ADD SCAN? NO; ATYPICAL LYMPHOCYTE FLAG 0 (0-99); FRAGMENT RBC FLAG 0 (0-99); HEMATOCRIT 33.8 % (40.0-51.0); HEMOGLOBIN 10.7 g/dL (13.7-17.5); LEFT SHIFT FLG 30 (0-99); LIPEMIA HEMOLYSIS FLAG 80 (0-99); MEAN CELL HEMOGLOBIN 27.5 pg (27.9-34.1); MEAN CELL HEMOGLOBIN CONCENTR. 31.7 g/dL (32.4-36.7); MEAN CELL VOLUME 86.9 fL (81.5-99.8); MEAN PLATELET VOLUME 10.9 fL (8.7-11.7); PLATELET CLUMPS FLAG 0 (0-99); PLATELET COUNT 151 10^3/uL (150-400); RED BLOOD CELL COUNT 3.89 10^6/uL (4.40-6.38); RED CELL DISTRIBUTION WIDTH 16.7 % (11.5-15.2)
[2016-06-28 05:31] LABS: ANION GAP 9 mEq/L (8-16); CALCIUM 8.5 mg/dL (8.5-10.4); CARBON DIOXIDE 28 mEq/l (22-31); CHLORIDE 110 mEq/L (97-110); CREATININE 1.2 mg/dL (0.7-1.3); GLOMERULAR FILTRATION RATE 60; GLUCOSE 118 mg/dL (70-100); POTASSIUM 3.8 mEq/L (3.5-5.2); SODIUM 147 mEq/L (134-144)
[2016-06-28] MEDS: DILTIAZEM 25 MG/5 ML VIAL IVP SCH ×3 (06:36→18:13)
[2016-06-28] MEDS: PIPERACILLIN/TAZO 3.375 GM/DEX 50 ML IV SCH ×3 (06:36→18:12)
[2016-06-28] MEDS: METOCLOPRAMIDE 10 MG/2 ML VIAL IVP SCH ×3 (06:36→18:13)
--- NOTE | 2016-06-28 09:03 | NEUSURGPN ---
Assessment/Plan: Assessment: 70 yo male sp sub-occipital craniectomy with C1-C4 laminectomy and posterior fusion Occiput-T1 Plan - Arm and leg strength is improving -Trach in place -Holding tube feeds d/t ileus -Hard collar to be worn at all times, ok for short breaks while in bed. Head Of Training And Development to work on adjusting. -continue neuro checks -Postop MRI C-spine demonstrates postoperative changes with decompression of upper cervical cord, there is evidence of a prior cerebellar stroke noted. CT with occluded bilateral vertebral arteries, but with evidence of collateral posterior flow. On Plavix. Appreciate neurology consultation and recommendations -Appreciate pulm/IM assistance in the management of this patient. Febrile overnight, blood cx pending. UA looks ok. -MRI brain- small cortical cerebellar infarct of uncertain age -Postop xrays completed, hardware looks good -optimize pain control -limit narcotics -PT/OT/REFRIGERATING TECHNICIAN-CPM -DVT: TEDs, SCDs, Lovenox -anemia: monitoring H&H, trending down from yesterday 10.7/33.8 -placement- likely will need LTAC. OK to transfer to floor once cleared by pulmonology/hospitalists -D/w Dr Reeves - he will call and speak to son today. Phone # given. Son understands plan. -Please call neurosurgery with any changes in neuro or motor exam Subjective: Pt on bedside commode. Passing gas. Family at bedside. Objective: Awake and alert Trach in place MAEx4 Follows all commands Motor 4/5 BUE Motor 4+ to 5-/5 BLE Incision cdi sutures in place C collar on Urinary Catheter in Place: Yes Urinary Catheter Indication: Surgical Requirement Catheter Insertion Date: 06/14/16 - Physician Discussed Patient with : Leandro Neurosurgery Physical Exam - Vitals, I&O, Labs I and O 06/27/16 06/28/16 06/29/16 05:59 05:59 05:59 Intake Total 1590 640 Output Total 1400 1082 Balance 190 -442 Intake: IV Intake (ml) 380 Tube Feeding (ml) 1140 185 Tube Flush (ml) 450 75 Output: Urine (ml) 1400 1082 Catheter 1100 1082 Urinal 300 NG Drainage (ml) 0 Small Bore (5-12 Lithuanian) 0 Non-weighted Right Naris Duodenum Other: Output Comment Bedside Commode per pt void present, DEBBI d/t stool Catheter straight cath Number of Voids Bedside Commode 1 Number of Stools Bedside Commode 1 Urinal 0 Bladder Scan Volume (ml) Catheter 450 Urinal 240 Post Void Residual Scan Volume (ml) Bedside Commode 43 Catheter 0 Microbiology 06/27/16 11:15 - Final Sputum, Induced/Suctioned Vital Signs Temp Pulse Resp BP Pulse Ox 36.7 C 95 20 129/56 H 95 06/28/16 00:00 06/28/16 06:36 06/28/16 06:00 06/28/16 06:00 06/28/16 06:00 Laboratory Results 06/28/16 05:05 06/28/16 05:05 ICD10 Worksheet Patient Problems: Problems Problem Status Onset Spinal stenosis in cervical region Acute
[2016-06-28] MEDS: LEFLUNOMIDE 20 MG TAB TUBE SCH (09:39)
[2016-06-28] MEDS: SENNOSIDES 17.6 MG/10 ML UDL TUBE SCH ×3 (09:39→20:32)
[2016-06-28] MEDS: CLOPIDOGREL BISULFATE 75 MG TAB PO SCH (09:39)
[2016-06-28] MEDS: FAMOTIDINE 20 MG TAB TUBE SCH ×2 (09:39→20:31)
[2016-06-28] MEDS: ENOXAPARIN 40 MG/0.4 ML SYR SC SCH (09:39)
[2016-06-28] MEDS: GABAPENTIN 250 MG/5 ML 30 ML BOTTLE TUBE SCH ×3 (09:40→20:32)
[2016-06-28] MEDS: ATORVASTATIN CALCIUM 40 MG TAB TUBE SCH (09:42)
[2016-06-28] MEDS: oxyCODONE IR 5 MG TAB PO PRN ×2 (11:58→20:33)
--- NOTE | 2016-06-28 12:33 | PDINTPN ---
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 He has been slow to wake, though support has been minimal. 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 He has also had issues with excess sedation. * Respiratory failure with hypoxia 2/2 above. After the OR he remained stable for several days in the ICU, and was extubated but lasted only a few hours so was subsequently re-intubated. After holding all sedating medications he appeared ready for extubation again and was much more interactive and alert, though required Bipap. However, after about 24 hours his O2 requirement increased and his CXR revealed complete white-out on the right. He was re- intubated and had bronchoscopy with significant improvement in his film. As a result, he underwent percutaneous tracheostomy 06/23. Tolerating trach collar, no ventilator for last 72hours. Tolerating PMSV much better today. * s/p C1-4 laminectomy with cord compression and treated with PSF. Stable from this perspective. Now on soft C-collar, working with PT/OT, strength improving generally, but no better today per patient. * Altered mental status- likely related to medications. Improved. * PNA- LLL. * RA- on chronic steroids. Agree with maintaining home dose * HTN- Normotensive. * Afib- Remains in NSR. * Hypernatremia: Normal today * Bowel Distension: Persists * Nutrition: On TF. ? aspiration, so held. Tube now advanced to jejunum Plan: Will probably try to downsize trach today. Increase activity. Resume TF now that tube is in jejunum. Follow CXR 06/28/16 12:43 Subjective: Weak with attempts to stand today. Denies dyspnea. Objective: Vital Signs Temp Pulse Resp BP Pulse Ox 36.8 C 101 H 30 H 129/61 H 90 L 06/28/16 08:00 06/28/16 10:00 06/28/16 10:00 06/28/16 10:00 06/28/16 10:00 Microbiology 06/27/16 11:15 - Final Sputum, Induced/Suctioned Laboratory Results 06/28/16 05:05 06/28/16 05:05 06/27/16 06/28/16 06/29/16 05:59 05:59 05:59 Intake Total 1590 640 Output Total 1400 1082 Balance 190 -442 PT 14.4 SEC (12.0-15.0) 06/17/16 00:00 INR 1.13 (0.83-1.16) 06/17/16 00:00 Sputum GS: MOF. Physical Exam - Physical Exam General Appearance: alert, no apparent distress EENT: normal ENT inspection Neck: normal inspection, other (c-collar. Trach OK.) Respiratory: lungs clear, normal breath sounds Cardiac/Chest: edema, tachycardia Abdomen: normal bowel sounds, non-tender, soft Skin: normal color, warm/dry Extremities: non-tender Neuro/Psych: alert, normal mood/affect, oriented x 3, motor weakness ICD10 Worksheet Patient Problems: Problems Problem Status Onset Spinal stenosis in cervical region Acute
--- NOTE | 2016-06-28 12:46 | HOSPPROG ---
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13 (0.83-1.16) 06/17/16 00:00 - Physical Exam Constitutional: no apparent distress, appears nourished Ears, Nose, Mouth, Throat: other (c collar; NG tube; trach collar) Cardiovascular: no murmur, rub, or gallop, irregularly irregular Respiratory: no respiratory distress, no rales or rhonchi, clear to auscultation Gastrointestinal: normoactive bowel sounds, soft, non-tender abdomen, no palpable masses ICD10 Worksheet Patient Problems: Problems Problem Status Onset Spinal stenosis in cervical region Acute
[2016-06-28] MEDS ORDERED: LIDOCAINE 2% JELLY 5 ML TUBE ONE (13:36)
[2016-06-28] MEDS: AMITRIPTYLINE HCL 10 MG TAB TUBE SCH (20:31)
[2016-06-28] MEDS: predniSONE 5 MG TAB TUBE SCH (20:32)
[2016-06-29] MEDS: VANCOMYCIN HCL/NORMAL SALINE 250 ML IV SCH ×2 (00:23→20:22)
[2016-06-29] MEDS: PIPERACILLIN/TAZO 3.375 GM/DEX 50 ML IV SCH ×5 (00:24→23:58)
[2016-06-29] MEDS: DILTIAZEM 25 MG/5 ML VIAL IVP SCH ×5 (00:25→23:58)
[2016-06-29] MEDS: METOCLOPRAMIDE 10 MG/2 ML VIAL IVP SCH ×5 (00:25→23:57)
[2016-06-29] MEDS: INSULIN REGULAR HUMAN 100 UNIT/ML SC SCH ×4 (00:26→17:12)
[2016-06-29] MEDS: oxyCODONE IR 5 MG TAB PO PRN (02:00)
[2016-06-29 08:21] LABS: ANION GAP 12 mEq/L (8-16); CARBON DIOXIDE 24 mEq/l (22-31); CHLORIDE 112 mEq/L (97-110); CREATININE 0.9 mg/dL (0.7-1.3); GLOMERULAR FILTRATION RATE > 60; GLUCOSE 138 mg/dL (70-100); SODIUM 148 mEq/L (134-144)
--- NOTE | 2016-06-29 08:21 | NEUSURGPN ---
Assessment/Plan: Assessment: 70 yo male sp sub-occipital craniectomy with C1-C4 laminectomy and posterior fusion Occiput-T1 Plan - Arm and leg strength is improving daily. Patient able to speak somewhat today , is smiling. -Trach in place -Diet per hospitalists/crit care -Hard collar to be worn at all times, ok for short breaks while in bed. -continue neuro checks -Postop MRI C-spine demonstrates postoperative changes with decompression of upper cervical cord, there is evidence of a prior cerebellar stroke noted. CT with occluded bilateral vertebral arteries, but with evidence of collateral posterior flow. On Plavix. Appreciate neurology consultation and recommendations -Appreciate pulm/IM assistance in the management of this patient. Fevers improved. -MRI brain- small cortical cerebellar infarct of uncertain age -Postop xrays completed, hardware looks good -optimize pain control -limit narcotics -PT/OT/INTERIOR HORTICULTURIST-CPM -DVT: TEDs, SCDs, Lovenox -anemia: monitoring H&H, has been relatively stable. -placement- likely will need LTAC. OK to transfer to floor once cleared by pulmonology/hospitalists -Pt seen by Dr Reeves as well. -Please call neurosurgery with any changes in neuro or motor exam Subjective: Pt resting in bed. Son at bedside. They think he is improving. Patient smiling at me. Objective: AAOx3 NAD VSS MAEx4 Motor 5-/5 BUE/BLE +LT C collar on trach Incision dressed Urinary Catheter in Place: Yes Urinary Catheter Indication: Surgical Requirement Catheter Insertion Date: 06/14/16 - Physician Discussed Patient with Dr.: Reeves Patient Seen by : [facility] Neurosurgery Physical Exam - Vitals, I&O, Labs I and O 06/28/16 06/29/16 06/30/16 05:59 05:59 05:59 Intake Total 640 1097 Output Total 1082 1250 Balance -442 -153 Weight 47.1 kg Intake: IV Intake (ml) 380 499 Tube Feeding (ml) 185 398 Tube Flush (ml) 75 200 Output: Urine (ml) 1082 950 Catheter 1082 700 Urinal 250 Urine/Stool Mix (ml) 300 Bedside Commode 300 NG Drainage (ml) 0 Small Bore (5-12 Swedish) 0 Non-weighted Right Naris Duodenum Other: Output Comment Bedside Commode per pt void present, DEBBI d/t stool Catheter straight cath Number of Voids Bedside Commode 1 1 Catheter 1 Number of Stools Bedside Commode 1 2 Bladder Scan Volume (ml) Catheter 450 Urinal 330 Post Void Residual Scan Volume (ml) Bedside Commode 43 Catheter 0 Microbiology 06/27/16 11:15 - Final Sputum, Induced/Suctioned Vital Signs Temp Pulse Resp BP Pulse Ox 37.6 C 97 24 H 119/64 95 06/28/16 22:00 06/29/16 06:00 06/29/16 06:00 06/29/16 06:00 06/29/16 06:00 Laboratory Results 06/28/16 05:05 ICD10 Worksheet Patient Problems: Problems Problem Status Onset Spinal stenosis in cervical region Acute
[2016-06-29 08:29] LABS: POTASSIUM 2.7 mEq/L (3.5-5.2)
[2016-06-29] MEDS: FAMOTIDINE 20 MG TAB TUBE SCH ×2 (09:07→20:20)
[2016-06-29] MEDS: ATORVASTATIN CALCIUM 40 MG TAB TUBE SCH (09:07)
[2016-06-29] MEDS: LEFLUNOMIDE 20 MG TAB TUBE SCH (09:08)
[2016-06-29] MEDS: GABAPENTIN 250 MG/5 ML 30 ML BOTTLE TUBE SCH ×3 (09:08→21:45)
[2016-06-29] MEDS: ENOXAPARIN 40 MG/0.4 ML SYR SC SCH (09:08)
[2016-06-29] MEDS: CLOPIDOGREL BISULFATE 75 MG TAB TUBE SCH (09:08)
[2016-06-29] MEDS ORDERED: PROTOCOL POTASSIUM 1 DOSE MISC PRN (09:34)
--- NOTE | 2016-06-29 10:05 | PDINTPN ---
Special Needs Nanny Progress Note Assessment/Plan: Assessment: 70 M with chronic RA on chronic steroids admitted for cervical spine surgery with cord compression, and failed extubation in OR thought to be a result of edema. He has been slow to wake, though support has been minimal. 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 He has also had issues with excess sedation. * Respiratory failure with hypoxia 2/2 above. After the OR he remained stable for several days in the ICU, and was extubated but lasted only a few hours so was subsequently re-intubated. After holding all sedating medications he appeared ready for extubation again and was much more interactive and alert, though required Bipap. However, after about 24 hours his O2 requirement increased and his CXR revealed complete white-out on the right. He was re- intubated and had bronchoscopy with significant improvement in his film. As a result, he underwent percutaneous tracheostomy 06/23. Tolerating trach collar, no ventilator for last 72 hours. Tolerating PMSV much better today. * s/p C1-4 laminectomy with cord compression and treated with PSF. Stable from this perspective. Now on soft C-collar, working with PT/OT, strength improving slowly. * Altered mental status- likely related to medications. Improved. * PNA- LLL. * RA- on chronic steroids. Agree with maintaining home dose * HTN- Normotensive. * Afib- Remains in NSR with frequent PACs * Hypernatremia: Increased today * Bowel Distension: Persists. * Nutrition: On TF. ? aspiration, tube now advanced to jejunum, feeding resumed. Plan: Try to change to soft collar. Increase activity. Follow CXR. Repeat Lasix. Hopefully can remove trach in the next 24-48 hours, then to SNF or rehab placement. 06/29/16 11:32 Subjective: Feels stronger. Still with weak cough. Objective: Vital Signs Temp Pulse Resp BP Pulse Ox 36.8 C 89 19 141/79 H 97 06/29/16 08:00 06/29/16 08:00 06/29/16 08:00 06/29/16 08:00 06/29/16 08:00 Microbiology 06/27/16 11:15 - Final Sputum, Induced/Suctioned Laboratory Results 06/28/16 05:05 06/29/16 07:40 06/28/16 06/29/16 06/30/16 05:59 05:59 05:59 Intake Total 640 1097 Output Total 1082 1250 Balance -442 -153 PT 14.4 SEC (12.0-15.0) 06/17/16 00:00 INR 1.13 (0.83-1.16) 06/17/16 00:00 CXR: Persistent basilar infiltrates/effuions. Bowel distension. Images reviewed. Sputum Cx: MOF. Physical Exam - Physical Exam General Appearance: alert, no apparent distress EENT: normal ENT inspection Neck: other (c-collar. Trach OK.) Respiratory: lungs clear, normal breath sounds Cardiac/Chest: irregularly irregular, No edema Abdomen: normal bowel sounds, non-tender, soft Skin: normal color, warm/dry Extremities: non-tender Neuro/Psych: alert, normal mood/affect, oriented x 3 ICD10 Worksheet Patient Problems: Problems Problem Status Onset Spinal stenosis in cervical region Acute
[2016-06-29] MEDS: POTASSIUM Cl (KCl) 100 ML IV SCH ×6 (10:07→21:50)
[2016-06-29] MEDS: SENNOSIDES 17.6 MG/10 ML UDL TUBE SCH ×2 (10:09→20:21)
[2016-06-29 11:20] LABS: ANION GAP 7 mEq/L (8-16); CALCIUM 8.5 mg/dL (8.5-10.4); CARBON DIOXIDE 28 mEq/l (22-31); CHLORIDE 110 mEq/L (97-110); CREATININE 1.1 mg/dL (0.7-1.3); GLOMERULAR FILTRATION RATE > 60; GLUCOSE 128 mg/dL (70-100); POTASSIUM 3.8 mEq/L (3.5-5.2); SODIUM 145 mEq/L (134-144)
[2016-06-29] MEDS ORDERED: FUROSEMIDE 20 MG/2 ML VIAL IVP ONE (11:34)
[2016-06-29] MEDS: oxyCODONE IR 5 MG TAB TUBE PRN ×3 (15:00→22:20)
--- NOTE | 2016-06-29 16:01 | HOSPPROG ---
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 # PVD/stent - plavix/statin # htn - dilt # ?ptx - not seen on CXR ## discussed with Dr Upton on ICU rounds video swallow reviewed CXR personally reviewed Subjective: slightly confused at times per his son - he thought his other son was present Objective: Vital Signs Temp Pulse Resp BP Pulse Ox 36.3 C 94 29 H 147/62 H 96 06/29/16 12:00 06/29/16 14:00 06/29/16 14:00 06/29/16 14:00 06/29/16 14:00 Microbiology 06/27/16 11:15 - Final Sputum, Induced/Suctioned Laboratory Results 06/28/16 05:05 06/29/16 10:50 06/28/16 06/29/16 06/30/16 05:59 05:59 05:59 Intake Total 640 1097 Output Total 1082 1250 520 Balance -442 -153 -520 PT 14.4 SEC (12.0-15.0) 06/17/16 00:00 INR 1.13 (0.83-1.16) 06/17/16 00:00 - Physical Exam Ears, Nose, Mouth, Throat: other (soft collar) Cardiovascular: regular rate and rhythym, no murmur, rub, or gallop Respiratory: no respiratory distress, no rales or rhonchi, clear to auscultation Gastrointestinal: normoactive bowel sounds, soft, non-tender abdomen, no palpable masses ICD10 Worksheet Patient Problems: Problems Problem Status Onset Spinal stenosis in cervical region Acute
[2016-06-29 17:57] LABS: POTASSIUM 3.7 mEq/L (3.5-5.2)
[2016-06-29] MEDS: ACETAMINOPHEN 650 MG/20.3 ML UDCUP TUBE PRN ×2 (19:19→23:57)
[2016-06-29] MEDS: AMITRIPTYLINE HCL 10 MG TAB TUBE SCH (20:21)
[2016-06-29] MEDS: predniSONE 5 MG TAB TUBE SCH (20:21)
[2016-06-29] MEDS ORDERED: METOPROLOL TARTRATE 25 MG TAB PO SCH (21:00)
[2016-06-29] MEDS ORDERED: LORazepam 2 MG/ML INJ IVP ONE (22:44)
[2016-06-29] MEDS ORDERED: LORazepam 2 MG/ML INJ ONE (22:47)
[2016-06-30] MEDS ORDERED: LORazepam 2 MG/ML INJ IVP PRN (01:05)
--- NOTE | 2016-06-30 01:15 | HOSPPROG ---
Hospitalist Progress Note Assessment/Plan: Cross cover note: Called by nursing that patient becoming increasingly confused and agitated over the evening--pulling at tubes and nearly falling out of bed. Roll belt, 2 point restraints initiated, given ativan 1mg with some initial improvement, however shortly thereafter called again for recurrent agitation/confusion/fighting restraints, thinks he is in [place], trying to get out of bed. Reviewed labs/ vitals and daily notes--patient with recently diagnosed aspiration pna, on abx now, but otherwise seems to be improving, vitals stable, labs without major derangements. Given risk of harming self, will add precedex, staff to continue attempting 1 on 1 interaction to limit use of restraints. Will continue to monitor. Objective: Vital Signs Temp Pulse Resp BP Pulse Ox 36.9 C 67 20 120/54 L 97 06/29/16 20:00 06/29/16 22:00 06/29/16 22:00 06/29/16 22:00 06/29/16 22:00 Microbiology 06/27/16 11:15 - Final Sputum, Induced/Suctioned Laboratory Results 06/28/16 05:05 06/29/16 17:30 06/28/16 06/29/16 06/30/16 05:59 05:59 05:59 Intake Total 640 1097 1164 Output Total 1082 1250 1345 Balance -442 -153 -181 PT 14.4 SEC (12.0-15.0) 06/17/16 00:00 INR 1.13 (0.83-1.16) 06/17/16 00:00 ICD10 Worksheet Patient Problems: Problems Problem Status Onset Spinal stenosis in cervical region Acute - ICD10 Problem Qualifiers (1) Spinal stenosis in cervical region
[2016-06-30] MEDS ORDERED: DEXMEDETOMIDINE HCL 400 MCG in NS 100 ML IV SCH (01:30)
[2016-06-30] MEDS: DILTIAZEM 25 MG/5 ML VIAL IVP SCH ×3 (02:30→11:50)
[2016-06-30] MEDS: INSULIN REGULAR HUMAN 100 UNIT/ML SC SCH ×4 (02:31→18:00)
[2016-06-30] MEDS: POTASSIUM Cl (KCl) 100 ML IV SCH ×4 (03:03→05:18)
[2016-06-30] MEDS: PIPERACILLIN/TAZO 3.375 GM/DEX 50 ML IV SCH ×3 (05:18→16:57)
[2016-06-30] MEDS: METOCLOPRAMIDE 10 MG/2 ML VIAL IVP SCH (05:19)
[2016-06-30 05:38] LABS: % IMMATURE GRANULYOCYTES 0.3 % (0.0-1.1); ABSOLUTE IMMATURE GRANULOCYTES 0.02 10^3/uL (0.00-0.10); ADD DIFF? NO; ADD MORPH? NO; ADD SCAN? NO; ATYPICAL LYMPHOCYTE FLAG 10 (0-99); FRAGMENT RBC FLAG 0 (0-99); HEMATOCRIT 27.9 % (40.0-51.0); LEFT SHIFT FLG 0 (0-99); LIPEMIA HEMOLYSIS FLAG 80 (0-99); MEAN CELL HEMOGLOBIN 27.6 pg (27.9-34.1); MEAN CELL HEMOGLOBIN CONCENTR. 32.3 g/dL (32.4-36.7); MEAN CELL VOLUME 85.6 fL (81.5-99.8); PLATELET CLUMPS FLAG 0 (0-99); PLATELET COUNT 141 10^3/uL (150-400); RED BLOOD CELL COUNT 3.26 10^6/uL (4.40-6.38); RED CELL DISTRIBUTION WIDTH 16.6 % (11.5-15.2)
[2016-06-30 05:55] LABS: ANION GAP 5 mEq/L (8-16); CALCIUM 7.7 mg/dL (8.5-10.4); CARBON DIOXIDE 26 mEq/l (22-31); CHLORIDE 109 mEq/L (97-110); GLOMERULAR FILTRATION RATE > 60; GLUCOSE 162 mg/dL (70-100); SODIUM 140 mEq/L (134-144)
[2016-06-30 07:31] LABS: POTASSIUM 4.7 mEq/L (3.5-5.2)
[2016-06-30] MEDS ORDERED: PROTOCOL POTASSIUM 1 DOSE MISC PRN (07:52)
--- NOTE | 2016-06-30 08:37 | SOAPPROG ---
SOAP Progress Note Assessment/Plan: Assessment: Assessment: 70 yo male sp sub-occipital craniectomy with C1-C4 laminectomy and posterior fusion Occiput-T1 Plan -difficult night with some agitation and confusion requiring precedex, seems to have resolved this am and now following commands weakly - Arm and leg strength is improving daily. Was able stand for a few brief seconds with PT yesterday. Patient mumbling this am -Trach in place -Diet per hospitalists/crit care -Hard collar to be worn at all times, ok for short breaks while in bed. -continue neuro checks -Postop MRI C-spine demonstrates postoperative changes with decompression of upper cervical cord, there is evidence of a prior cerebellar stroke noted. CT with occluded bilateral vertebral arteries, but with evidence of collateral posterior flow. On Plavix. Appreciate neurology consultation and recommendations -Appreciate pulm/IM assistance in the management of this patient. Afebrile this am -MRI brain- small cortical cerebellar infarct of uncertain age -Postop xrays completed, hardware in good position -optimize pain control -limit narcotics -PT/OT/EDGE CUTTING MACHINE OPERATOR-CPM -DVT: TEDs, SCDs, Lovenox -anemia: monitoring H&H, has been relatively stable. -placement- likely will need LTAC. OK to transfer to floor once cleared by pulmonology/hospitalists -Please call neurosurgery with any changes in neuro or motor exam 06/30/16 08:35 06/30/16 08:38 Subjective: Difficult night with agitation and confusion requiring precedex but this has resolved. Smiling and mumbling this am following some commands Objective: Vital Signs Temp Pulse Resp BP Pulse Ox 35.9 C L 64 20 122/52 H 100 06/30/16 04:00 06/30/16 06:42 06/30/16 06:00 06/30/16 06:00 06/30/16 06:00 Microbiology 06/27/16 11:15 - Final Sputum, Induced/Suctioned Laboratory Results 06/30/16 05:30 06/30/16 07:00 06/29/16 06/30/16 07/01/16 05:59 05:59 05:59 Intake Total 1097 2958 Output Total 1250 1356 Balance -153 1602 PT 14.4 SEC (12.0-15.0) 06/17/16 00:00 INR 1.13 (0.83-1.16) 06/17/16 00:00 Awake, calm, smiling, mumbling but difficult for family to interpret, follows some but no all commands weakly, does not fully participate in strength exam but wiggles toes, lifts bilateral legs off bed and bends knees weakly, biceps, triceps weak spontanous movement Trach in place - Pending Discharge Pending Discharge Within 24 Hours: No Pending Discharge Within 48 Hours: No ICD10 Worksheet Patient Problems: Problems Problem Status Onset Spinal stenosis in cervical region Acute
[2016-06-30] MEDS: ACETAMINOPHEN 650 MG/20.3 ML UDCUP TUBE PRN ×3 (08:57→19:57)
[2016-06-30] MEDS: ENOXAPARIN 40 MG/0.4 ML SYR SC SCH (08:57)
[2016-06-30] MEDS: CLOPIDOGREL BISULFATE 75 MG TAB TUBE SCH (08:58)
[2016-06-30] MEDS: FAMOTIDINE 20 MG TAB TUBE SCH (08:58)
[2016-06-30] MEDS: METOPROLOL TARTRATE 25 MG TAB TUBE SCH ×2 (08:58→19:57)
[2016-06-30] MEDS: oxyCODONE IR 5 MG TAB TUBE PRN ×3 (08:58→19:57)
[2016-06-30] MEDS: ATORVASTATIN CALCIUM 40 MG TAB TUBE SCH (08:58)
[2016-06-30] MEDS: GABAPENTIN 250 MG/5 ML 30 ML BOTTLE TUBE SCH ×3 (08:59→19:58)
[2016-06-30] MEDS: LEFLUNOMIDE 20 MG TAB TUBE SCH (08:59)
[2016-06-30] MEDS: SENNOSIDES 17.6 MG/10 ML UDL TUBE SCH (09:04)
--- NOTE | 2016-06-30 11:20 | PDINTPN ---
Cnc Operator Machinist Progress Note Assessment/Plan: Assessment: 70 M with chronic RA on chronic steroids admitted for cervical spine surgery with cord compression, and failed extubation in OR thought to be a result of edema. He has been slow to wake, though support has been minimal. 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 He has also had issues with excess sedation. * Respiratory failure with hypoxia 2/2 above. After the OR he remained stable for several days in the ICU, and was extubated but lasted only a few hours so was subsequently re-intubated. After holding all sedating medications he appeared ready for extubation again and was much more interactive and alert, though required Bipap. However, after about 24 hours his O2 requirement increased and his CXR revealed complete white-out on the right. He was re- intubated and had bronchoscopy with significant improvement in his film. As a result, he underwent percutaneous tracheostomy 06/23. Downsized trach 06/28, capped continuously, used for suctioning. * s/p C1-4 laminectomy with cord compression and treated with PSF. Stable from this perspective. Now on soft C-collar, working with PT/OT, strength improving slowly. * Altered mental status- likely related to medications. Worse last night. * PNA- LLL. * RA- on chronic steroids. Agree with maintaining home dose * HTN- Normotensive. * Afib- Remains in NSR with frequent PACs * Hypernatremia: Down to normal range today * Bowel Distension: Persists. * Nutrition: On TF. ? aspiration, tube now advanced to jejunum, feeding resumed , no ongoing s/s of aspiration. Plan: Continue soft collar. Uncap trach tonight to see if that helps his nighttime sleep/breathing. Increase activity. Follow CXR. Repeat Lasix. Hopefully can remove trach in the next 24-48 hours if secretions improve, then to LTAC early next week. Will not move forward at this point with PEG, as his swallow may improve in the next week or so, particularly when trach comes out. 06/30/16 11:25 06/30/16 11:31 Subjective: Slept poorly last night, agitated. Still with cough/secretions sometimes requiring suctioning through trach. Feels his strength is a bit better. Objective: Vital Signs Temp Pulse Resp BP Pulse Ox 36.8 C 85 21 H 129/79 H 97 06/30/16 08:00 06/30/16 10:00 06/30/16 10:00 06/30/16 10:00 06/30/16 10:00 Microbiology 06/27/16 11:15 - Final Sputum, Induced/Suctioned Sputum Culture - Final Laboratory Results 06/30/16 05:30 06/30/16 07:00 06/29/16 06/30/16 07/01/16 05:59 05:59 05:59 Intake Total 1097 2958 Output Total 1250 1356 200 Balance -153 1602 -200 PT 14.4 SEC (12.0-15.0) 06/17/16 00:00 INR 1.13 (0.83-1.16) 06/17/16 00:00 Physical Exam - Physical Exam General Appearance: alert, no apparent distress EENT: normal ENT inspection Neck: other (c-collar, trach OK) Respiratory: lungs clear, normal breath sounds Cardiac/Chest: regular rate, rhythm, No edema Abdomen: normal bowel sounds, non-tender, soft Skin: normal color, warm/dry Extremities: normal inspection Neuro/Psych: alert, normal mood/affect, oriented x 3, motor weakness ICD10 Worksheet Patient Problems: Problems Problem Status Onset Spinal stenosis in cervical region Acute
[2016-06-30] MEDS ORDERED: FUROSEMIDE 40 MG/4 ML VIAL IVP ONE (11:30)
[2016-06-30] MEDS ORDERED: LOPERAMIDE HCL 2 MG CAP PO PRN (13:49)
--- NOTE | 2016-06-30 14:04 | HOSPPROG ---
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 # PVD/stent - plavix/statin # htn - dilt ## high risk with agitated delirium Subjective: very agitated overnight - needed precedex Objective: Vital Signs Temp Pulse Resp BP Pulse Ox 37 C 85 23 H 140/59 H 97 06/30/16 12:00 06/30/16 12:00 06/30/16 12:00 06/30/16 12:00 06/30/16 12:00 Microbiology 06/27/16 11:15 - Final Sputum, Induced/Suctioned Sputum Culture - Final Laboratory Results 06/30/16 05:30 06/30/16 07:00 06/29/16 06/30/16 07/01/16 05:59 05:59 05:59 Intake Total 1097 2958 Output Total 1250 1356 550 Balance -153 1602 -550 PT 14.4 SEC (12.0-15.0) 06/17/16 00:00 INR 1.13 (0.83-1.16) 06/17/16 00:00 - Physical Exam Constitutional: no apparent distress, appears nourished Ears, Nose, Mouth, Throat: other (soft collar, trach) Cardiovascular: regular rate and rhythym, no murmur, rub, or gallop, systolic murmur Respiratory: no respiratory distress, no rales or rhonchi, clear to auscultation Gastrointestinal: normoactive bowel sounds, soft, non-tender abdomen, no palpable masses ICD10 Worksheet Patient Problems: Problems Problem Status Onset Spinal stenosis in cervical region Acute
[2016-06-30] MEDS: LOPERAMIDE HCL 2 MG CAP TUBE PRN ×2 (16:49→23:25)
[2016-06-30] MEDS: AMITRIPTYLINE HCL 10 MG TAB TUBE SCH (19:56)
[2016-06-30] MEDS: predniSONE 5 MG TAB TUBE SCH (19:56)
[2016-06-30] MEDS: MELATONIN 3 MG TAB TUBE SCH (19:57)
[2016-06-30] MEDS: OLANZapine 2.5 MG TAB TUBE SCH (19:57)
[2016-06-30 20:59] LABS: POTASSIUM 2.5 mEq/L (3.5-5.2)
[2016-06-30] MEDS ORDERED: POTASSIUM CL 10 MEQ TAB PO ONE (21:24)
[2016-06-30] MEDS ORDERED: POTASSIUM CL 20 MEQ/15 ML UDCUP PO ONE (21:30)
[2016-07-01] MEDS: ACETAMINOPHEN 650 MG/20.3 ML UDCUP TUBE PRN ×5 (00:04→20:54)
[2016-07-01] MEDS: oxyCODONE IR 5 MG TAB TUBE PRN ×5 (00:04→20:56)
[2016-07-01] MEDS: INSULIN REGULAR HUMAN 100 UNIT/ML SC SCH ×2 (00:09→06:21)
[2016-07-01] MEDS: PIPERACILLIN/TAZO 3.375 GM/DEX 50 ML IV SCH ×5 (00:10→23:49)
[2016-07-01] MEDS: LOPERAMIDE HCL 2 MG CAP TUBE PRN (05:11)
[2016-07-01 06:00] LABS: ANION GAP 11 mEq/L (8-16); CALCIUM 8.4 mg/dL (8.5-10.4); CARBON DIOXIDE 25 mEq/l (22-31); CHLORIDE 108 mEq/L (97-110); GLOMERULAR FILTRATION RATE > 60; GLUCOSE 135 mg/dL (70-100); SODIUM 144 mEq/L (134-144)
[2016-07-01] MEDS: POTASSIUM CL 10 MEQ TAB PO ONE ×2 (07:39→07:49)
[2016-07-01] MEDS: GABAPENTIN 250 MG/5 ML 30 ML BOTTLE TUBE SCH ×3 (07:40→20:57)
[2016-07-01] MEDS ORDERED: POTASSIUM CL 20 MEQ/15 ML UDCUP TUBE ONE ×2 (08:00→18:00)
[2016-07-01] MEDS: LOPERAMIDE HCL 1 MG/5 ML UDCUP TUBE PRN ×3 (08:41→23:49)
[2016-07-01] MEDS: ATORVASTATIN CALCIUM 40 MG TAB TUBE SCH (08:42)
[2016-07-01] MEDS: METOPROLOL TARTRATE 25 MG TAB TUBE SCH ×2 (08:42→20:57)
[2016-07-01] MEDS: CLOPIDOGREL BISULFATE 75 MG TAB TUBE SCH (08:42)
[2016-07-01] MEDS: LEFLUNOMIDE 20 MG TAB TUBE SCH (08:43)
[2016-07-01] MEDS: ENOXAPARIN 40 MG/0.4 ML SYR SC SCH (08:44)
--- NOTE | 2016-07-01 09:37 | PDINTPN ---
Pinking Sewing Machine Operator Progress Note Assessment/Plan: Assessment: 70 M with chronic RA on chronic steroids admitted for cervical spine surgery with cord compression, and failed extubation in OR thought to be a result of edema. He has been slow to wake, though support has been minimal. 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 He has also had issues with excess sedation. * Respiratory failure with hypoxia 2/2 above. After the OR he remained stable for several days in the ICU, and was extubated but lasted only a few hours so was subsequently re-intubated. After holding all sedating medications he appeared ready for extubation again and was much more interactive and alert, though required Bipap. However, after about 24 hours his O2 requirement increased and his CXR revealed complete white-out on the right. He was re- intubated and had bronchoscopy with significant improvement in his film. As a result, he underwent percutaneous tracheostomy 06/23. Downsized trach 06/28, capped continuously, used for suctioning, still with some thick secretions, but improving. * s/p C1-4 laminectomy with cord compression and treated with PSF. Stable from this perspective. Now back on hard C-collar, working with PT/OT, strength improving slowly. * Altered mental status- likely related to medications. Worse last night. * PNA- LLL. Improved on CXR. * RA- on chronic steroids. Agree with maintaining home dose * HTN- Normotensive. Some bradycardia. * Afib- Remains in NSR with frequent PACs * Hypernatremia: Remains in normal range today * Hypokalemia: Improved, but still low * Bowel Distension: Impvoved on CXR * Nutrition: On TF. ? aspiration, tube now advanced to jejunum, feeding resumed , no ongoing s/s of aspiration. * Diarrhea: C.Diff negative. Likely related to TF. CXR shows improved bowel distension, so this could represent return of bowel function. Plan: Continue soft collar. Uncap trach tonight to see if that helps his nighttime sleep/breathing. Increase activity. Follow CXR. Replace K+, Repeat Lasix. Reduce b-nicolas. Reduce TF rate, then consider adding fiber to TF. Hopefully can remove trach in the next 24-48 hours if secretions improve, then to LTAC early next week. Will not move forward at this point with PEG, as his swallow may improve in the next week or so, particularly when trach comes out. 07/01/16 10:46 07/01/16 11:01 Subjective: Slept better last night after getting medication for neck pain. Feels strength is a bit better. Objective: Vital Signs Temp Pulse Resp BP Pulse Ox 36.6 C 76 20 170/66 H 100 07/01/16 08:00 07/01/16 08:00 07/01/16 08:00 07/01/16 08:42 07/01/16 08:00 Microbiology 06/27/16 11:15 - Final Sputum, Induced/Suctioned Sputum Culture - Final Laboratory Results 06/30/16 05:30 07/01/16 05:30 06/30/16 07/01/16 07/02/16 05:59 05:59 05:59 Intake Total 2958 1674 Output Total 1356 552 Balance 1602 1122 PT 14.4 SEC (12.0-15.0) 06/17/16 00:00 INR 1.13 (0.83-1.16) 06/17/16 00:00 CXR: Trending improvement in effusion, which still persists. Physical Exam - Physical Exam General Appearance: alert, no apparent distress EENT: normal ENT inspection Neck: normal inspection, other (trach OK, hard collar in place) Respiratory: lungs clear, normal breath sounds Cardiac/Chest: regular rate, rhythm, No edema Abdomen: normal bowel sounds, non-tender Skin: normal color, warm/dry Extremities: normal inspection Neuro/Psych: alert, normal mood/affect, oriented x 3 ICD10 Worksheet Patient Problems: Problems Problem Status Onset Spinal stenosis in cervical region Acute
[2016-07-01] MEDS ORDERED: FUROSEMIDE 40 MG/4 ML VIAL IVP ONE ×2 (09:46→12:30)
[2016-07-01] MEDS ORDERED: guaiFENesin 600 MG TAB.ER PO SCH (10:30)
--- NOTE | 2016-07-01 10:52 | SOAPPROG ---
SOAP Progress Note Assessment/Plan: Assessment: Assessment: 70 yo male sp sub-occipital craniectomy with C1-C4 laminectomy and posterior fusion Occiput-T1 Plan -agitation resolved - Arm and leg strength is improving daily. Was able stand for a few brief seconds with PT yesterday. Patient mumbling this am -Trach in place -Diet per hospitalists/crit care -Hard collar to be worn at all times, ok for short breaks while in bed. -continue neuro checks -Postop MRI C-spine demonstrates postoperative changes with decompression of upper cervical cord, there is evidence of a prior cerebellar stroke noted. CT with occluded bilateral vertebral arteries, but with evidence of collateral posterior flow. On Plavix. Appreciate neurology consultation and recommendations -Appreciate pulm/IM assistance in the management of this patient. Afebrile this am -MRI brain- small cortical cerebellar infarct of uncertain age -Postop xrays completed, hardware in good position -optimize pain control -limit narcotics -PT/OT/GRINDER BRAKE LINING-CPM -DVT: TEDs, SCDs, Lovenox -anemia: monitoring H&H, has been relatively stable. -placement- likely will need LTAC. Will likely stay in ICU secondary to nursing needs until LTAC -diarhea: continues cdiff negative -appreciate crit care/im input -Please call neurosurgery with any changes in neuro or motor exam 06/30/16 08:35 06/30/16 08:38 07/01/16 10:49 Subjective: Diarhea continues, no further agitation, able to stand for short period with assistance again last night Objective: Vital Signs Temp Pulse Resp BP Pulse Ox 36.6 C 74 16 122/98 H 99 07/01/16 08:00 07/01/16 10:00 07/01/16 10:00 07/01/16 10:00 07/01/16 10:00 Microbiology 06/27/16 11:15 - Final Sputum, Induced/Suctioned Sputum Culture - Final Laboratory Results 06/30/16 05:30 07/01/16 05:30 06/30/16 07/01/16 07/02/16 05:59 05:59 05:59 Intake Total 0221 1674 Output Total 1356 552 Balance 1602 1122 PT 14.4 SEC (12.0-15.0) 06/17/16 00:00 INR 1.13 (0.83-1.16) 06/17/16 00:00 Awake, calm, smiling, Moves all extremities weakly but does not completely follow motor exam commands, incision with some blood crusted on drain, no significant erythema, possible sutures out in am if no drainage Trach in place - Pending Discharge Pending Discharge Within 24 Hours: No ICD10 Worksheet Patient Problems: Problems Problem Status Onset Spinal stenosis in cervical region Acute
[2016-07-01] MEDS: guaiFENesin 200 MG/10 ML UDCUP TUBE SCH ×2 (12:09→20:54)
--- NOTE | 2016-07-01 13:58 | WOCRNPDOC ---
WOCRN Advanced Assessment Note - Skin Integrity Problem, Advanced Assess Scrotum Dressing Type: Open to Air Exudate Amount: None Exudate Characteristic(s): None Integumentary Issue Intervention: Barrier Cream Applied (nursing applying dimethicone and/or calazime to skin) Demetrio Wound Tissue: Blanching, Erythema Skin Integrity Problem Comment: Consulted regarding sores on patient's scrotum. Upon assessment, skin on scrotum and surrounding demetrio-area is intact and blanching. He has mild swelling and erythema throughout this area r/t loose stools, and medication aid Judie reports nursing has been applying dimethicone and calazime w/ demetrio-care to protect skin. No need for wound care to follow patient at this time; advised to reconsult PRN.
--- NOTE | 2016-07-01 14:29 | HOSPPROG ---
Hospitalist Progress Note Assessment/Plan: # metabolic encephalopathy/agitated delirium - better last night - cont zyprexa + non-pharm measures (family very helpful) # SIRS (fever/leukocytosis) - resolved, empiric abx started; WBC has normalized - currently on zosyn, no clear source # a-fib/flutter with RVR: transient bradycardia last night - cont metop 25 -> 12.5 bid down tube; # diarrhea - c dif negative, cont Imodium # severe cervical stenosis with cord compression s/p C1-C4 laminectomy # acute respiratory failure s/p multiple re-intubations, occasionally suctioned via trach # dysphagia d/t trach/surgery - STRUCTURAL SHOP HELPER eval - failed swallow today - currently with NG tube feedings - may need PEG # hyperNa - resolved with free H2O boluses # RA - chronic steroids - prednisone # RA associated ILD # cerebellar CVA - ? 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 # PVD/stent - plavix/statin # htn - metop # aspiration PNA - s/p invanz ## discussed with Dr Upton on ICU rounds Subjective: not agitated overnight last night Objective: Vital Signs Temp Pulse Resp BP Pulse Ox 36.6 C 80 22 H 142/61 H 99 07/01/16 08:00 07/01/16 12:00 07/01/16 12:00 07/01/16 12:00 07/01/16 12:00 Microbiology 06/27/16 11:15 - Final Sputum, Induced/Suctioned Sputum Culture - Final Laboratory Results 06/30/16 05:30 07/01/16 05:30 06/30/16 07/01/16 07/02/16 05:59 05:59 05:59 Intake Total 2958 1674 Output Total 1356 552 650 Balance 1602 1122 -650 PT 14.4 SEC (12.0-15.0) 06/17/16 00:00 INR 1.13 (0.83-1.16) 06/17/16 00:00 - Physical Exam Constitutional: no apparent distress, appears nourished Cardiovascular: regular rate and rhythym, systolic murmur, No irregularly irregular, No diastolic murmur Respiratory: no respiratory distress, no rales or rhonchi, clear to auscultation , other (trach capped) Gastrointestinal: normoactive bowel sounds, soft, non-tender abdomen, no palpable masses ICD10 Worksheet Patient Problems: Problems Problem Status Onset Spinal stenosis in cervical region Acute
[2016-07-01 17:48] LABS: POTASSIUM 2.7 mEq/L (3.5-5.2)
[2016-07-01] MEDS ORDERED: POTASSIUM CL 10 MEQ TAB PO ONE (17:49)
[2016-07-01] MEDS: AMITRIPTYLINE HCL 10 MG TAB TUBE SCH (20:54)
[2016-07-01] MEDS: OLANZapine 2.5 MG TAB TUBE SCH (20:55)
[2016-07-01] MEDS: predniSONE 5 MG TAB TUBE SCH (20:56)
[2016-07-01] MEDS: MELATONIN 3 MG TAB TUBE SCH (20:56)
[2016-07-02 04:41] LABS: % IMMATURE GRANULYOCYTES 0.4 % (0.0-1.1); ABSOLUTE IMMATURE GRANULOCYTES 0.02 10^3/uL (0.00-0.10); ADD DIFF? NO; ADD MORPH? NO; ADD SCAN? NO; ATYPICAL LYMPHOCYTE FLAG 20 (0-99); FRAGMENT RBC FLAG 20 (0-99); HEMATOCRIT 31.9 % (40.0-51.0); LEFT SHIFT FLG 0 (0-99); LIPEMIA HEMOLYSIS FLAG 80 (0-99); MEAN CELL HEMOGLOBIN 26.9 pg (27.9-34.1); MEAN CELL HEMOGLOBIN CONCENTR. 31.3 g/dL (32.4-36.7); MEAN CELL VOLUME 85.8 fL (81.5-99.8); MEAN PLATELET VOLUME 11.4 fL (8.7-11.7); PLATELET CLUMPS FLAG 0 (0-99); PLATELET COUNT 176 10^3/uL (150-400); RED BLOOD CELL COUNT 3.72 10^6/uL (4.40-6.38)
[2016-07-02 04:52] LABS: ALANINE AMINOTRANSFERASE 215 IU/L (21-72); ALBUMIN 2.7 g/dL (3.5-5.0); ALKALINE PHOSPHATASE 130 IU/L (38-126); ANION GAP 9 mEq/L (8-16); ASPARTATE AMINOTRANSFERASE 290 IU/L (17-59); BILIRUBIN,TOTAL 0.9 mg/dL (0.1-1.4); CALCIUM 8.6 mg/dL (8.5-10.4); CARBON DIOXIDE 25 mEq/l (22-31); CHLORIDE 112 mEq/L (97-110); CREATININE 1.1 mg/dL (0.7-1.3); GLOMERULAR FILTRATION RATE > 60; GLUCOSE 136 mg/dL (70-100); POTASSIUM 3.5 mEq/L (3.5-5.2); SODIUM 146 mEq/L (134-144); TOTAL PROTEIN 5.3 g/dL (6.3-8.2)
[2016-07-02] MEDS ORDERED: POTASSIUM CL 20 MEQ/15 ML UDCUP PO ONE (04:58)
[2016-07-02] MEDS: PIPERACILLIN/TAZO 3.375 GM/DEX 50 ML IV SCH ×3 (05:38→18:40)
[2016-07-02] MEDS: guaiFENesin 200 MG/10 ML UDCUP TUBE SCH ×3 (05:39→20:48)
[2016-07-02] MEDS: oxyCODONE IR 5 MG TAB TUBE PRN ×3 (07:42→19:28)
[2016-07-02] MEDS: ENOXAPARIN 40 MG/0.4 ML SYR SC SCH (07:43)
[2016-07-02] MEDS: ATORVASTATIN CALCIUM 40 MG TAB TUBE SCH (07:43)
[2016-07-02] MEDS: LEFLUNOMIDE 20 MG TAB TUBE SCH (07:43)
[2016-07-02] MEDS: CLOPIDOGREL BISULFATE 75 MG TAB TUBE SCH (07:43)
[2016-07-02] MEDS: METOPROLOL TARTRATE 25 MG TAB TUBE SCH (07:43)
[2016-07-02] MEDS: GABAPENTIN 250 MG/5 ML 30 ML BOTTLE TUBE SCH ×3 (07:44→20:47)
--- NOTE | 2016-07-02 08:37 | NEUSURGPN ---
Assessment/Plan: A/P: 70 yo male sp sub-occipital craniectomy with [id number] and posterior fusion Occiput- T1 06/18/16 - Arm and leg strength is improving daily. Was able stand for a few brief seconds with PT yesterday. Patient mumbling this am -Trach in place -Diet per hospitalists/crit care -Hard collar to be worn at all times, ok for short breaks while in bed. -Postop MRI C-spine demonstrates postoperative changes with decompression of upper cervical cord, there is evidence of a prior cerebellar stroke noted. CT with occluded bilateral vertebral arteries, but with evidence of collateral posterior flow. On Plavix. Appreciate neurology consultation and recommendations -MRI brain- small cortical cerebellar infarct of uncertain age -Postop xrays completed, hardware in good position -optimize pain control -limit narcotics -PT/OT/DOUGH RAISER-CPM -DVT: TEDs, SCDs, Lovenox -anemia: monitoring H&H, has been relatively stable. -placement- likely will need LTAC. Will likely stay in ICU secondary to nursing needs until LTAC -diarhea: continues cdiff negative -appreciate crit care/im input -Please call neurosurgery with any changes in neuro or motor exam Seen with Dr. Reeves Subjective: Unable to obtain, resting comfortably Objective: NAD Alert and awake. MAEx4. Incision c/d/i Catheter Insertion Date: 06/14/16 - Physician Patient Seen by : Le[facility] Neurosurgery Physical Exam - Vitals, I&O, Labs I and O 07/01/16 07/02/16 07/03/16 05:59 05:59 05:59 Intake Total 1674 1274 Output Total 552 1150 Balance 1122 124 Weight 43.1 kg Intake: IV Intake (ml) 228 225 IV Infused (ml) 100 Piperacillin/Tazo 3.375 100 gm/Dex 50 ml @ 100 mls/hr IV Q6HRS [facility] Rx#: [id number] Tube Feeding (ml) 946 649 Tube Flush (ml) 400 400 Output: Urine (ml) 352 1150 Incontinence 2 300 Urinal 350 850 Liquid Stool (ml) 200 Incontinence 200 Other: Number of Voids Incontinence 1 1 Urinal 2 Number of Stools Incontinence 1 4 Bladder Scan Volume (ml) Incontinence 275 Vital Signs Temp Pulse Resp BP Pulse Ox 36.5 C 81 21 H 136/62 H 97 07/02/16 08:00 07/02/16 08:00 07/02/16 08:00 07/02/16 08:00 07/02/16 08:00 Laboratory Results 07/02/16 04:22 07/02/16 04:22 ICD10 Worksheet Patient Problems: Problems Problem Status Onset Spinal stenosis in cervical region Acute
[2016-07-02] MEDS ORDERED: POTASSIUM CL 20 MEQ/15 ML UDCUP TUBE PRN (08:38)
[2016-07-02] MEDS ORDERED: METHOCARBAMOL 750 MG TAB TUBE PRN (10:17)
--- NOTE | 2016-07-02 12:26 | HOSPPROG ---
Hospitalist Progress Note Assessment/Plan: # metabolic encephalopathy/agitated delirium - better last night - cont zyprexa + non-pharm measures (family very helpful) # SIRS (fever/leukocytosis) - resolved, empiric abx started; WBC has normalized - currently on zosyn, no clear source # a-fib/flutter with RVR: more bradycardia today - hold metop for now # diarrhea - c dif negative, cont Imodium # severe cervical stenosis with cord compression s/p C1-C4 laminectomy # acute respiratory failure s/p multiple re-intubations, occasionally suctioned via trach - trach is mostly capped # dysphagia d/t trach/surgery - COMPUTER PROGRAMMER eval - failed swallow today - currently with NG tube feedings - may need PEG # hyperNa - resolved with free H2O boluses # RA - chronic steroids - prednisone, leflunomide # RA associated ILD # cerebellar CVA - ? 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 # PVD/stent - plavix/statin # htn - metop # aspiration PNA - s/p invanz ## discussed with Dr Flores on ICU rounds tele reviewed - a-fib Subjective: was not agitated overnight Objective: Vital Signs Temp Pulse Resp BP Pulse Ox 36.5 C 80 25 H 128/62 H 97 07/02/16 08:00 07/02/16 10:00 07/02/16 10:00 07/02/16 10:00 07/02/16 10:00 Laboratory Results 07/02/16 04:22 07/02/16 04:22 07/01/16 07/02/16 07/03/16 05:59 05:59 05:59 Intake Total 1674 1274 Output Total 552 1150 Balance 1122 124 PT 14.4 SEC (12.0-15.0) 06/17/16 00:00 INR 1.13 (0.83-1.16) 06/17/16 00:00 - Physical Exam Constitutional: chronically ill appearing Ears, Nose, Mouth, Throat: other (hard collar) Cardiovascular: regular rate and rhythym, no murmur, rub, or gallop Respiratory: no respiratory distress, no rales or rhonchi, clear to auscultation Gastrointestinal: normoactive bowel sounds, soft, non-tender abdomen, no palpable masses ICD10 Worksheet Patient Problems: Problems Problem Status Onset Spinal stenosis in cervical region Acute
[2016-07-02 14:01] LABS: POTASSIUM 3.4 mEq/L (3.5-5.2)
--- NOTE | 2016-07-02 14:26 | PDINTPN ---
Insulation Applicator Progress Note Assessment/Plan: Assessment: 70 M with chronic RA on chronic steroids admitted for cervical spine surgery with cord compression, and failed extubation in OR thought to be a result of edema, and subsequent tracheostomy placed. He has been slow to wake up, but gradually has returned to baseline. 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 He has also had issues with excess sedation. * Respiratory failure with hypoxia 2/2 above. After the OR he remained stable for several days in the ICU, and was extubated but lasted only a few hours so was subsequently re-intubated. After holding all sedating medications he appeared ready for extubation again and was much more interactive and alert, though required Bipap. However, after about 24 hours his O2 requirement increased and his CXR revealed complete white-out on the right. He was re- intubated and had bronchoscopy and suction of secretions with significant improvement in his film. As a result, he underwent percutaneous tracheostomy . Downsized trach / to a #6. Still with some thick secretions, but improving. we may be able to decannulate in a couple of days If he does well. * S/p C1-4 laminectomy with cord compression and treated with PSF. Stable from this perspective. In a hard C-collar, working with PT/OT, strength improving. * Altered mental status- resolved. * PNA- LLL. Improved on CXR, resolving. * RA- on chronic steroids. Agree with maintaining home dose * HTN- Normotensive. Some bradycardia. * Afib- Remains in NSR with frequent PACs * Hypernatremia: Resolved: 146 * Hypokalemia: Improved, but still low: 3.4... on replacement protocols. * Bowel Distension: Impvoved on CXR * Nutrition: On TF. ? aspiration, tube now advanced to jejunum, feeding resumed , no ongoing s/s of aspiration. * Diarrhea: C.Diff negative. Likely related to TF. CXR shows improved bowel distension, so this could represent return of bowel function. Plan: Continue with tracheostomy tube in place for now. Can be capped during the day. Will assess secretions at least twice a day with trach suctioning. Will on cap tracheostomy at night to help sleep/breathing. Increase activity as tolerated with PT/ OT. Will repeat swallow evaluation with speech therapy once he is D cannulated, probably not before. Follow CXR. Continue tube feedings. Regarding disposition, if he gets decannulated and gets little stronger he will be able to go to a SNF, and avoid an LTAC. 35 minutes of critical care time spent directly with the patient today. Discussed with the patient's son, respiratory, nursing, discharge planning, and the ICU multi disciplinary team. 07/08/16 09:40 Objective: Vital Signs Temp Pulse Resp BP Pulse Ox 36.6 C 79 24 H 123/54 H 93 07/02/16 12:00 07/02/16 14:00 07/02/16 14:00 07/02/16 14:00 07/02/16 14:00 Laboratory Results 07/02/16 04:22 07/02/16 13:20 07/01/16 07/02/16 07/03/16 05:59 05:59 05:59 Intake Total 1674 1274 Output Total 552 1150 Balance 1122 124 PT 14.4 SEC (12.0-15.0) 06/17/16 00:00 INR 1.13 (0.83-1.16) 06/17/16 00:00 ICD10 Worksheet Patient Problems: Problems Problem Status Onset Spinal stenosis in cervical region Acute
--- NOTE | 2016-07-02 15:02 | WOCRNPDOC ---
WOCRLorenzo Advanced Assessment Note - Skin Integrity Problem, Advanced Assess Left Posterior Ankle Dressing Type: Open to Air Exudate Amount: Scant Exudate Characteristic(s): Serosanguinous Radha Wound Tissue: Erythema (that extends over lateral malleolus and is of unclear etiology. Asked RN to show MD.) Wound Bed Color: [place] Site Measurement - Head-to-Toe Length X Width X Depth (cm): 0.4x0.4x0.1 (x2) Pressure Injury Stage: Stage 2, Copier Field Service Technician Related Pressure Injury Pressure Injury Present on Admit: No Skin Integrity Problem Comment: Likely from SCD's. If need to reapply SCD's apply silvasorb to wound beds and large alleyvn life dressing for protection to area. Right Posterior Ankle Pressure Injury Dressing Type: Open to Air Wound Bed Color: Brown Wound Bed Constitution: Scab Site Measurement - Head-to-Toe Length X Width X Depth (cm): 0.5x0.8x0 Pressure Injury Stage: Stage 2, Copier Field Service Technician Related Pressure Injury Pressure Injury Present on Admit: No Skin Integrity Problem Comment: Likely from SCD's. If need to reapply SCD's apply an alleyvn life dressing for protection to area. Assessed with Clifford GORDON.
[2016-07-02] MEDS ORDERED: POTASSIUM CL 10 MEQ TAB PO ONE (15:11)
[2016-07-02] MEDS ORDERED: PROTOCOL POTASSIUM 1 DOSE MISC PRN (19:10)
[2016-07-02] MEDS: MELATONIN 3 MG TAB TUBE SCH (20:48)
[2016-07-02] MEDS: predniSONE 5 MG TAB TUBE SCH (20:49)
[2016-07-02] MEDS: OLANZapine 2.5 MG TAB TUBE SCH (20:49)
[2016-07-02] MEDS: AMITRIPTYLINE HCL 10 MG TAB TUBE SCH (20:49)
[2016-07-03] MEDS: PIPERACILLIN/TAZO 3.375 GM/DEX 50 ML IV SCH ×2 (00:26→05:00)
[2016-07-03] MEDS: oxyCODONE IR 5 MG TAB TUBE PRN ×3 (00:37→20:28)
[2016-07-03 00:41] LABS: POTASSIUM 3.6 mEq/L (3.5-5.2)
[2016-07-03] MEDS ORDERED: POTASSIUM CL 20 MEQ/15 ML UDCUP PO ONE (01:09)
[2016-07-03] MEDS: guaiFENesin 200 MG/10 ML UDCUP TUBE SCH ×3 (05:00→20:27)
[2016-07-03] MEDS: LOPERAMIDE HCL 1 MG/5 ML UDCUP TUBE PRN (05:00)
[2016-07-03 06:03] LABS: ALANINE AMINOTRANSFERASE 201 IU/L (21-72); ALBUMIN 2.5 g/dL (3.5-5.0); ALKALINE PHOSPHATASE 113 IU/L (38-126); ANION GAP 10 mEq/L (8-16); ASPARTATE AMINOTRANSFERASE 208 IU/L (17-59); BILIRUBIN,TOTAL 0.8 mg/dL (0.1-1.4); CALCIUM 8.1 mg/dL (8.5-10.4); CARBON DIOXIDE 18 mEq/l (22-31); CHLORIDE 116 mEq/L (97-110); GLOMERULAR FILTRATION RATE > 60; GLUCOSE 131 mg/dL (70-100); POTASSIUM 4.1 mEq/L (3.5-5.2); SODIUM 144 mEq/L (134-144); TOTAL PROTEIN 5.2 g/dL (6.3-8.2)
[2016-07-03] MEDS: CLOPIDOGREL BISULFATE 75 MG TAB TUBE SCH (09:04)
[2016-07-03] MEDS: LEFLUNOMIDE 20 MG TAB TUBE SCH (09:04)
[2016-07-03] MEDS: GABAPENTIN 250 MG/5 ML 30 ML BOTTLE TUBE SCH ×3 (09:04→20:28)
[2016-07-03] MEDS: ATORVASTATIN CALCIUM 40 MG TAB TUBE SCH (09:04)
[2016-07-03] MEDS: ENOXAPARIN 40 MG/0.4 ML SYR SC SCH (09:04)
--- NOTE | 2016-07-03 11:26 | NEUSURGPN ---
Assessment/Plan: A/P: 70 yo male sp sub-occipital craniectomy with C1-[id number] and posterior fusion Occiput- T1 06/18/16 - Arm and leg strength is improving daily. -Trach in place -Diet per hospitalists/crit care -Hard collar to be worn at all times, ok for short breaks while in bed. -Postop MRI C-spine demonstrates postoperative changes with decompression of upper cervical cord, there is evidence of a prior cerebellar stroke noted. CT with occluded bilateral vertebral arteries, but with evidence of collateral posterior flow. On Plavix. Appreciate neurology consultation and recommendations -MRI brain- small cortical cerebellar infarct of uncertain age -Postop xrays completed, hardware in good position -optimize pain control -limit narcotics -PT/OT/REGULATOR OPERATOR-CPM -DVT: TEDs, SCDs, Lovenox -placement-LTAC once cleared by critical care/medicine -appreciate crit care/im input -Please call neurosurgery with any changes in neuro or motor exam Subjective: resting comfortably in bed Objective: NAD MAEx4. Incision c/d/i Catheter Insertion Date: 06/14/16 - Physician Discussed Patient with : Leandro Neurosurgery Physical Exam - Vitals, I&O, Labs I and O 07/02/16 07/03/16 07/04/16 05:59 05:59 05:59 Intake Total 1274 1493 Output Total 1150 225 Balance 124 1268 Intake: IV Intake (ml) 225 321 Tube Feeding (ml) 649 847 Tube Flush (ml) 400 325 Output: Urine (ml) 1150 225 Incontinence 300 Urinal 850 225 Other: Number of Voids Incontinence 1 1 Urinal 2 Number of Stools Incontinence 4 1 Bladder Scan Volume (ml) Incontinence 275 Microbiology 06/28/16 05:05 Blood Culture - Final Blood 06/27/16 21:00 Blood Culture - Final Blood Vital Signs Temp Pulse Resp BP Pulse Ox 36.8 C 78 19 145/65 H 96 07/03/16 04:00 07/03/16 06:00 07/03/16 06:00 07/03/16 06:00 07/03/16 06:00 Laboratory Results 07/02/16 04:22 07/03/16 05:20 ICD10 Worksheet Patient Problems: Problems Problem Status Onset Spinal stenosis in cervical region Acute
--- NOTE | 2016-07-03 11:29 | HOSPPROG ---
Hospitalist Progress Note Assessment/Plan: 70-year-old man with rheumatoid arthritis needed large cervical surgery for cervical stenosis with cord compression. Complicated hospital course including CVA, respiratory failure requiring intubation currently with a tracheostomy. Overall improving. Plan to decannulate his trach today, follow him for a few days as inpatient. He will need a swallow study in a few days. Hopefully will be ready for care home facility in less than a week. # metabolic encephalopathy/agitated delirium - better last night - cont zyprexa + non-pharm measures (family very helpful) # SIRS (fever/leukocytosis) - resolved, empiric abx started; WBC has normalized - s/p zosyn x 7 days - stop today # a-fib/flutter with RVR: now in sinus, has been nickolas - will hold metop # diarrhea - c dif negative, cont Imodium # severe cervical stenosis with cord compression s/p C1-C4 laminectomy # acute respiratory failure s/p multiple re-intubations, occasionally suctioned via trach - plan to decannulate today, follow as inpatient a few days to assure stability # dysphagia d/t trach/surgery - failed OPHTHALMOLOGY ASSISTANT eval - re-evaluate in a few days, if still aspirating will need PEG # RA - chronic steroids - prednisone, leflunomide # RA associated ILD # cerebellar CVA - ? 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 # PVD/stent - plavix/statin # htn - metop # aspiration PNA - s/p invanz # hyperNa - resolved with free H2O boluses ## discussed with Dr Flores on ICU rounds tele reviewed - a-fib Subjective: no agitation overnight Objective: Vital Signs Temp Pulse Resp BP Pulse Ox 36.8 C 78 19 145/65 H 96 07/03/16 04:00 07/03/16 06:00 07/03/16 06:00 07/03/16 06:00 07/03/16 06:00 Microbiology 06/28/16 05:05 Blood Culture - Final Blood 06/27/16 21:00 Blood Culture - Final Blood Laboratory Results 07/02/16 04:22 07/03/16 05:20 07/02/16 07/03/16 07/04/16 05:59 05:59 05:59 Intake Total 1274 1493 Output Total 1150 225 Balance 124 1268 PT 14.4 SEC (12.0-15.0) 06/17/16 00:00 INR 1.13 (0.83-1.16) 06/17/16 00:00 Vitals reviewed Pleasant, no acute distress Hard collar Trach, uncapped Regular rate and rhythm, no murmurs rubs or gallops No respiratory distress, lungs clear to auscultation bilaterally, no wheezes or rales Abdomen soft nontender, nondistended, no hepatosplenomegaly ICD10 Worksheet Patient Problems: Problems Problem Status Onset Spinal stenosis in cervical region Acute
[2016-07-03 14:01] LABS: POTASSIUM 3.7 mEq/L (3.5-5.2)
[2016-07-03] MEDS ORDERED: POTASSIUM Cl (KCl) 100 ML IV SCH (14:09)
--- NOTE | 2016-07-03 14:46 | PDINTPN ---
Chief Learning Officer Progress Note Assessment/Plan: Assessment: 70 M with chronic RA on chronic steroids admitted for cervical spine surgery with cord compression, and failed extubation in OR thought to be a result of edema, and subsequent tracheostomy placed. He has been slow to wake up, but gradually has returned to baseline. 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 He has also had issues with excess sedation. * Respiratory failure with hypoxia 2/2 above. After the OR he remained stable for several days in the ICU, and was extubated but lasted only a few hours so was subsequently re-intubated. After holding all sedating medications he appeared ready for extubation again and was much more interactive and alert, though required Bipap. However, after about 24 hours his O2 requirement increased and his CXR revealed complete white-out on the right. He was re- intubated and had bronchoscopy and suction of secretions with significant improvement in his film. As a result, he underwent percutaneous tracheostomy . Downsized trach 07/01 to a #6. Secretions have improved. Can decannulate today. * S/p C1-4 laminectomy with cord compression and treated with PSF. Stable from this perspective. In a hard C-collar, working with PT/OT, strength improving. * Altered mental status- resolved. * PNA- LLL. Improved on CXR, resolving. * RA- on chronic steroids. Agree with maintaining home dose * HTN- Normotensive. Some bradycardia. * Afib- Remains in NSR with frequent PACs * Hypernatremia: Resolved * Hypokalemia: Improved, on replacement protocols. * Nutrition: On TF. ? aspiration, tube now advanced to jejunum, feeding resumed , no ongoing s/s of aspiration. * Diarrhea: C.Diff negative. Likely related to TF. CXR shows improved bowel distension, so this could represent return of bowel function. Plan: Will decannulate patient today and observe closely. Increase activity as tolerated with PT/ OT. Will repeat swallow evaluation with speech therapy 2 days after he is decannulated. Follow CXR intermittently, lab. Continue tube feedings. Regarding disposition, to a SNF possibly later this week if he continues to do well. 35 minutes of critical care time spent directly with the patient today. Discussed with the patient's son, respiratory, nursing, discharge planning, and the ICU multi disciplinary team. Addendum: Patient decannulated approximately 2:30 p.m. without any problems. Dressing placed. Subjective: Doing well, comfortable. Trach uncapped. Not many secretions. He denies shortness of breath. Remains quite weak but improving. Legs are weak, buckle underneath him when he tries to stand. Objective: Vital Signs Temp Pulse Resp BP Pulse Ox 37.2 C 83 24 H 148/39 H 97 07/03/16 12:00 07/03/16 14:00 07/03/16 14:00 07/03/16 14:00 07/03/16 14:00 Microbiology 06/28/16 05:05 Blood Culture - Final Blood 06/27/16 21:00 Blood Culture - Final Blood Laboratory Results 07/02/16 04:22 07/03/16 13:45 07/02/16 07/03/16 07/04/16 05:59 05:59 05:59 Intake Total 1274 1493 Output Total 1150 225 Balance 124 1268 PT 14.4 SEC (12.0-15.0) 06/17/16 00:00 INR 1.13 (0.83-1.16) 06/17/16 00:00 Laboratory Tests 07/03/16 05:20 Calcium 8.1 L AST 208 H ALT 201 H Total Protein 5.2 L Albumin 2.5 L Physical Exam - Physical Exam General Appearance: alert, no apparent distress EENT: other (Tracheostomy tube uncapped. On no oxygen.) Neck: other (Collar in place) Respiratory: lungs clear, decreased breath sounds (At bases), other (Few secretions), No rales, No rhonchi, No wheezing Cardiac/Chest: regular rate, rhythm, systolic murmur Abdomen: normal bowel sounds, non-tender, soft Male Genitalia: other (No Lawrence catheter) Skin: normal color, warm/dry Neuro/Psych: motor weakness (Bilateral, all extremities. No new significant change), No no motor/sensory deficits (Improving upper and lower extremity strength, however very remains quite weak), No cognition abnormalities ICD10 Worksheet Patient Problems: Problems Problem Status Onset Spinal stenosis in cervical region Acute
[2016-07-03] MEDS ORDERED: POTASSIUM CL 10 MEQ TAB PO ONE (15:06)
[2016-07-03] MEDS: predniSONE 5 MG TAB TUBE SCH (20:28)
[2016-07-03] MEDS: MELATONIN 3 MG TAB TUBE SCH (20:28)
[2016-07-03] MEDS: OLANZapine 2.5 MG TAB TUBE SCH (20:28)
[2016-07-03] MEDS: AMITRIPTYLINE HCL 10 MG TAB TUBE SCH (20:28)
[2016-07-04] MEDS: LOPERAMIDE HCL 1 MG/5 ML UDCUP TUBE PRN (02:09)
[2016-07-04] MEDS: oxyCODONE IR 5 MG TAB TUBE PRN (02:14)
[2016-07-04] MEDS: guaiFENesin 200 MG/10 ML UDCUP TUBE SCH ×3 (05:35→21:49)
--- NOTE | 2016-07-04 07:51 | SOAPPROG ---
SOAP Progress Note Assessment/Plan: Assessment: 70 yo male s/p C1-C4 laminectomy and occiput to T2 fusion on 06/18 In hard collar. Strength is good overall pain controlled Plan: DC plannning for SNF or LTAC. Will DC sutures prior to transfer to rehab 07/04/16 07:48 Subjective: awake, comfortable, no questions or concerns from patient this AM. Family is present and translates Objective: Vital Signs Temp Pulse Resp BP Pulse Ox 36.7 C 84 18 132/43 H 98 07/04/16 04:00 07/04/16 06:00 07/04/16 06:00 07/04/16 06:00 07/04/16 06:00 Microbiology 06/28/16 05:05 Blood Culture - Final Blood 06/27/16 21:00 Blood Culture - Final Blood Laboratory Results 07/02/16 04:22 07/04/16 05:38 07/03/16 07/04/16 07/05/16 05:59 05:59 05:59 Intake Total 1493 1503 Output Total 225 250 Balance 1268 1253 PT 14.4 SEC (12.0-15.0) 06/17/16 00:00 INR 1.13 (0.83-1.16) 06/17/16 00:00 Incision: CDI NEURO: OGLESBY, sens +LT strength equal and symmetric ICD10 Worksheet Patient Problems: Problems Problem Status Onset Spinal stenosis in cervical region Acute
[2016-07-04] MEDS: ATORVASTATIN CALCIUM 40 MG TAB TUBE SCH (08:11)
[2016-07-04] MEDS: CLOPIDOGREL BISULFATE 75 MG TAB TUBE SCH (08:11)
[2016-07-04] MEDS: GABAPENTIN 250 MG/5 ML 30 ML BOTTLE TUBE SCH ×3 (08:11→21:48)
[2016-07-04] MEDS: ENOXAPARIN 40 MG/0.4 ML SYR SC SCH (08:11)
[2016-07-04] MEDS: LEFLUNOMIDE 20 MG TAB TUBE SCH (08:11)
[2016-07-04] MEDS ORDERED: ALTEPLASE 2 MG VIAL IVP PRN (08:41)
--- NOTE | 2016-07-04 13:20 | PDINTPN ---
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 He has been slow to wake up, but gradually has returned to baseline. 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 He has also had issues with excess sedation. * Respiratory failure with hypoxia 2/2 above. After the OR he remained stable for several days in the ICU, and was extubated but lasted only a few hours so was subsequently re-intubated. After holding all sedating medications he appeared ready for extubation again and was much more interactive and alert, though required Bipap. However, after about 24 hours his O2 requirement increased and his CXR revealed complete white-out on the right. He was re- intubated and had bronchoscopy and suction of secretions with significant improvement in his film. As a result, he underwent percutaneous tracheostomy . Downsized trach 07/01 to a #6. Secretions have improved. D cannulated 07/03. Has done well since. * S/p C1-4 laminectomy with cord compression and treated with PSF. Stable from this perspective. In a hard C-collar, working with PT/OT, strength improving. * Altered mental status- resolved. * PNA- LLL. Improved on CXR, resolving. * RA- on chronic steroids. Agree with maintaining home dose * HTN- Normotensive. Some bradycardia. * Afib- alternates with NSR * Hypernatremia: Resolved * Hypokalemia: Improved, on replacement protocols. * Nutrition: On TF. ? aspiration, tube now advanced to jejunum, feeding resumed , no ongoing s/s of aspiration. * Diarrhea: C.Diff negative. Likely related to TF. CXR shows improved bowel distension, so this could represent return of bowel function. Plan: Can transfer to a medical-surgical bed today Increase activity as tolerated with PT/ OT. Will repeat swallow evaluation tomorrow. Follow CXR intermittently, lab. Continue tube feedings for now. If he fails the swallow evaluation he will need a PEG tube.. Regarding disposition, to a SNF possibly later this week if he continues to do well. 30 minutes of critical care time spent directly with the patient today. Discussed with the patient's son, respiratory, nursing, and the ICU multi disciplinary team. Subjective: Doing well. Remains weak. No pulmonary difficulties or significant secretions since decannulation. Denies shortness of breath. Able to cough. Objective: Vital Signs Temp Pulse Resp BP Pulse Ox 36.9 C 85 22 H 146/59 H 96 07/04/16 11:55 07/04/16 11:55 07/04/16 11:55 07/04/16 11:55 07/04/16 10:00 Laboratory Results 07/02/16 04:22 07/04/16 08:00 07/03/16 07/04/16 07/05/16 05:59 05:59 05:59 Intake Total 1493 1503 Output Total 225 250 Balance 1268 1253 PT 14.4 SEC (12.0-15.0) 06/17/16 00:00 INR 1.13 (0.83-1.16) 06/17/16 00:00 Physical Exam - Physical Exam General Appearance: alert, no apparent distress, thin EENT: PERRL/EOMI, other (On room air) Neck: normal inspection Respiratory: lungs clear, decreased breath sounds (At bases), No rales, No rhonchi, No wheezing Cardiac/Chest: irregularly irregular Abdomen: normal bowel sounds, non-tender, soft, hernia, other (Nasogastric tube in place, tolerating to feedings.) Male Genitalia: other Skin: warm/dry, pallor Extremities: pedal edema (Tr) Neuro/Psych: no motor/sensory deficits (Remains weak), No cognition abnormalities ICD10 Worksheet Patient Problems: Problems Problem Status Onset Spinal stenosis in cervical region Acute
[2016-07-04 13:53] LABS: POTASSIUM 3.5 mEq/L (3.5-5.2)
[2016-07-04] MEDS ORDERED: PROTOCOL POTASSIUM 1 DOSE MISC PRN (14:40)
[2016-07-04 14:48] LABS: ANION GAP 9 mEq/L (8-16); CARBON DIOXIDE 22 mEq/l (22-31); CHLORIDE 113 mEq/L (97-110); CREATININE 0.9 mg/dL (0.7-1.3); GLOMERULAR FILTRATION RATE > 60; GLUCOSE 107 mg/dL (70-100); POTASSIUM 3.9 mEq/L (3.5-5.2); SODIUM 144 mEq/L (134-144)
[2016-07-04] MEDS: POTASSIUM Cl (KCl) 50 ML IV SCH ×6 (15:44→20:35)
[2016-07-04] MEDS ORDERED: OLANZapine 2.5 MG TAB TUBE PRN (15:49)
--- NOTE | 2016-07-04 15:49 | HOSPPROG ---
Hospitalist Progress Note Assessment/Plan: * Severe cervical stenosis with cord compression s/p C1-C4 laminectomy * Acute respiratory failure -re-intubated three times - s/p trach -trach decannulated successfully * Metabolic encephalopathy -improved * s/p Aspiration PNA * RA - chronic steroids -prednisone * RA associated ILD * Cerebellar CVA - ? 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 Objective: Vital Signs Temp Pulse Resp BP Pulse Ox 36.9 C 85 22 H 146/59 H 95 07/04/16 11:55 07/04/16 11:55 07/04/16 11:55 07/04/16 11:55 07/04/16 10:48 Laboratory Results 07/02/16 04:22 07/04/16 14:00 07/03/16 07/04/16 07/05/16 05:59 05:59 05:59 Intake Total 1493 1503 Output Total 225 250 Balance 1268 1253 PT 14.4 SEC (12.0-15.0) 06/17/16 00:00 INR 1.13 (0.83-1.16) 06/17/16 00:00 d/w Dr. Jesus Flores regarding resp status stable tele reviewed - now NSR - Physical Exam Constitutional: no apparent distress, appears nourished, not in pain Cardiovascular: regular rate and rhythym, no murmur, rub, or gallop Respiratory: no respiratory distress, no rales or rhonchi, clear to auscultation Gastrointestinal: normoactive bowel sounds, soft, non-tender abdomen, no palpable masses Skin: no rashes or abrasions, no fluctuance, no induration Neurologic: AAOx3, sensation intact bilaterally Psychiatric: interacting appropriately, not anxious, not encephalopathic, thought process linear ICD10 Worksheet Patient Problems: Problems Problem Status Onset Spinal stenosis in cervical region Acute
[2016-07-04 17:48] LABS: POTASSIUM 3.4 mEq/L (3.5-5.2)
[2016-07-04 18:09] LABS: POTASSIUM 4.5 mEq/L (3.5-5.2)
[2016-07-04 20:12] LABS: POTASSIUM 4.5 mEq/L (3.5-5.2)
[2016-07-04] MEDS ORDERED: METOPROLOL TARTRATE 25 MG TAB PO SCH (21:00)
[2016-07-04] MEDS: AMITRIPTYLINE HCL 10 MG TAB TUBE SCH (21:49)
[2016-07-04] MEDS: MELATONIN 3 MG TAB TUBE SCH (21:52)
[2016-07-04] MEDS: predniSONE 5 MG TAB TUBE SCH (21:52)
[2016-07-05 04:04] LABS: % IMMATURE GRANULYOCYTES 0.4 % (0.0-1.1); ABSOLUTE IMMATURE GRANULOCYTES 0.02 10^3/uL (0.00-0.10); ADD DIFF? NO; ADD MORPH? NO; ADD SCAN? NO; ATYPICAL LYMPHOCYTE FLAG 10 (0-99); FRAGMENT RBC FLAG 20 (0-99); HEMATOCRIT 31.5 % (40.0-51.0); HEMOGLOBIN 9.8 g/dL (13.7-17.5); LEFT SHIFT FLG 0 (0-99); LIPEMIA HEMOLYSIS FLAG 80 (0-99); MEAN CELL HEMOGLOBIN 27.2 pg (27.9-34.1); MEAN CELL HEMOGLOBIN CONCENTR. 31.1 g/dL (32.4-36.7); MEAN CELL VOLUME 87.5 fL (81.5-99.8); MEAN PLATELET VOLUME 10.2 fL (8.7-11.7); PLATELET CLUMPS FLAG 10 (0-99); PLATELET COUNT 177 10^3/uL (150-400); RED CELL DISTRIBUTION WIDTH 18.1 % (11.5-15.2)
[2016-07-05 04:17] LABS: ALANINE AMINOTRANSFERASE 145 IU/L (21-72); ALBUMIN 2.8 g/dL (3.5-5.0); ALKALINE PHOSPHATASE 121 IU/L (38-126); ANION GAP 7 mEq/L (8-16); ASPARTATE AMINOTRANSFERASE 92 IU/L (17-59); BILIRUBIN,TOTAL 0.6 mg/dL (0.1-1.4); CALCIUM 8.9 mg/dL (8.5-10.4); CARBON DIOXIDE 22 mEq/l (22-31); CHLORIDE 114 mEq/L (97-110); CREATININE 0.9 mg/dL (0.7-1.3); GLOMERULAR FILTRATION RATE > 60; GLUCOSE 136 mg/dL (70-100); POTASSIUM 4.5 mEq/L (3.5-5.2); SODIUM 143 mEq/L (134-144); TOTAL PROTEIN 5.4 g/dL (6.3-8.2)
[2016-07-05] MEDS: guaiFENesin 200 MG/10 ML UDCUP TUBE SCH ×3 (06:05→20:45)
--- NOTE | 2016-07-05 07:44 | NEUSURGPN ---
Assessment/Plan: A/P: 70 yo male sp sub-occipital craniectomy with [id number] and posterior fusion Occiput- T1 06/18/16 sutures removed today - Neuro stable -Trach in place -Diet per hospitalists/crit care -Hard collar to be worn at all times, ok for short breaks while in bed. -Postop MRI C-spine demonstrates postoperative changes with decompression of upper cervical cord, there is evidence of a prior cerebellar stroke noted. CT with occluded bilateral vertebral arteries, but with evidence of collateral posterior flow. On Plavix. Appreciate neurology consultation and recommendations -MRI brain- small cortical cerebellar infarct of uncertain age -Postop xrays completed, hardware in good position -optimize pain control -limit narcotics -PT/OT/SCIENTIFIC TECHNICAL WRITER-CPM -DVT: TEDs, SCDs, Lovenox -placement-LTAC once cleared by critical care/medicine -appreciate crit care/im input -Please call neurosurgery with any changes in neuro or motor exam Subjective: Denies any pain Objective: MAEx4, Incision c/d/i. BUE 4+/5, BLE 5/5. Catheter Insertion Date: 06/14/16 - Physician Discussed Patient with : [facility] Physical Exam - Vitals, I&O, Labs I and O 07/04/16 07/05/16 07/06/16 05:59 05:59 05:59 Intake Total 1503 1859 Output Total 250 200 Balance 1253 1659 Intake: Tube Feeding (ml) 1198 1358 Tube Flush (ml) 305 501 Output: Urine (ml) 250 200 Incontinence 250 Urinal 200 Other: Output Comment Bedside Commode smells like md rah notified Number of Voids Bedside Commode 3 1 Incontinence 1 1 Number of Stools Bedside Commode 3 Incontinence 1 Vital Signs Temp Pulse Resp BP Pulse Ox 36.7 C 97 31 H 149/72 H 98 07/04/16 20:00 07/05/16 04:00 07/05/16 04:00 07/05/16 04:00 07/05/16 04:00 Laboratory Results 07/05/16 03:58 07/05/16 03:58 ICD10 Worksheet Patient Problems: Problems Problem Status Onset Spinal stenosis in cervical region Acute
[2016-07-05] MEDS: GABAPENTIN 250 MG/5 ML 30 ML BOTTLE TUBE SCH ×3 (09:53→20:48)
[2016-07-05] MEDS: METOPROLOL TARTRATE 25 MG TAB TUBE SCH ×2 (09:54→20:46)
[2016-07-05] MEDS: ATORVASTATIN CALCIUM 40 MG TAB TUBE SCH (09:57)
[2016-07-05] MEDS: LEFLUNOMIDE 20 MG TAB TUBE SCH (09:57)
[2016-07-05] MEDS: CLOPIDOGREL BISULFATE 75 MG TAB TUBE SCH (09:57)
[2016-07-05] MEDS: ENOXAPARIN 40 MG/0.4 ML SYR SC SCH (09:58)
--- NOTE | 2016-07-05 14:36 | PDINTPN ---
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 He has been slow to wake up, but gradually has returned to baseline. 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 He has also had issues with excess sedation. * Respiratory failure with hypoxia 2/2 above. After the OR he remained stable for several days in the ICU, and was extubated but lasted only a few hours so was subsequently re-intubated. After holding all sedating medications he appeared ready for extubation again and was much more interactive and alert, though required Bipap. However, after about 24 hours his O2 requirement increased and his CXR revealed complete white-out on the right. He was re- intubated and had bronchoscopy and suction of secretions with significant improvement in his film. As a result, he underwent percutaneous tracheostomy . Downsized trach 07/01 to a #6. Secretions have improved. Decannulated 07/03. Has done well since. * S/p C1-4 laminectomy with cord compression and treated with PSF. Stable from this perspective. In a hard C-collar, working with PT/OT, strength improving. * Altered mental status- resolved. * PNA- LLL. Resolved. * RA- on chronic steroids. Agree with maintaining home dose * HTN- Normotensive. Some bradycardia. * Afib- alternates with NSR * Hypernatremia: Resolved * Hypokalemia: Improved, on replacement protocols. * Nutrition: Passed swallow evaluation today. NG pulled. Starting to eat with precautions.. * Diarrhea: Resolved. Plan: Continue present care. Advance diet per recommendations from speech. Began to work on discharge. Anticipate SNF placement a in the near future. Family would like him to be more towards [place].. 30 minutes of critical care time spent directly with the patient today. Discussed with the patient's son, nursing, and the ICU multi disciplinary team. Subjective: Doing well. Denies shortness of breath. No cough or mucus. Stronger. Passed swallow. Objective: Vital Signs Temp Pulse Resp BP Pulse Ox 36.8 C 89 22 H 174/73 H 98 07/05/16 12:51 07/05/16 12:51 07/05/16 12:51 07/05/16 12:51 07/05/16 12:51 Laboratory Results 07/05/16 03:58 07/05/16 03:58 07/04/16 07/05/16 07/06/16 05:59 05:59 05:59 Intake Total 1503 1859 639 Output Total 250 200 Balance 1253 1659 639 PT 14.4 SEC (12.0-15.0) 06/17/16 00:00 INR 1.13 (0.83-1.16) 06/17/16 00:00 Laboratory Tests 07/05/16 03:58 Calcium 8.9 Total Bilirubin 0.6 AST 92 H ALT 145 H Albumin 2.8 L Physical Exam - Physical Exam General Appearance: alert, no apparent distress EENT: other (On room air) Neck: other (Hard collar in place. Dressing over trach site) Respiratory: normal breath sounds, No rales, No rhonchi, No wheezing Cardiac/Chest: irregularly irregular Abdomen: normal bowel sounds, non-tender, soft Skin: warm/dry, pallor Extremities: pedal edema (Trace) Neuro/Psych: no motor/sensory deficits, motor weakness (Generalized), No speech abnormalities ICD10 Worksheet Patient Problems: Problems Problem Status Onset Spinal stenosis in cervical region Acute
--- NOTE | 2016-07-05 16:54 | HOSPPROG ---
Hospitalist Progress Note Assessment/Plan: * Severe cervical stenosis with cord compression s/p C1-C4 laminectomy * Acute respiratory failure -re-intubated three times - s/p trach -trach decannulated successfully * Metabolic encephalopathy -improved * s/p Aspiration PNA * RA - chronic steroids -prednisone * RA associated ILD * Cerebellar CVA - ? 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 * PVD/stent -Plavix/statin * Dysphagia - now on nectar thick liquids * Afib/flutter - paroxysmal -another tachycardia episode last night -will retry low dose metoprolol Subjective: doing great today, stronger Objective: Vital Signs Temp Pulse Resp BP Pulse Ox 36.7 C 80 24 H 152/73 H 97 07/05/16 15:26 07/05/16 15:26 07/05/16 15:26 07/05/16 15:26 07/05/16 15:26 Laboratory Results 07/05/16 03:58 07/05/16 03:58 07/04/16 07/05/16 07/06/16 05:59 05:59 05:59 Intake Total 1503 1859 639 Output Total 250 200 Balance 1253 1659 639 PT 14.4 SEC (12.0-15.0) 06/17/16 00:00 INR 1.13 (0.83-1.16) 06/17/16 00:00 - Physical Exam Constitutional: no apparent distress, appears nourished, not in pain Cardiovascular: regular rate and rhythym, no murmur, rub, or gallop Respiratory: no respiratory distress, no rales or rhonchi, clear to auscultation Gastrointestinal: normoactive bowel sounds, soft, non-tender abdomen, no palpable masses Skin: no rashes or abrasions, no fluctuance, no induration Neurologic: AAOx3, sensation intact bilaterally Psychiatric: interacting appropriately, not anxious, not encephalopathic, thought process linear ICD10 Worksheet Patient Problems: Problems Problem Status Onset Spinal stenosis in cervical region Acute
[2016-07-05] MEDS: ACETAMINOPHEN 650 MG/20.3 ML UDCUP TUBE PRN (20:45)
[2016-07-05] MEDS: MELATONIN 3 MG TAB TUBE SCH (20:47)
[2016-07-05] MEDS: predniSONE 5 MG TAB TUBE SCH (20:47)
[2016-07-05] MEDS: AMITRIPTYLINE HCL 10 MG TAB TUBE SCH (20:47)
[2016-07-06] MEDS: guaiFENesin 200 MG/10 ML UDCUP TUBE SCH (06:33)
[2016-07-06 08:30] VITALS: BP 163/77; RESP 29; TEMP 98.6
[2016-07-06] MEDS: LEFLUNOMIDE 20 MG TAB TUBE SCH (08:37)
[2016-07-06] MEDS: ENOXAPARIN 40 MG/0.4 ML SYR SC SCH (08:37)
[2016-07-06] MEDS: GABAPENTIN 250 MG/5 ML 30 ML BOTTLE TUBE SCH (08:38)
[2016-07-06] MEDS: METOPROLOL TARTRATE 25 MG TAB TUBE SCH (08:38)
[2016-07-06] MEDS: CLOPIDOGREL BISULFATE 75 MG TAB TUBE SCH (08:38)
[2016-07-06 08:39] VITALS: PULSE 91
[2016-07-06] MEDS: ATORVASTATIN CALCIUM 40 MG TAB TUBE SCH (08:45)
--- NOTE | 2016-07-06 09:48 | PDIAF ---
<TamraEbony - Last Filed: 07/06/16 10:03> - Medication Management Discharge Medications: Medications to Continue on Transfer Amitriptyline HCl 20 mg PO HS 06/13/16 [Last Taken Unknown] Atorvastatin Calcium 40 mg PO DAILY 06/13/16 [Last Taken 06/13/16] Clopidogrel Bisulfate [Clopidogrel] 75 mg PO DAILY 06/13/16 [Last Taken 06/13/16 ] Gabapentin 300 mg PO BID@06/13/16 [Last Taken 06/13/16] Gabapentin 600 mg PO DAILY@08 06/13/16 [Last Taken 06/13/16] Hydrocodone/Acetaminophen [Hydrocodon-Acetaminophen 5-325] 1 each PO Q6H PRN [Last Taken Unknown] LEFLUNOMIDE 20 mg PO DAILY 06/13/16 [Last Taken 06/13/16] Pantoprazole Sodium 40 mg PO DAILY 06/13/16 [Last Taken 06/13/16] predniSONE [Prednisone] 5 mg PO HS 06/13/16 [Last Taken Unknown] Apixaban [Eliquis] 2.5 mg PO BID #0 tab 07/06/16 [Last Taken Unknown] Metoprolol Tartrate [Lopressor 25 mg (*)] 12.5 mg TUBE BID #0 tab 07/06/16 [ Last Taken Unknown] Discharge Medications: Refer to the Discharge Home Medication list for PRN reason. - Follow Up Care Current Providers and Referrals: UNKNOWN,DOCTOR [Other] Los Reeves MD [Medical Doctor] - (Follow up 4 weeks, with xrays of the cervical spine) <Nat Segundo - Last Filed: 07/06/16 11:23> - Diagnosis Diagnosis: cervical stenosis, afib, resp failure Code Status: Full Code - Medication Management Discharge Medications: Refer to the Discharge Home Medication list for PRN reason. - Orders Services needed: Physical Therapy, Occupational Therapy, Speech Language Pathologist Diet Recommendation: no restrictions on diet Diet Texture: Dysphagia 1 - Pureed, [place] Thick Liquids, Meds Crushed in Puree Additional: Hard collar to be worn at all times, ok for short breaks while in bed.
--- NOTE | 2016-07-06 10:13 | NEUSURGPN ---
Assessment/Plan: A/P: 70 yo male sp sub-occipital craniectomy with [id number] and posterior fusion Occiput- T1 06/18/16 -Diet per hospitalists/crit care -Hard collar to be worn at all times, ok for short breaks while in bed. -Postop MRI C-spine demonstrates postoperative changes with decompression of upper cervical cord, there is evidence of a prior cerebellar stroke noted. CT with occluded bilateral vertebral arteries, but with evidence of collateral posterior flow. On Plavix. 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 Incision c/d/i Catheter Insertion Date: 06/14/16 - Physician Discussed Patient with : [facility] Physical Exam - Vitals, I&O, Labs I and O 07/05/16 07/06/16 07/07/16 05:59 05:59 05:59 Intake Total 1859 1089 50 Output Total 200 375 Balance 1659 714 50 Intake: Oral (ml) 450 50 Tube Feeding (ml) 1358 639 Tube Flush (ml) 501 Output: Urine (ml) 200 Urinal 200 Urine/Stool Mix (ml) 375 Incontinence 375 Other: Intake Quantity Yes Sufficient Output Comment Bedside Commode smells like md rah notified Number of Voids Bedside Commode 3 1 Incontinence 1 1 1 Number of Stools Bedside Commode 3 Incontinence 1 Vital Signs Temp Pulse Resp BP Pulse Ox 37.0 C 91 29 H 163/77 H 99 07/06/16 08:00 07/06/16 08:38 07/06/16 08:00 07/06/16 08:38 07/06/16 08:00 Laboratory Results 07/05/16 03:58 07/05/16 03:58 ICD10 Worksheet Patient Problems: Problems Problem Status Onset Spinal stenosis in cervical region Acute
--- NOTE | 2016-07-06 12:37 | SOAPPROG ---
SOAP Progress Note Assessment/Plan: Assessment: 70 M with chronic RA on chronic steroids admitted for cervical spine surgery with cord compression, and failed extubation in OR thought to be a result of edema, and subsequent tracheostomy placed. He has been slow to wake up, but gradually has returned to baseline. 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 He has also had issues with excess sedation. * Respiratory failure with hypoxia 2/2 above. After the OR he remained stable for several days in the ICU, and was extubated but lasted only a few hours so was subsequently re-intubated. After holding all sedating medications he appeared ready for extubation again and was much more interactive and alert, though required Bipap. However, after about 24 hours his O2 requirement increased and his CXR revealed complete white-out on the right. He was re- intubated and had bronchoscopy and suction of secretions with significant improvement in his film. As a result, he underwent percutaneous tracheostomy . Downsized trach 07/01 to a #6. Secretions have improved. Decannulated 07/03. Has done well since. * S/p C1-4 laminectomy with cord compression and treated with PSF. Stable from this perspective. In a hard C-collar, working with PT/OT, strength improving. * Altered mental status- resolved. * PNA- LLL. Resolved. * RA- on chronic steroids. Agree with maintaining home dose * HTN- Normotensive. Some bradycardia. * Afib- alternates with NSR * Hypernatremia: Resolved * Hypokalemia: Improved, on replacement protocols. * Nutrition: Passed swallow evaluation today. NG pulled. Starting to eat with precautions.. * Diarrhea: Resolved. Collar taken off all the patient was lying in bed, the had stabilized. The dressing was taken off his tracheostomy site. The tracheostomy site is healing well, totally closed now, without any evidence of infection. A Band-Aid was applied and the collar replaced. Plan: Discharge to SNF today for continued rehabilitation and strengthening. Hopefully back to home with his family in the next month or so no specific pulmonary therapies required. No further antibiotics needed.. Subjective: Doing well, no complaints, breathing well. No cough, mucus or congestion. Remains weak, but stronger. Ready for discharge to SNF. Objective: Vital Signs Temp Pulse Resp BP Pulse Ox 37.0 C 91 29 H 163/77 H 99 07/06/16 08:00 07/06/16 08:38 07/06/16 08:00 07/06/16 08:38 07/06/16 08:00 Laboratory Results 07/05/16 03:58 07/05/16 03:58 07/05/16 07/06/16 07/07/16 05:59 05:59 05:59 Intake Total 1859 1089 50 Output Total 200 375 Balance 1659 714 50 PT 14.4 SEC (12.0-15.0) 06/17/16 00:00 INR 1.13 (0.83-1.16) 06/17/16 00:00 Physical Exam - Physical Exam General Appearance: alert, no apparent distress EENT: other (On room air) Neck: other (Hard collar) Respiratory: lungs clear, decreased breath sounds (And excursions), No rales, No rhonchi Cardiac/Chest: irregularly irregular Abdomen: normal bowel sounds, non-tender, soft Skin: warm/dry, pallor Lymphatic: no adenopathy Extremities: other (Chronic changes of rheumatoid arthritis, muscle wasting, etc.), No pedal edema Neuro/Psych: no motor/sensory deficits (Moves all extremities equally, sensation intact), motor weakness (Globally), No cognition abnormalities ICD10 Worksheet Patient Problems: Problems Problem Status Onset Spinal stenosis in cervical region Acute
[2016-07-06 13:08] VITALS: O2SAT 97
--- NOTE | 2016-07-06 19:00 | GDS ---
[f rep st] DISCHARGE SUMMARY DISCHARGE DIAGNOSES: 1. Severe cervical stenosis with cord compression status post C1 through C4 laminectomy. 2. Acute respiratory failure requiring tracheostomy. 3. Metabolic encephalopathy. 4. Aspiration pneumonia. 5. Dysphagia. 6. Rheumatoid arthritis on chronic steroids and immunosuppression. 7. Rheumatoid arthritis-associated interstitial lung disease. 8. Cerebellar stroke. 9. Atrial fibrillation. 10. Bilateral vertebral artery occlusion due to chronic cervical spine disease. 11. Peripheral vascular disease, status post stent. HISTORY: The patient is a 70-year-old male with a prolonged hospitalization for severe cervical amy nosis. He initially had to be in traction for a prolonged period of time requiring quite a bit of m edication for symptom control. Eventually, he went to surgery and had a C1 through C4 laminectomy. Mental status was extraordinarily poor for a prolonged period of time after surgery probably due to the excessive medications required for symptom control. He had acute respiratory failure and was r eintubated 3 times. On his third intubation, a tracheostomy was placed. Once the trach was placed, his respiratory status did improve, and we were able to successfully decannulate his trach prior to hospital discharge. He was treated for aspiration pneumonia. He received tube feeds but has now p assed a swallow evaluation for nectar thick liquids. He was noted to be in intermittent AFib and Aflutter. He was started on low-dose metoprolol. MRI o f the brain did show a subacute cerebellar stroke. CT angiogram showed bilateral vertebral artery o cclusion. This was felt to be due to his chronic cervical spine disease. Given his AFib, however, anticoagulation is indicated, and he was cleared by Neurosurgery to initiate Eliquis at the time of hospital discharge. DISCHARGE MEDICATIONS: Please see computer record for full detailed list. New medications: 1. Metoprolol 12.5 mg p.o. b.i.d. 2. Eliquis 2.5 mg p.o. b.i.d. ADDITIONAL DISCHARGE INSTRUCTIONS: 1. Transferring to [facility] for rehabilitation. 2. Hard collar to be worn at all times. Okay for short breaks while in bed. 3. Dysphagia 1 diet, pureed, nectar thick liquids, medications crushed in puree. 4. Follow up with Dr. Geovanni Tran in 4 weeks with followup x-rays of the cervical spine at that time. Greater than 30 minutes' time was spent arranging this discharge. Patient was seen and examined by me on the day of discharge. /[id number]/MODL
[2016-07-06] MEDS ORDERED: APIXABAN 2.5 MG TAB PO SCH (21:00)
== END 2016-07-06 11:04 | DRG 3 ==
LOC: F2N 17:05 → EDSEX 17:05
PROVIDERS: ADMIT Neurological Surgery; ATTEND Neurological Surgery
PROC: 0RS Upper Joints, Reposition (ICD-10-PCS; 2016-06-14)
PROC: 2W60X0Z Traction of Head using Traction Apparatus (ICD-10-PCS; 2016-06-14)
PROC: 0RG20AJ Fusion of 2 or more Cervical Vertebral Joints with Interbody Fusion Device, Posterior Approach, Anterior Column, Open Approach (ICD-10-PCS; principal; 2016-06-17 08:00)
PROC: 8E09XBZ Computer Assisted Procedure of Head and Neck Region (ICD-10-PCS; principal; 2016-06-17 08:00)
PROC: 00NW0ZZ Release Cervical Spinal Cord, Open Approach (ICD-10-PCS; principal; 2016-06-17 08:00)
PROC: 4A1004G Monitoring of Central Nervous Electrical Activity, Intraoperative, Open Approach (ICD-10-PCS; principal; 2016-06-17 08:00)
PROC: 0PS304Z Reposition Cervical Vertebra with Internal Fixation Device, Open Approach (ICD-10-PCS; principal; 2016-06-17 08:00)
PROC: 0RG40AJ Fusion of Cervicothoracic Vertebral Joint with Interbody Fusion Device, Posterior Approach, Anterior Column, Open Approach (ICD-10-PCS; principal; 2016-06-17 08:00)
PROC: 0B938ZZ Drainage of Right Main Bronchus, Via Natural or Artificial Opening Endoscopic (ICD-10-PCS; 2016-06-22)
PROC: 5A1955Z Respiratory Ventilation, Greater than 96 Consecutive Hours (ICD-10-PCS; 2016-06-22)
PROC: 0BH17EZ Insertion of Endotracheal Airway into Trachea, Via Natural or Artificial Opening (ICD-10-PCS; 2016-06-22)
PROC: 0B114F4 Bypass Trachea to Cutaneous with Tracheostomy Device, Percutaneous Endoscopic Approach (ICD-10-PCS; 2016-06-23)
PROC: 30233N1 Transfusion of Nonautologous Red Blood Cells into Peripheral Vein, Percutaneous Approach (ICD-10-PCS; 2016-06-23)
PROC: 02HV33Z Insertion of Infusion Device into Superior Vena Cava, Percutaneous Approach (ICD-10-PCS; 2016-07-04)
DX: M48.02 Spinal stenosis, cervical region (principal); J96.00 Acute respiratory failure, unspecified whether with hypoxia or hypercapnia; G93.41 Metabolic encephalopathy; I63.9 Cerebral infarction, unspecified; J69.0 Pneumonitis due to inhalation of food and vomit; R13.10 Dysphagia, unspecified; M05.10 Rheumatoid lung disease with rheumatoid arthritis of unspecified site; I48.91 Unspecified atrial fibrillation; I65.03 Occlusion and stenosis of bilateral vertebral arteries; I73.9 Peripheral vascular disease, unspecified; Z87.891 Personal history of nicotine dependence; E78.00 Pure hypercholesterolemia, unspecified; I11.0 Hypertensive heart disease with heart failure; I50.30 Unspecified diastolic (congestive) heart failure
CPT/HCPCS: 92507-GN; 92523-GN; 92526-GN; 92610-GN; 92611-GN; 97112-GO; 97116-GP; 97161-GP; 97164-GP; 97165-GO; 97168-GO; 97530-GO; 97530-GP; 97535-GO; C1713; C1751; G0009; G8978-GP-CM; G8979-GP-CK; G8979-GP-CL; G8987-GO-CM; G8987-GO-CN; G8988-GO-CK; G8996-GN-CJ; G8996-GN-CL; G8996-GN-CM; G8997-GN-CJ; G8997-GN-CL; G8998-GN-CJ; G8998-GN-CL; G8998-GN-CM; G9171-GN-CL; G9172-GN-CI; G9172-GN-CL; G9173-GN-CL; J0330; J0360; J0690; J1100; J1200; J1335; J1650; J1815; J2060; J2250; J2370; J2405; J2543; J2704; J2765; J2800; J2930; J3010; J3370; J3475; P9016; P9021; P9041; Q9967